=== PATIENT | female | born 1930 | race Caucasian/White ===

== ENCOUNTER 2017-03-05 13:58 | Inpatient (IN) | payer MEDICARE, OTHER ==
[~2017-03-05] VITALS: Ht 157.5 cm; Wt 53.5 kg
--- NOTE | 2017-03-05 14:34 | Emergency Room Report ---
History of Present Illness General Chief Complaint: Gastrointestinal Bleed Source: Family Member Present Illness HPI Patient is a 86-year-old female who presented after increased rectal bleeding. Patient was noted to have prior history of ulcer disease. The patient had reportedly been taking increased nonsteroidal anti-inflammatory medications after the shoulder reduction. Injury reportedly had been healed. The patient had not been vomiting any blood. She reportedly had a bloody stool intermittently for the past one week. History is obtained from the patient's daughter. The patient had been referred to Dr. Concepcion for GI as well as Dr. Jc June. Allergies: Coded Allergies: No Known Allergies (Unverified , 03/05/17) Patient History Past Medical History: see triage record Reviewed Nursing Documentation: PMH: Agreed, PSxH: Agreed Nursing Documentation-PMH Hx Cardiac Problems: No Hx Hypertension: No Hx Pacemaker: No Hx Asthma: No Hx COPD: No Hx Diabetes: No Hx Cancer: No Hx Gastrointestinal Problems: Yes Hx Dialysis: No - Acute kidney injury History Of Psychiatric Problem: No Hx Neurological Problems: No Hx Cerebrovascular Accident: No Hx Seizures: No Review of Systems All Other Systems: negative except mentioned in HPI Physical Exam Vital Signs Date Time Temp Pulse Resp B/P (MAP) Pulse Ox O2 Delivery O2 Flow Rate FiO2 03/05/17 14:10 98.4 83 16 136/73 97 Room Air Sp02 EP Interpretation: reviewed, normal General Appearance: normal inspection, well appearing, no apparent distress, alert, GCS 15 Head: atraumatic ENT: normal ENT inspection, hearing grossly normal, normal voice Neck: normal inspection, full range of motion, supple, no bony tend Respiratory: normal inspection, lungs clear, normal breath sounds, no respiratory distress, no retraction, no wheezing Cardiovascular #1: regular rate, rhythm Gastrointestinal: normal inspection, normal bowel sounds, non tender, soft, no guarding, no hernia Genitourinary: no CVA tenderness Musculoskeletal: normal inspection, back normal, normal range of motion Neurologic: normal inspection, alert, responsive, speech normal Psychiatric: normal inspection, judgement/insight normal, mood/affect normal Skin: normal inspection, normal color, no rash Medical Decision Making Diagnostic Impression: Primary Impression: Anemia Additional Impressions: Rectal bleed Hx of ulcer disease ER Course Patient presented for rectal bleeding. The patient presented for rectal bleeding. The differential diagnosis included but was not limited to ulcer, diverticulosis, aortic aneurysm, arteriovenous formation, coagulopathy, cancer among others. Because of complexity of patient's case laboratory testing and imaging studies were ordered.The laboratory studies showed initial hemoglobin of 10. The patient noted to have adequate platelet count. Dr. Jc June was contacted for inpatient management due to prior relationship with the patient and continuity of care. Labs Test 03/05/17 14:48 03/05/17 15:20 White Blood Count 9.7 K/UL (4.8-10.8) Red Blood Count 3.60 M/UL (4.20-5.40) Hemoglobin 10.8 G/DL (12.0-16.0) Hematocrit 33.7 % (37.0-47.0) Mean Corpuscular Volume 94 FL (80-99) Mean Corpuscular Hemoglobin 30.2 PG (27.0-31.0) Mean Corpuscular Hemoglobin Concent 32.2 G/DL (32.0-36.0) Red Cell Distribution Width 13.3 % (11.6-14.8) Platelet Count 300 K/UL (150-450) Mean Platelet Volume 6.9 FL (6.5-10.1) Neutrophils (%) (Auto) 67.8 % (45.0-75.0) Lymphocytes (%) (Auto) 23.3 % (20.0-45.0) Monocytes (%) (Auto) 6.9 % (1.0-10.0) Eosinophils (%) (Auto) 0.8 % (0.0-3.0) Basophils (%) (Auto) 1.2 % (0.0-2.0) Prothrombin Time 10.2 SEC (9.30-11.50) Prothromb Time International Ratio 1.0 (0.9-1.1) Activated Partial Thromboplast Time 25 SEC (23-33) Sodium Level 140 MMOL/L (136-145) Potassium Level 4.0 MMOL/L (3.5-5.1) Chloride Level 105 MMOL/L (98-107) Carbon Dioxide Level 24 MMOL/L (21-32) Anion Gap 11 mmol/L (5-15) Blood Urea Nitrogen 17 mg/dL (7-18) Creatinine 1.3 MG/DL (0.55-1.30) Estimat Glomerular Filtration Rate mL/min (>60) Glucose Level 72 MG/DL (74-106) Calcium Level 8.6 MG/DL (8.5-10.1) Total Bilirubin 0.2 MG/DL (0.2-1.0) Aspartate Amino Transf (AST/SGOT) 17 U/L (15-37) Alanine Aminotransferase (ALT/SGPT) 23 U/L (12-78) Alkaline Phosphatase 45 U/L (46-116) Troponin I 0.000 ng/mL (0.000-0.056) Total Protein 7.3 G/DL (6.4-8.2) Albumin 3.5 G/DL (3.4-5.0) Globulin 3.8 g/dL Albumin/Globulin Ratio 0.9 (1.0-2.7) Lipase 106 U/L (73-393) Salicylates Level 4.5 ug/mL (2.8-20) Urine Color Pale yellow Urine Appearance Clear Urine pH 6 (4.5-8.0) Urine Specific [place] 1.015 (1.005-1.035) Urine Protein Negative (NEGATIVE) Urine Glucose (UA) Negative (NEGATIVE) Urine Ketones Negative (NEGATIVE) Urine Occult Blood 2+ (NEGATIVE) Urine Nitrite Negative (NEGATIVE) Urine Bilirubin Negative (NEGATIVE) Urine Urobilinogen Normal MG/DL (0.0-1.0) Urine Leukocyte Esterase Negative (NEGATIVE) Urine RBC 5-10 /HPF (0 - 2) Urine WBC 0-2 /HPF (0 - 2) Urine Squamous Epithelial Cells Occasional /LPF Urine Bacteria Occasional /HPF (NONE) EKG Diagnostic Results Rate: normal Rhythm: NSR ST Segments: no acute changes Rhythm Strip Diag. Results EP Interpretation: yes Rhythm: NSR, no PVC's, no ectopy Last Vital Signs Date Time Temp Pulse Resp B/P (MAP) Pulse Ox O2 Delivery O2 Flow Rate FiO2 03/05/17 14:10 98.4 83 16 136/73 97 Room Air Status: unchanged Disposition: ADMITTED INPATIENT Condition: Serious Ernst Delgado Mar 05, 2017 14:34
[2017-03-05 15:00] VITALS: BP 136/65
[2017-03-05 15:09] LABS: ANION GAP 11 mmol/L (5-15); CALCIUM 8.6 MG/DL (8.5-10.1); CARBON DIOXIDE 24 MMOL/L (21-32); CHLORIDE 105 MMOL/L (98-107); CREATININE 1.3 MG/DL (0.55-1.30); SODIUM 140 MMOL/L (136-145)
[2017-03-05 15:10] LABS: BASOPHILS % (AUTO) 1.2 % (0.0-2.0); EOSINOPHILS % (AUTO) 0.8 % (0.0-3.0); LYMPHOCYTES % (AUTO) 23.3 % (20.0-45.0); MEAN CORPUSCULAR HEMOGLOBIN 30.2 PG (27.0-31.0); MEAN CORPUSCULAR HGB CONC 32.2 G/DL (32.0-36.0); MEAN CORPUSCULAR VOLUME 94 FL (80-99); MEAN PLATELET VOLUME 6.9 FL (6.5-10.1); MONOCYTES % (AUTO) 6.9 % (1.0-10.0); NEUTROPHILS % (AUTO) 67.8 % (45.0-75.0); PLATELET COUNT 300 K/UL (150-450); PROTHROMBIN TIME 10.2 SEC (9.30-11.50); RED CELL DISTRIBUTION WIDTH 13.3 % (11.6-14.8); WHITE BLOOD COUNT 9.7 K/UL (4.8-10.8)
[2017-03-05 15:13] LABS: ALANINE AMINOTRANSFERASE 23 U/L (12-78); ALBUMIN/GLOBULIN RATIO 0.9 (1.0-2.7); ASPARTATE AMINO TRANSFERASE 17 U/L (15-37); LIPASE 106 U/L (73-393); TOTAL PROTEIN 7.3 G/DL (6.4-8.2)
--- NOTE | 2017-03-05 15:29 | GI Initial Consult Note ---
PreciousCarina Womackoi N.PKorina 03/05/17 1529: History of Present Illness General Date patient seen: Mar 05, 2017 Time patient seen: 15:16 Reason for Hospitalization: Gastrointestinal Bleed Reason for Consultation: RECTAL BLEED Present Illness HPI Patient is a 86-year-old female who presented after increased rectal bleeding. Patient was noted to have prior history of ulcer disease. The patient had reportedly been taking increased nonsteroidal anti-inflammatory medications after the shoulder reduction. Injury reportedly had been healed. The patient had not been vomiting any blood. She reportedly had a bloody stool intermittently for the past one week. History is obtained from the patient's daughter. The patient had been referred to Dr. Perales for GI as well as Dr. Jc June. GI consulted for rectal bleed. HPI as noted above. Pt seen on ED, awake A&Ox4 NAD with no active s/sx of N/V/D. All history obtained from daughter. Last episode of rectal bleed was yesterday and minimal; described as bright red and chunks of maroon color. No hematochezia or melena. Patient takes prune juice for her constipation. External hemorrhoids noted. No active rectal bleed at this time. Per daughter, the patient tends to overdose herself on NSAIDS for her ortho issues. She also is noted to have a history of ulcers. The patient last EGD/colonoscopy was performed as an outpatient last year by Dr. Pili Wheat with unremarkable results. She presents today with anemia. No leukocytosis noted. Home Meds Reported Medications Zolpidem Tartrate* (AMBIEN*) 10 Mg Tablet, 10 MG ORAL HS, TAB 03/05/17 Allergies: Coded Allergies: No Known Allergies (Unverified , 03/05/17) Patient History Limited by: language barrier History Provided By: Family Member, Medical Record PMH Narrative Past Medical History: see triage record Reviewed Nursing Documentation: PMH: Agreed, PSxH: Agreed Nursing Documentation-PMH Hx Cardiac Problems: No Hx Hypertension: No Hx Pacemaker: No Hx Asthma: No Hx COPD: No Hx Diabetes: No Hx Cancer: No Hx Gastrointestinal Problems: Yes Hx Dialysis: No - Acute kidney injury History Of Psychiatric Problem: No Hx Neurological Problems: No Hx Cerebrovascular Accident: No Hx Seizures: No Social History: Denies: smoking, alcohol use, drug use, other Review of Systems All Other Systems: negative except mentioned in HPI Physical Exam Vital Signs Date Time Temp Pulse Resp B/P (MAP) Pulse Ox O2 Delivery O2 Flow Rate FiO2 03/05/17 14:10 98.4 83 16 136/73 97 Room Air Sp02 EP Interpretation: reviewed, normal Labs Laboratory Tests Test 03/05/17 14:48 White Blood Count 9.7 K/UL (4.8-10.8) Red Blood Count 3.60 M/UL (4.20-5.40) L Hemoglobin 10.8 G/DL (12.0-16.0) L Hematocrit 33.7 % (37.0-47.0) L Mean Corpuscular Volume 94 FL (80-99) Mean Corpuscular Hemoglobin 30.2 PG (27.0-31.0) Mean Corpuscular Hemoglobin Concent 32.2 G/DL (32.0-36.0) Red Cell Distribution Width 13.3 % (11.6-14.8) Platelet Count 300 K/UL (150-450) Mean Platelet Volume 6.9 FL (6.5-10.1) Neutrophils (%) (Auto) 67.8 % (45.0-75.0) Lymphocytes (%) (Auto) 23.3 % (20.0-45.0) Monocytes (%) (Auto) 6.9 % (1.0-10.0) Eosinophils (%) (Auto) 0.8 % (0.0-3.0) Basophils (%) (Auto) 1.2 % (0.0-2.0) Prothrombin Time Pending Prothromb Time International Ratio Pending Activated Partial Thromboplast Time Pending Sodium Level 140 MMOL/L (136-145) Potassium Level 4.0 MMOL/L (3.5-5.1) Chloride Level 105 MMOL/L (98-107) Carbon Dioxide Level 24 MMOL/L (21-32) Anion Gap 11 mmol/L (5-15) Blood Urea Nitrogen 17 mg/dL (7-18) Creatinine 1.3 MG/DL (0.55-1.30) Estimat Glomerular Filtration Rate mL/min (>60) Glucose Level 72 MG/DL (74-106) L Calcium Level 8.6 MG/DL (8.5-10.1) Total Bilirubin 0.2 MG/DL (0.2-1.0) Aspartate Amino Transf (AST/SGOT) 17 U/L (15-37) Alanine Aminotransferase (ALT/SGPT) 23 U/L (12-78) Alkaline Phosphatase 45 U/L (46-116) L Troponin I Pending Total Protein 7.3 G/DL (6.4-8.2) Albumin 3.5 G/DL (3.4-5.0) Globulin 3.8 g/dL Albumin/Globulin Ratio 0.9 (1.0-2.7) L Lipase 106 U/L (73-393) Salicylates Level 4.5 ug/mL (2.8-20) General Appearance: well appearing, no apparent distress, alert Head: normocephalic EENT: PERRL/EOMI, normal ENT inspection Neck: supple Respiratory: normal breath sounds, no respiratory distress Cardiovascular: normal rate Gastrointestinal: normal inspection, non tender, soft, normal bowel sounds, non -distended Rectal: normal exam, hemorrhoids - external hemorrhoids with no noted bleeding. Genitourinary: no CVA tenderness Musculoskeletal: normal inspection, back normal Neurologic: normal inspection, alert, oriented x3, responsive Psychiatric: normal inspection, judgement/insight normal, memory normal Skin: normal inspection, normal color, no rash, warm/dry, palpation normal, well hydrated Lymphatic: normal inspection, no adenopathy GI: Plan Problems: (1) Rectal bleed (2) Anemia (3) Constipation (4) Bleeding hemorrhoid Plan obtain endoscopy/colonoscopy records from GI MD Dr. Pili Wheat @ . anemia work up OB stool r/o GI bleed monitor H&H, no transfusions >> patient is a Mu-ism bowel regime >> colace + miralax anusol HC BID ppi IV daily zofran prn fu labs will consider GI procedures following w/u Discussed with Dr. Perales. Thank you for this patient referral, we will follow. LAKHWINDER PERALES 03/08/17 0856: History of Present Illness General Reason for Hospitalization: Gastrointestinal Bleed Present Illness Home Meds Reported Medications Zolpidem Tartrate* (AMBIEN*) 10 Mg Tablet, 10 MG ORAL HS, TAB 03/05/17 Allergies: Coded Allergies: No Known Allergies (Unverified , 03/05/17) GI: Plan Plan The patient was seen and examined at bedside and all new and available data was reviewed in the patients chart. I agree with the above findings, impression and plan. (Patient seen earlier today. Signature stamp does not reflect patient encounter time.). - [facility] Justen N.PKorina Mar 05, 2017 15:29 LAKHWINDER PERALES Mar 08, 2017 08:56
[2017-03-05 15:43] LABS: APPEARANCE,URINE CLEAR; KETONES,URINE NEGATIVE (NEGATIVE); LEUKOCYTE ESTERASE ,URINE NEGATIVE (NEGATIVE); NITRITE,URINE NEGATIVE (NEGATIVE); PH,URINE 6 (4.5-8.0); PROTEIN,URINE NEGATIVE (NEGATIVE); UROBILINOGEN,URINE NORMAL MG/DL (0.0-1.0)
[2017-03-05 15:59] LABS: BACTERIA,URINE OCCASIONAL /HPF; SQUAMOUS EPITHELIAL CELL,UR OCCASIONAL /LPF (NONE/OCC); WBC,URINE 0-2 /HPF (0 - 2)
[2017-03-05 16:00] VITALS: BP 149/73
[2017-03-05] MEDS ORDERED: AMBIEN10 M1 ORAL (17:02)
[2017-03-05 17:05] VITALS: BP 137/54
--- NOTE | 2017-03-05 17:54 | History & Physical ---
History and Physical History & Physicial H&P dictated [id number] Dx: BRBPR - likely hemorrhoidal bleed vs diverticular bleed Diverticulosis PUD NSAID Use SHIMA plan GI consulted Anusol BID PPI Bowel regimen CORRINA CHRISTY M.D. Mar 05, 2017 17:54
[2017-03-05] MEDS ORDERED: Miralax 17gm pkt ORAL PRN (18:15)
--- NOTE | 2017-03-05 18:20 | Consultation ---
History of Present Illness General Date patient seen: Mar 05, 2017 Chief Complaint: Gastrointestinal Bleed Reason for Consultation: RECTAL BLEED Present Illness HPI 86F with acute rectal bleeding x 1 week. As per patient and daughter she was doing well until last week when she noted some bright red blood after BM's. States a few days ago she had a really bad episode. As it did not improve daughter recommended she come to ED today for evaluation. States she is otherwise well. Has not had similar symptoms prior. No n/v/f/c. otherwise comfortable. Had colonoscopy 1 year ago which identified diverticulosis and grade II internal hemorrhoids. Of note, daughter states that since she had a fractured shoulder after a fall a few months ago she has been taking excessive amounts of aspirin and ibuprofen. Daughter is unsure how much she takes but believes it to be more than recommended amount. Surgery called to evaluate for bleeding hemorrhoids. Allergies: Coded Allergies: No Known Allergies (Unverified , 03/05/17) Medication History Scheduled Zolpidem Tartrate* (Ambien*), 10 MG ORAL HS, (Reported) Patient History History Provided By: Patient, Family Member, Medical Record Healthcare decision maker Resuscitation status Advanced Directive on File Past Medical/Surgical History Past Medical/Surgical History: (1) Constipation (2) Bleeding hemorrhoid (3) Anemia (4) Rectal bleed (5) Hx of ulcer disease (6) Bright red blood per rectum Review of Systems Constitutional: Denies: no symptoms, see HPI, chills, sweats, fever, malaise, weakness, other Eye: Denies: no symptoms, see HPI, eye pain, blurred vision, tearing, double vision, nose pain, nose congestion, acuity changes, discharge, other ENT: Denies: no symptoms, see HPI, ear pain, ear discharge, nose pain, nose congestion, throat pain, throat swelling, mouth pain, hearing loss, nasal discharge, other Respiratory: Denies: no symptoms, see HPI, cough, orthopnea, shortness of breath, stridor, wheezing, MCMAHON, sputum, other Cardiovascular: Denies: no symptoms, see HPI, chest pain, edema, palpitations, syncope, PND, other Gastrointestinal: Reports: constipation, other - BRBPR Genitourinary: Denies: no symptoms, see HPI, discharge, dysuria, frequency, hematuria, pain, retention, incontinence, urgency, vag bleed/dc, other Musculoskeletal: Denies: no symptoms, see HPI, back pain, gout, joint pain, joint swelling, muscle pain, muscle stiffness, other Skin: Reports: other - itching in distal lower extremities Psychiatric: Denies: no symptoms, see HPI, prior hx, anxiety, depressed feelings, emotional problems, SI, HI, hallucinations, other Neurological: Denies: no symptoms, see HPI, headache, numbness, paresthesia, seizure, tingling, tremors, focal weakness, syncope, dizziness, other Endocrine: Denies: no symptoms, see HPI, excessive sweating, flushing, intolerance to temperature, increased thirst, increased urine, unexplained weight loss, other Hematologic/Lymphatic: Denies: no symptoms, see HPI, anemia, blood clots, easy bleeding, easy bruising, swollen glands, diathesis, other Physical Exam General Appearance: no apparent distress, alert Lines, tubes and drains: peripheral HEENT: normocephalic, atraumatic, mucous membranes moist Neck: normal inspection Respiratory/Chest: lungs clear, normal breath sounds, no respiratory distress, no accessory muscle use Cardiovascular/Chest: normal peripheral pulses, normal rate Abdomen: normal bowel sounds, non tender, soft, no organomegaly, no mass Genitourinary/Rectal: normal rectal exam, other - no gross blood on rectal exam. no significantly large hemorrhoids. stool in vault Extremities: normal inspection Neurologic: alert, oriented x 3, responsive Last 24 Hour Vital Signs Date Time Temp Pulse Resp B/P (MAP) Pulse Ox O2 Delivery O2 Flow Rate FiO2 03/05/17 17:05 98.3 70 14 137/54 97 Room Air 03/05/17 14:10 98.4 83 16 136/73 97 Room Air Laboratory Tests Test 03/05/17 14:48 03/05/17 15:20 White Blood Count 9.7 K/UL (4.8-10.8) Red Blood Count 3.60 M/UL (4.20-5.40) L Hemoglobin 10.8 G/DL (12.0-16.0) L Hematocrit 33.7 % (37.0-47.0) L Mean Corpuscular Volume 94 FL (80-99) Mean Corpuscular Hemoglobin 30.2 PG (27.0-31.0) Mean Corpuscular Hemoglobin Concent 32.2 G/DL (32.0-36.0) Red Cell Distribution Width 13.3 % (11.6-14.8) Platelet Count 300 K/UL (150-450) Mean Platelet Volume 6.9 FL (6.5-10.1) Neutrophils (%) (Auto) 67.8 % (45.0-75.0) Lymphocytes (%) (Auto) 23.3 % (20.0-45.0) Monocytes (%) (Auto) 6.9 % (1.0-10.0) Eosinophils (%) (Auto) 0.8 % (0.0-3.0) Basophils (%) (Auto) 1.2 % (0.0-2.0) Prothrombin Time 10.2 SEC (9.30-11.50) Prothromb Time International Ratio 1.0 (0.9-1.1) Activated Partial Thromboplast Time 25 SEC (23-33) Sodium Level 140 MMOL/L (136-145) Potassium Level 4.0 MMOL/L (3.5-5.1) Chloride Level 105 MMOL/L (98-107) Carbon Dioxide Level 24 MMOL/L (21-32) Anion Gap 11 mmol/L (5-15) Blood Urea Nitrogen 17 mg/dL (7-18) Creatinine 1.3 MG/DL (0.55-1.30) Estimat Glomerular Filtration Rate mL/min (>60) Glucose Level 72 MG/DL (74-106) L Calcium Level 8.6 MG/DL (8.5-10.1) Total Bilirubin 0.2 MG/DL (0.2-1.0) Aspartate Amino Transf (AST/SGOT) 17 U/L (15-37) Alanine Aminotransferase (ALT/SGPT) 23 U/L (12-78) Alkaline Phosphatase 45 U/L (46-116) L Troponin I 0.000 ng/mL (0.000-0.056) Total Protein 7.3 G/DL (6.4-8.2) Albumin 3.5 G/DL (3.4-5.0) Globulin 3.8 g/dL Albumin/Globulin Ratio 0.9 (1.0-2.7) L Lipase 106 U/L (73-393) Salicylates Level 4.5 ug/mL (2.8-20) Urine Color Pale yellow Urine Appearance Clear Urine pH 6 (4.5-8.0) Urine Specific [place] 1.015 (1.005-1.035) Urine Protein Negative (NEGATIVE) Urine Glucose (UA) Negative (NEGATIVE) Urine Ketones Negative (NEGATIVE) Urine Occult Blood 2+ (NEGATIVE) H Urine Nitrite Negative (NEGATIVE) Urine Bilirubin Negative (NEGATIVE) Urine Urobilinogen Normal MG/DL (0.0-1.0) Urine Leukocyte Esterase Negative (NEGATIVE) Urine RBC 5-10 /HPF (0 - 2) H Urine WBC 0-2 /HPF (0 - 2) Urine Squamous Epithelial Cells Occasional /LPF Urine Bacteria Occasional /HPF (NONE) Height (Feet): 5 Height (Inches): 2.00 Weight (Pounds): 118 Medications Current Medications Medications (Trade) Dose Ordered Sig/Ann Route PRN Reason Start Time Stop Time Status Last Admin Dose Admin Acetaminophen (Tylenol) 650 mg Q4H PRN ORAL Mild Pain (Pain Scale 1-3) 03/05/17 18:15 04/04/17 18:14 UNV Dextrose (Dextrose 50%) STAT PRN IV Hypoglycemia 03/05/17 18:15 04/04/17 18:14 UNV Diphenhydramine HCl (Benadryl) 25 mg Q6H PRN ORAL Itching/Pruritis 03/05/17 18:15 04/04/17 18:14 UNV Docusate Sodium (Colace) 100 mg EVERY 12 HOURS ORAL 03/05/17 21:00 04/04/17 20:59 UNV Docusate Sodium (Colace) 100 mg TID ORAL 03/06/17 09:00 04/05/17 08:59 Hydrocortisone (Anusol HC) 1 applic TWICE A DAY RECTAL 03/05/17 18:00 04/04/17 17:59 UNV Hydrocortisone (Anusol HC) 1 supp TWICE A DAY RECTAL 03/05/17 18:15 04/04/17 18:14 UNV Ondansetron HCl (Zofran) 4 mg Q6H PRN IVP Nausea & Vomiting 03/05/17 15:30 04/04/17 15:29 03/05/17 15:52 Ondansetron HCl (Zofran) 4 mg Q6H PRN IVP Nausea & Vomiting 03/05/17 18:15 04/04/17 18:14 UNV Pantoprazole (Protonix) 40 mg DAILY IV 03/05/17 18:15 04/04/17 18:14 UNV Pantoprazole (Protonix) 40 mg DAILY IVP 03/06/17 09:00 04/05/17 08:59 Polyethylene Glycol (Miralax) 17 gm BEDTIME ORAL 03/05/17 21:00 04/04/17 20:59 Polyethylene Glycol (Miralax) 17 gm HSPRN PRN ORAL Constipation 03/05/17 18:15 04/04/17 18:14 UNV Sodium Chloride 1,000 ml @ 75 mls/hr [id number] IVLG 03/05/17 19:02 04/04/17 19:01 UNV Assessment/Plan Problem List: (1) Bright red blood per rectum Assessment & Plan: 86F with BRBPR. likely due to either hemorrhoidal disease vs diverticulitis. likely pronounced and prolonged because of excessive ibuprofen and aspirin ingestion. afebrile, HD stable, VSS, labs reviewed. exam with no active bleeding on LESLY. -will monitor for now. -trend H/H for 24hrs -will discuss with GI and primary -no acute surgical intervention necessary. if does have active bleeding will perform rigid sigmoidoscopy. ICD Codes: K62.5 - Hemorrhage of anus and rectum SNOMED: [id number] Status: stable Morgan Jose Mar 05, 2017 18:20
[2017-03-05 18:22] VITALS: BP 137/67
--- NOTE | 2017-03-05 18:45 | History and Physical Report ---
DATE OF ADMISSION: 03/05/2017 HISTORY OF PRESENT ILLNESS: This is an 86-year-old [place] female with history of H. pylori related peptic ulcer disease/gastritis, hiatal hernia, and CKD who presents to the emergency room for bright red blood per rectum that started earlier today. She states that she had about a tablespoon of blood in the toilet bowel earlier today when using the restroom. She has epigastric pain, which she states is chronic. She states that she takes NSAIDs including ibuprofen and aspirin regularly for abdominal pain as well as some left leg pain. She complains of left leg burning. She has been nauseous, but has not had any vomiting. Per daughter, she has been taking ibuprofen excessively. The patient had endoscopy and colonoscopy on 02/06/2016 that showed colonic diverticulosis as well as internal hemorrhoids and H. pylori, positive gastritis and nonpitting multiple ulcers of the stomach. PAST MEDICAL HISTORY: Peptic ulcer disease, gastritis, H. pylori, and left shoulder reduction, and SHIMA. PAST SURGICAL HISTORY: None. MEDICATIONS: Reviewed in [employer]. SOCIAL HISTORY: The patient does not smoke, drinks alcohol, or use any drugs. REVIEW OF SYSTEMS: A 10-point review of systems negative except for pertinent positives mentioned above. PHYSICAL EXAMINATION: GENERAL: No acute distress. The patient is alert, awake and oriented x3. VITAL SIGNS: Temperature 98.4 degrees, pulse is 83, respiratory rate 16, blood pressure 136/73, and O2 saturation 97% on room air. HEENT: Normocephalic/atraumatic. NECK: Supple. No JVD. LUNGS: Clear to auscultation bilaterally. No crackles, rhonchi, or rales. CARDIOVASCULAR: Regular rate and rhythm. Normal S1 and S2. ABDOMEN: Soft, nontender, and nondistended. EXTREMITIES: No clubbing, cyanosis, or edema. NEUROLOGIC: The patient is awake and able to move all extremities. PSYCHIATRIC: Appropriate mood and affect. SKIN: Normal inspection. No rash. LABORATORY AND DIAGNOSTIC DATA: CBC white count of 9.7, hemoglobin 10.8, and platelet count is 300. BMP, sodium 140, potassium 4, chloride is 105, CO2 24, BUN is 17 and creatinine 1.3. LFTs are within normal limits. ASSESSMENT: 1. Bright red blood per rectum with differential diagnosis of hemorrhoidal bleed versus, thus less likely diverticular bleed. 2. Anemia. 3. Hemorrhoids. 4. History of peptic ulcer disease. 5. History of Helicobacter pylori. PLAN: 1. Admit the patient to Medical/Surgical. 2. Gastrointestinal consult. 3. Bowel regimen for constipation. 4. Anusol HC b.i.d. 5. PPI. 6. Hold NSAIDs. 7. IV fluids and monitor creatinine closely. 8. Renal consult for renal failure. 9. Monitor hemoglobin closely. 10. DVT prophylaxis none because of gastrointestinal bleed. 11. Full code. Oswald Arroyo MD DR: MIKI JOB#: [id number] CC:
[2017-03-05 20:30] VITALS: BP 142/88
[2017-03-05] MEDS ORDERED: Docusate 100mg cap ORAL SCH (21:00)
[2017-03-05 21:30] VITALS: BP 150/80
[2017-03-05] MEDS ORDERED: Zolpidem 5mg tab ORAL PRN ×2 (21:45→22:00)
[2017-03-05] MEDS: Pantoprazole Inj IV SCH (22:02)
[2017-03-05] MEDS: Anusol HC Supp RECTAL SCH (22:03)
[2017-03-05] MEDS: Miralax 17gm pkt ORAL SCH (22:03)
[2017-03-06] VITALS (7 sets, daily range): BP systolic 134–160; BP diastolic 71–93
[2017-03-06 08:00] LABS: BASOPHILS % (AUTO) 1.1 % (0.0-2.0); EOSINOPHILS % (AUTO) 1.6 % (0.0-3.0); LYMPHOCYTES % (AUTO) 28.2 % (20.0-45.0); MEAN CORPUSCULAR HEMOGLOBIN 31.5 PG (27.0-31.0); MEAN CORPUSCULAR HGB CONC 33.8 G/DL (32.0-36.0); MEAN CORPUSCULAR VOLUME 93 FL (80-99); MEAN PLATELET VOLUME 6.6 FL (6.5-10.1); MONOCYTES % (AUTO) 8.4 % (1.0-10.0); NEUTROPHILS % (AUTO) 60.7 % (45.0-75.0); PLATELET COUNT 259 K/UL (150-450); RED BLOOD COUNT 3.27 M/UL (4.20-5.40); WHITE BLOOD COUNT 7.6 K/UL (4.8-10.8)
[2017-03-06] MEDS ORDERED: Pantoprazole Inj IVP SCH (09:00)
[2017-03-06 09:14] LABS: ALANINE AMINOTRANSFERASE 24 U/L (12-78); ALBUMIN/GLOBULIN RATIO 0.9 (1.0-2.7); ANION GAP 11 mmol/L (5-15); ASPARTATE AMINO TRANSFERASE 19 U/L (15-37); CALCIUM 8.4 MG/DL (8.5-10.1); CARBON DIOXIDE 22 MMOL/L (21-32); CHLORIDE 107 MMOL/L (98-107); CREATININE 1.2 MG/DL (0.55-1.30); POTASSIUM 4.1 MMOL/L (3.5-5.1); SODIUM 139 MMOL/L (136-145); TOTAL PROTEIN 6.4 G/DL (6.4-8.2)
[2017-03-06] MEDS: Anusol HC Supp RECTAL SCH ×2 (09:23→17:44)
[2017-03-06] MEDS: Docusate 100mg cap ORAL SCH ×3 (09:23→17:44)
--- NOTE | 2017-03-06 11:51 | General Surgery Progress Note ---
General Surgery-Progress Note Subjective Additional Comments Patient seen and examined at bedside. no acute events. has not had any rectal bleeding or BM's since admission. States that she not mainly feels discomfort/ burning in her bilateral lower extremities. Objective Last 24 Hour Vital Signs Date Time Temp Pulse Resp B/P (MAP) Pulse Ox O2 Delivery O2 Flow Rate FiO2 03/06/17 08:07 97.4 75 20 152/81 95 Room Air 03/06/17 04:00 98.4 81 17 141/80 98 Room Air 03/06/17 00:00 98.1 79 18 147/77 97 Room Air 03/05/17 21:30 98.3 76 18 150/80 96 Room Air 03/05/17 21:20 99.1 74 16 142/88 97 Room Air 03/05/17 20:30 99.1 74 16 142/88 97 Room Air 03/05/17 18:22 99.4 70 17 137/67 97 Room Air 03/05/17 17:05 98.3 70 14 137/54 97 Room Air 03/05/17 16:00 98.4 76 22 149/73 98 Room Air 03/05/17 15:00 98.4 82 17 136/65 99 Room Air 03/05/17 14:10 98.4 83 16 136/73 97 Room Air I&O Intake and Output 03/06/17 03/07/17 19:00 07:00 Intake Total 120 ml Balance 120 ml Intake Oral 120 ml # Voids 1 Cardiovascular: RSR Respiratory: clear Abdomen: soft, flat, non-tender, present bowel sounds Extremities: no edema, no cyanosis, other - good peripheral pulses DP/PT. no venous congestion. no edema. no skin changes Laboratory Tests Test 03/05/17 14:48 03/05/17 15:20 03/06/17 05:00 03/06/17 05:10 White Blood Count 9.7 K/UL (4.8-10.8) 7.6 K/UL (4.8-10.8) Red Blood Count 3.60 M/UL (4.20-5.40) L 3.27 M/UL (4.20-5.40) L Hemoglobin 10.8 G/DL (12.0-16.0) L 10.3 G/DL (12.0-16.0) L Hematocrit 33.7 % (37.0-47.0) L 30.5 % (37.0-47.0) L Mean Corpuscular Volume 94 FL (80-99) 93 FL (80-99) Mean Corpuscular Hemoglobin 30.2 PG (27.0-31.0) 31.5 PG (27.0-31.0) H Mean Corpuscular Hemoglobin Concent 32.2 G/DL (32.0-36.0) 33.8 G/DL (32.0-36.0) Red Cell Distribution Width 13.3 % (11.6-14.8) 13.0 % (11.6-14.8) Platelet Count 300 K/UL (150-450) 259 K/UL (150-450) Mean Platelet Volume 6.9 FL (6.5-10.1) 6.6 FL (6.5-10.1) Neutrophils (%) (Auto) 67.8 % (45.0-75.0) 60.7 % (45.0-75.0) Lymphocytes (%) (Auto) 23.3 % (20.0-45.0) 28.2 % (20.0-45.0) Monocytes (%) (Auto) 6.9 % (1.0-10.0) 8.4 % (1.0-10.0) Eosinophils (%) (Auto) 0.8 % (0.0-3.0) 1.6 % (0.0-3.0) Basophils (%) (Auto) 1.2 % (0.0-2.0) 1.1 % (0.0-2.0) Prothrombin Time 10.2 SEC (9.30-11.50) Prothromb Time International Ratio 1.0 (0.9-1.1) Activated Partial Thromboplast Time 25 SEC (23-33) Sodium Level 140 MMOL/L (136-145) 139 MMOL/L (136-145) Potassium Level 4.0 MMOL/L (3.5-5.1) 4.1 MMOL/L (3.5-5.1) Chloride Level 105 MMOL/L (98-107) 107 MMOL/L (98-107) Carbon Dioxide Level 24 MMOL/L (21-32) 22 MMOL/L (21-32) Anion Gap 11 mmol/L (5-15) 11 mmol/L (5-15) Blood Urea Nitrogen 17 mg/dL (7-18) 14 mg/dL (7-18) Creatinine 1.3 MG/DL (0.55-1.30) 1.2 MG/DL (0.55-1.30) Estimat Glomerular Filtration Rate mL/min (>60) mL/min (>60) Glucose Level 72 MG/DL (74-106) L 70 MG/DL (74-106) L Calcium Level 8.6 MG/DL (8.5-10.1) 8.4 MG/DL (8.5-10.1) L Total Bilirubin 0.2 MG/DL (0.2-1.0) 0.3 MG/DL (0.2-1.0) Aspartate Amino Transf (AST/SGOT) 17 U/L (15-37) 19 U/L (15-37) Alanine Aminotransferase (ALT/SGPT) 23 U/L (12-78) 24 U/L (12-78) Alkaline Phosphatase 45 U/L (46-116) L 45 U/L (46-116) L Troponin I 0.000 ng/mL (0.000-0.056) Total Protein 7.3 G/DL (6.4-8.2) 6.4 G/DL (6.4-8.2) Albumin 3.5 G/DL (3.4-5.0) 3.1 G/DL (3.4-5.0) L Globulin 3.8 g/dL 3.3 g/dL Albumin/Globulin Ratio 0.9 (1.0-2.7) L 0.9 (1.0-2.7) L Lipase 106 U/L (73-393) Salicylates Level 4.5 ug/mL (2.8-20) Urine Color Pale yellow Urine Appearance Clear Urine pH 6 (4.5-8.0) Urine Specific [place] 1.015 (1.005-1.035) Urine Protein Negative (NEGATIVE) Urine Glucose (UA) Negative (NEGATIVE) Urine Ketones Negative (NEGATIVE) Urine Occult Blood 2+ (NEGATIVE) H Urine Nitrite Negative (NEGATIVE) Urine Bilirubin Negative (NEGATIVE) Urine Urobilinogen Normal MG/DL (0.0-1.0) Urine Leukocyte Esterase Negative (NEGATIVE) Urine RBC 5-10 /HPF (0 - 2) H Urine WBC 0-2 /HPF (0 - 2) Urine Squamous Epithelial Cells Occasional /LPF Urine Bacteria Occasional /HPF (NONE) Plan Problems: (1) Bright red blood per rectum Assessment & Plan: 86F with BRBPR. likely due to either hemorrhoidal disease vs diverticulitis. likely pronounced and prolonged because of excessive ibuprofen and aspirin ingestion. afebrile, HD stable, VSS, labs reviewed. H/H have been stable on repeat. exam with no active bleeding on LESLY. -continue to trend H/H. if stable for >24hrs and no active bleeding okay to d/ c from surgical standpoint -advised patient that she needs to be very careful with ASA and Ibuprofen intake. should only be taken as directed. Morgan Jose Mar 06, 2017 11:51
--- NOTE | 2017-03-06 14:54 | Consultation ---
Consult Note Assessment/Plan Renal consult dictated #[id number] ALFRED ERWIN Mar 06, 2017 14:54
--- NOTE | 2017-03-06 15:29 | Internal Med Progress Note ---
Subjective Date of Service: Mar 06, 2017 Physician Name Robe Pratt Attending Physician Jc June Current Medications Medications (Trade) Dose Ordered Sig/Ann Route PRN Reason Start Time Stop Time Status Last Admin Dose Admin Acetaminophen (Tylenol) 650 mg Q4H PRN ORAL Mild Pain (Pain Scale 1-3) 03/05/17 21:00 04/04/17 20:59 03/06/17 10:35 Dextrose (Dextrose 50%) STAT PRN IV Hypoglycemia 03/05/17 18:15 04/04/17 18:14 Diphenhydramine HCl (Benadryl) 25 mg Q6H PRN ORAL Itching/Pruritis 03/05/17 18:15 04/04/17 18:14 Docusate Sodium (Colace) 100 mg TID ORAL 03/06/17 09:00 04/05/17 08:59 03/06/17 13:08 Hydrocortisone (Anusol HC) 1 applic TWICE A DAY RECTAL 03/05/17 22:00 04/04/17 21:59 03/06/17 09:23 Hydrocortisone (Anusol HC) 1 supp TWICE A DAY RECTAL 03/05/17 22:00 04/04/17 21:59 03/06/17 09:23 Ondansetron HCl (Zofran) 4 mg Q6H PRN IVP Nausea & Vomiting 03/05/17 15:30 04/04/17 15:29 03/06/17 09:23 Pantoprazole (Protonix) 40 mg QHS IV 03/05/17 21:00 04/04/17 20:59 03/05/17 22:02 Polyethylene Glycol (Miralax) 17 gm BEDTIME ORAL 03/05/17 21:00 04/04/17 20:59 03/05/17 22:03 Sodium Chloride 1,000 ml @ 75 mls/hr [id number] IVLG 03/05/17 21:00 04/04/17 20:59 03/06/17 10:56 Zolpidem Tartrate (Ambien) 5 mg HSPRN PRN ORAL Insomnia 03/06/17 01:45 03/13/17 01:44 Allergies: Coded Allergies: No Known Allergies (Unverified , 03/05/17) ROS Limited/Unobtainable: No Constitutional: Reports: no symptoms HEENT: Reports: no symptoms Cardiovascular: Reports: no symptoms Respiratory: Reports: no symptoms Gastrointestinal/Abdominal: Reports: no symptoms Genitourinary: Reports: no symptoms Neurologic/Psychiatric: Reports: no symptoms Subjective 86 YO F admitted with bright red blood rectal bleed. Cover for [facility] Med-Dr Arroyo. Objective Last Vital Signs Date Time Temp Pulse Resp B/P (MAP) Pulse Ox O2 Delivery O2 Flow Rate FiO2 03/06/17 12:00 98.4 74 20 153/71 97 Room Air General Appearance: alert, mild distress, thin EENT: PERRL/EOMI, normal ENT inspection, TMs normal Neck: non-tender, normal alignment, supple Cardiovascular: normal peripheral pulses, normal rate, regular rhythm, no gallop/murmur, no JVD Respiratory/Chest: chest wall non-tender, lungs clear, normal breath sounds, no respiratory distress, no accessory muscle use Abdomen: soft, no organomegaly, no mass, decreased bowel sounds, tender Extremities: normal range of motion Neurologic: reconsignment clerk II-XII grossly normal, no motor/sensory deficits Skin: normal pigmentation, warm/dry Laboratory Tests Test 03/06/17 05:00 03/06/17 05:10 White Blood Count 7.6 K/UL (4.8-10.8) Red Blood Count 3.27 M/UL (4.20-5.40) L Hemoglobin 10.3 G/DL (12.0-16.0) L Hematocrit 30.5 % (37.0-47.0) L Mean Corpuscular Volume 93 FL (80-99) Mean Corpuscular Hemoglobin 31.5 PG (27.0-31.0) H Mean Corpuscular Hemoglobin Concent 33.8 G/DL (32.0-36.0) Red Cell Distribution Width 13.0 % (11.6-14.8) Platelet Count 259 K/UL (150-450) Mean Platelet Volume 6.6 FL (6.5-10.1) Neutrophils (%) (Auto) 60.7 % (45.0-75.0) Lymphocytes (%) (Auto) 28.2 % (20.0-45.0) Monocytes (%) (Auto) 8.4 % (1.0-10.0) Eosinophils (%) (Auto) 1.6 % (0.0-3.0) Basophils (%) (Auto) 1.1 % (0.0-2.0) Sodium Level 139 MMOL/L (136-145) Potassium Level 4.1 MMOL/L (3.5-5.1) Chloride Level 107 MMOL/L (98-107) Carbon Dioxide Level 22 MMOL/L (21-32) Anion Gap 11 mmol/L (5-15) Blood Urea Nitrogen 14 mg/dL (7-18) Creatinine 1.2 MG/DL (0.55-1.30) Estimat Glomerular Filtration Rate mL/min (>60) Glucose Level 70 MG/DL (74-106) L Calcium Level 8.4 MG/DL (8.5-10.1) L Total Bilirubin 0.3 MG/DL (0.2-1.0) Aspartate Amino Transf (AST/SGOT) 19 U/L (15-37) Alanine Aminotransferase (ALT/SGPT) 24 U/L (12-78) Alkaline Phosphatase 45 U/L (46-116) L Total Protein 6.4 G/DL (6.4-8.2) Albumin 3.1 G/DL (3.4-5.0) L Globulin 3.3 g/dL Albumin/Globulin Ratio 0.9 (1.0-2.7) L Intake and Output 03/06/17 03/07/17 19:00 07:00 Intake Total 645 ml Balance 645 ml Intake Oral 120 ml IV Total 525 ml # Voids 1 Assessment/Plan Assessment/Plan ASSESSMENT: 1. Bright red blood per rectum with differential diagnosis of hemorrhoidal bleed versus, thus less likely diverticular bleed. 2. Anemia. 3. Hemorrhoids. 4. History of peptic ulcer disease. 5. History of Helicobacter pylori. PLAN: 1. Admit the patient to Medical/Surgical. 2. Gastrointestinal consult. 3. Bowel regimen for constipation. 4. Anusol HC b.i.d. 5. PPI. 6. Hold NSAIDs. 7. IV fluids and monitor creatinine closely. 8. Renal consult for renal failure. 9. Monitor hemoglobin closely. 10. DVT prophylaxis none because of gastrointestinal bleed. 11. Full code. ROBE PRATT Mar 06, 2017 15:29
--- NOTE | 2017-03-06 17:12 | General Progress Note ---
Assessment/Plan Assessment/Plan Assessment - Rectal bleed - epigastric pain - constipation - anemia Recommendations - monitor CBC - obtain prior EGD/Colon records - bowel regimen - monitor H&H, no transfusions >> patient is a [employer] - will consider GI procedures following w/u Subjective Allergies: Coded Allergies: No Known Allergies (Unverified , 03/05/17) Subjective c/o mild epigastric pain tolerating PO d/w RN Objective Last 24 Hour Vital Signs Date Time Temp Pulse Resp B/P (MAP) Pulse Ox O2 Delivery O2 Flow Rate FiO2 03/06/17 16:03 98.3 72 18 134/72 96 Room Air 03/06/17 12:00 98.4 74 20 153/71 97 Room Air 03/06/17 08:07 97.4 75 20 152/81 95 Room Air 03/06/17 04:00 98.4 81 17 141/80 98 Room Air 03/06/17 00:00 98.1 79 18 147/77 97 Room Air 03/05/17 21:30 98.3 76 18 150/80 96 Room Air 03/05/17 21:20 99.1 74 16 142/88 97 Room Air 03/05/17 20:30 99.1 74 16 142/88 97 Room Air 03/05/17 18:22 99.4 70 17 137/67 97 Room Air Intake and Output 03/06/17 03/07/17 19:00 07:00 Intake Total 840 ml Balance 840 ml Intake Oral 240 ml IV Total 600 ml # Voids 2 Laboratory Tests 03/06/17 05:00: White Blood Count 7.6, Red Blood Count 3.27L, Hemoglobin 10.3L, Hematocrit 30.5L , Mean Corpuscular Volume 93, Mean Corpuscular Hemoglobin 31.5H, Mean Corpuscular Hemoglobin Concent 33.8, Red Cell Distribution Width 13.0, Platelet Count 259, Mean Platelet Volume 6.6, Neutrophils (%) (Auto) 60.7, Lymphocytes (% ) (Auto) 28.2, Monocytes (%) (Auto) 8.4, Eosinophils (%) (Auto) 1.6, Basophils ( %) (Auto) 1.1 03/06/17 05:10: Sodium Level 139, Potassium Level 4.1, Chloride Level 107, Carbon Dioxide Level 22, Anion Gap 11, Blood Urea Nitrogen 14, Creatinine 1.2, Estimat Glomerular Filtration Rate , Glucose Level 70L, Calcium Level 8.4L, Total Bilirubin 0.3, Aspartate Amino Transf (AST/SGOT) 19, Alanine Aminotransferase (ALT/SGPT) 24, Alkaline Phosphatase 45L, Total Protein 6.4, Albumin 3.1L, Globulin 3.3, Albumin /Globulin Ratio 0.9L Height (Feet): 5 Height (Inches): 2.00 Weight (Pounds): 118 Objective Thin elderly woman NCAT supple CTA RRR soft ND, mild TTP no edema HARISH CONROY Mar 06, 2017 17:12
[2017-03-06] MEDS: Pantoprazole Inj IV SCH (20:38)
[2017-03-06] MEDS: Miralax 17gm pkt ORAL SCH (20:38)
--- NOTE | 2017-03-06 23:30 | Consultation ---
DATE OF CONSULTATION: 03/06/2017 NEPHROLOGY CONSULTATION CONSULTING PHYSICIAN: Jc June M.D. REFERRING PHYSICIAN: Oswald Arroyo M.D. REASON FOR CONSULTATION: Renal failure. HISTORY OF PRESENT ILLNESS: This is an 86-year-old [place] female, who was admitted with chief complaint of bright red blood per rectum. The patient apparently was taking ibuprofen. She had some shoulder surgery and since then, she was taking about 6 to 8 ibuprofen daily at 200 mg each over the period of past couple of months. The patient was also taking aspirin 500 mg tablets, unknown amount. She was admitted with serum creatinine 1.3, and I was asked to see her for Nephrology. PAST MEDICAL HISTORY: Also history includes history of peptic ulcer disease, gastritis, H. pylori, and left shoulder reduction. MEDICATIONS: Reviewed in the EMR. ALLERGIES: She did not have allergy per se, but she gets dizzy and lightheaded with narcotics. SOCIAL HISTORY: No history of smoking or alcohol abuse. REVIEW OF SYSTEMS: Noncontributory. PHYSICAL EXAMINATION: GENERAL: The patient is a elderly female, in no acute distress. VITAL SIGNS: Blood pressure 153/71, pulse 74, temperature 98.4, and respirations 20. HEENT: Somewhat pale conjunctivae. Anicteric sclerae. NECK: Supple. LUNGS: Clear to auscultation. HEART: S1 and S2 without murmurs or rubs. ABDOMEN: Soft and nontender. EXTREMITIES: No cyanosis or edema. LABORATORY AND DIAGNOSTIC DATA: The chemistry panel shows serum sodium 139, potassium 4.1, chloride 107, CO2 of 22, BUN is 14, and creatinine 1.2. Albumin is 3.1. CBC shows WBC of 7.6, hematocrit is 30.5, hemoglobin is 10.3, and platelets 259,000. UA shows 5 to 10 RBCs per high-power field. No protein. ASSESSMENT: This is an 86-year-old [place] female who was admitted with bright red blood per rectum. She has renal failure. 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 Doubt any other etiology at this time such as obstruction. PLAN: 1. I would continue monitoring the BUN and creatinine. 2. She and her daughter were told that she should avoid any nonsteroidal antiinflammatory agents in the future if at all possible. 3. If the kidney function does not improve, also I would order additional tests such as a kidney ultrasound. Thank you very much for this consultation. Jc June M.D. DR: CARMENCITA JOB#: [id number] CC:
[2017-03-07] VITALS: BP 145/81
[2017-03-07] MEDS: Zolpidem 5mg tab ORAL PRN ×2 (00:19→20:18)
[2017-03-07 04:00] VITALS: BP 147/76
[2017-03-07 07:50] LABS: ANION GAP 12 mmol/L (5-15); CALCIUM 8.4 MG/DL (8.5-10.1); CARBON DIOXIDE 20 MMOL/L (21-32); CHLORIDE 107 MMOL/L (98-107); CREATININE 1.1 MG/DL (0.55-1.30); POTASSIUM 4.1 MMOL/L (3.5-5.1); SODIUM 139 MMOL/L (136-145)
[2017-03-07 07:58] LABS: BASOPHILS % (AUTO) 1.4 % (0.0-2.0); EOSINOPHILS % (AUTO) 1.4 % (0.0-3.0); MEAN CORPUSCULAR HEMOGLOBIN 31.3 PG (27.0-31.0); MEAN CORPUSCULAR HGB CONC 33.6 G/DL (32.0-36.0); MEAN CORPUSCULAR VOLUME 93 FL (80-99); MEAN PLATELET VOLUME 6.6 FL (6.5-10.1); MONOCYTES % (AUTO) 8.4 % (1.0-10.0); NEUTROPHILS % (AUTO) 63.7 % (45.0-75.0); PLATELET COUNT 273 K/UL (150-450); RED BLOOD COUNT 3.39 M/UL (4.20-5.40); WHITE BLOOD COUNT 6.7 K/UL (4.8-10.8)
[2017-03-07 08:00] VITALS: BP 158/86
[2017-03-07] MEDS: Docusate 100mg cap ORAL SCH ×3 (09:55→17:31)
[2017-03-07] MEDS: Anusol HC Supp RECTAL SCH ×2 (09:55→17:31)
[2017-03-07 12:00] VITALS: BP 139/75
--- NOTE | 2017-03-07 14:23 | General Progress Note ---
Assessment/Plan Assessment/Plan Assessment - Rectal bleed - ? anorectal - epigastric pain - constipation - anemia Recommendations - monitor CBC - obtain prior EGD/Colon records - bowel regimen - monitor H&H, no transfusions >> patient is a [employer] - will consider GI procedures following w/u Subjective Allergies: Coded Allergies: No Known Allergies (Unverified , 03/05/17) Subjective tolerating liquids d/w DTR No BM DTR requests laxative last colonoscopy 1 year ago Objective Last 24 Hour Vital Signs Date Time Temp Pulse Resp B/P (MAP) Pulse Ox O2 Delivery O2 Flow Rate FiO2 03/07/17 12:00 98.3 83 19 139/75 98 Room Air 03/07/17 08:00 97.2 77 19 158/86 98 Room Air 03/07/17 04:00 97.7 72 20 147/76 99 Room Air 03/07/17 00:00 98.6 68 19 145/81 97 03/06/17 22:29 98.3 71 18 139/80 98 Room Air 03/06/17 21:30 98.2 03/06/17 20:00 99.8 81 19 160/93 96 03/06/17 16:03 98.3 72 18 134/72 96 Room Air Laboratory Tests 03/07/17 04:40: Sodium Level 139, Potassium Level 4.1, Chloride Level 107, Carbon Dioxide Level 20L, Anion Gap 12, Blood Urea Nitrogen 11, Creatinine 1.1, Estimat Glomerular Filtration Rate , Glucose Level 83, Calcium Level 8.4L 03/07/17 04:45: White Blood Count 6.7, Red Blood Count 3.39L, Hemoglobin 10.6L, Hematocrit 31.5L , Mean Corpuscular Volume 93, Mean Corpuscular Hemoglobin 31.3H, Mean Corpuscular Hemoglobin Concent 33.6, Red Cell Distribution Width 13.0, Platelet Count 273, Mean Platelet Volume 6.6, Neutrophils (%) (Auto) 63.7, Lymphocytes (% ) (Auto) 25.0, Monocytes (%) (Auto) 8.4, Eosinophils (%) (Auto) 1.4, Basophils ( %) (Auto) 1.4 Height (Feet): 5 Height (Inches): 2.00 Weight (Pounds): 118 Objective Thin elderly woman NCAT supple CTA RRR soft ND, mild TTP no edema HARISH CONROY Mar 07, 2017 14:23
--- NOTE | 2017-03-07 14:31 | Cardiology Report ---
APPROVED REPORT EKG Measurement Heart [id number] [id number] Normal sinus rhythm Normal ECG
--- NOTE | 2017-03-07 14:38 | Nephrology Progress Note ---
Assessment/Plan Problem List: (1) ARF (acute renal failure) Assessment: better (2) Rectal bleed (3) Anemia Assessment: better Plan follow labs laxatives PRN Discussed with daughter No NSAIDs Subjective Subjective feels ok Objective Objective Last 24 Hour Vital Signs Date Time Temp Pulse Resp B/P (MAP) Pulse Ox O2 Delivery O2 Flow Rate FiO2 03/07/17 12:00 98.3 83 19 139/75 98 Room Air 03/07/17 08:00 97.2 77 19 158/86 98 Room Air 03/07/17 04:00 97.7 72 20 147/76 99 Room Air 03/07/17 00:00 98.6 68 19 145/81 97 03/06/17 22:29 98.3 71 18 139/80 98 Room Air 03/06/17 21:30 98.2 03/06/17 20:00 99.8 81 19 160/93 96 03/06/17 16:03 98.3 72 18 134/72 96 Room Air Laboratory Tests 03/07/17 04:40: Sodium Level 139, Potassium Level 4.1, Chloride Level 107, Carbon Dioxide Level 20L, Anion Gap 12, Blood Urea Nitrogen 11, Creatinine 1.1, Estimat Glomerular Filtration Rate , Glucose Level 83, Calcium Level 8.4L 03/07/17 04:45: White Blood Count 6.7, Red Blood Count 3.39L, Hemoglobin 10.6L, Hematocrit 31.5L , Mean Corpuscular Volume 93, Mean Corpuscular Hemoglobin 31.3H, Mean Corpuscular Hemoglobin Concent 33.6, Red Cell Distribution Width 13.0, Platelet Count 273, Mean Platelet Volume 6.6, Neutrophils (%) (Auto) 63.7, Lymphocytes (% ) (Auto) 25.0, Monocytes (%) (Auto) 8.4, Eosinophils (%) (Auto) 1.4, Basophils ( %) (Auto) 1.4 Height (Feet): 5 Height (Inches): 2.00 Weight (Pounds): 118 Cardiovascular: normal rate Respiratory/Chest: lungs clear Extremities: other - no edema ALFRED ERWIN Mar 07, 2017 14:38
[2017-03-07] MEDS ORDERED: Sorbitol Solution UD 30ml ORAL ONE (15:00)
[2017-03-07 16:00] VITALS: BP 122/79
--- NOTE | 2017-03-07 16:08 | General Surgery Progress Note ---
General Surgery-Progress Note Subjective Additional Comments doing well. pain improved. no n/v/f/c. had BM without blood today as per daughter H/H stable. Objective Last 24 Hour Vital Signs Date Time Temp Pulse Resp B/P (MAP) Pulse Ox O2 Delivery O2 Flow Rate FiO2 03/07/17 12:00 98.3 83 19 139/75 98 Room Air 03/07/17 08:00 97.2 77 19 158/86 98 Room Air 03/07/17 04:00 97.7 72 20 147/76 99 Room Air 03/07/17 00:00 98.6 68 19 145/81 97 03/06/17 22:29 98.3 71 18 139/80 98 Room Air 03/06/17 21:30 98.2 03/06/17 20:00 99.8 81 19 160/93 96 I&O Intake and Output 03/07/17 03/08/17 19:00 07:00 Intake Total 455 ml Balance 455 ml IV Total 455 ml Drains: none Cardiovascular: RSR Respiratory: clear Abdomen: soft, non-tender, present bowel sounds Extremities: no edema, pulses Laboratory Tests Test 03/07/17 04:40 03/07/17 04:45 Sodium Level 139 MMOL/L (136-145) Potassium Level 4.1 MMOL/L (3.5-5.1) Chloride Level 107 MMOL/L (98-107) Carbon Dioxide Level 20 MMOL/L (21-32) L Anion Gap 12 mmol/L (5-15) Blood Urea Nitrogen 11 mg/dL (7-18) Creatinine 1.1 MG/DL (0.55-1.30) Estimat Glomerular Filtration Rate mL/min (>60) Glucose Level 83 MG/DL (74-106) Calcium Level 8.4 MG/DL (8.5-10.1) L White Blood Count 6.7 K/UL (4.8-10.8) Red Blood Count 3.39 M/UL (4.20-5.40) L Hemoglobin 10.6 G/DL (12.0-16.0) L Hematocrit 31.5 % (37.0-47.0) L Mean Corpuscular Volume 93 FL (80-99) Mean Corpuscular Hemoglobin 31.3 PG (27.0-31.0) H Mean Corpuscular Hemoglobin Concent 33.6 G/DL (32.0-36.0) Red Cell Distribution Width 13.0 % (11.6-14.8) Platelet Count 273 K/UL (150-450) Mean Platelet Volume 6.6 FL (6.5-10.1) Neutrophils (%) (Auto) 63.7 % (45.0-75.0) Lymphocytes (%) (Auto) 25.0 % (20.0-45.0) Monocytes (%) (Auto) 8.4 % (1.0-10.0) Eosinophils (%) (Auto) 1.4 % (0.0-3.0) Basophils (%) (Auto) 1.4 % (0.0-2.0) Plan Problems: (1) Bright red blood per rectum Assessment & Plan: 86F with BRBPR. likely due to either hemorrhoidal disease vs diverticulitis. likely pronounced and prolonged because of excessive ibuprofen and aspirin ingestion. afebrile, HD stable, VSS, labs reviewed. H/H stable > 24hrs no active bleeding. -no surgical intervention necessary at this time. -appreciate GI input. -advised patient that she needs to be very careful with ASA and Ibuprofen intake. should only be taken as directed. Morgan Jose Mar 07, 2017 16:08
--- NOTE | 2017-03-07 16:32 | Internal Med Progress Note ---
Subjective Date of Service: Mar 07, 2017 Physician Name Robe Pratt Attending Physician Jc June Current Medications Medications (Trade) Dose Ordered Sig/Ann Route PRN Reason Start Time Stop Time Status Last Admin Dose Admin Acetaminophen (Tylenol) 650 mg Q4H PRN ORAL Mild Pain (Pain Scale 1-3) 03/05/17 21:00 04/04/17 20:59 03/07/17 12:53 Dextrose (Dextrose 50%) STAT PRN IV Hypoglycemia 03/05/17 18:15 04/04/17 18:14 Diphenhydramine HCl (Benadryl) 25 mg Q6H PRN ORAL Itching/Pruritis 03/05/17 18:15 04/04/17 18:14 Docusate Sodium (Colace) 100 mg TID ORAL 03/06/17 09:00 04/05/17 08:59 03/07/17 12:52 Hydrocortisone (Anusol HC) 1 applic TWICE A DAY RECTAL 03/05/17 22:00 04/04/17 21:59 03/07/17 09:55 Hydrocortisone (Anusol HC) 1 supp TWICE A DAY RECTAL 03/05/17 22:00 04/04/17 21:59 03/07/17 09:55 Ondansetron HCl (Zofran) 4 mg Q6H PRN IVP Nausea & Vomiting 03/05/17 15:30 04/04/17 15:29 03/06/17 09:23 Pantoprazole (Protonix) 40 mg QHS IV 03/05/17 21:00 04/04/17 20:59 03/06/17 20:38 Polyethylene Glycol (Miralax) 17 gm BEDTIME ORAL 03/05/17 21:00 04/04/17 20:59 03/06/17 20:38 Sodium Chloride 1,000 ml @ 75 mls/hr [id number] IVLG 03/05/17 21:00 04/04/17 20:59 03/07/17 12:52 Zolpidem Tartrate (Ambien) 5 mg HSPRN PRN ORAL Insomnia 03/06/17 01:45 03/13/17 01:44 03/07/17 00:19 Allergies: Coded Allergies: No Known Allergies (Unverified , 03/05/17) Subjective 86 YO F admitted with bright red blood rectal bleed. Cover for Int Med-Dr Arroyo. Objective Last Vital Signs Date Time Temp Pulse Resp B/P (MAP) Pulse Ox O2 Delivery O2 Flow Rate FiO2 03/07/17 12:00 98.3 83 19 139/75 98 Room Air Laboratory Tests Test 03/07/17 04:40 03/07/17 04:45 Sodium Level 139 MMOL/L (136-145) Potassium Level 4.1 MMOL/L (3.5-5.1) Chloride Level 107 MMOL/L (98-107) Carbon Dioxide Level 20 MMOL/L (21-32) L Anion Gap 12 mmol/L (5-15) Blood Urea Nitrogen 11 mg/dL (7-18) Creatinine 1.1 MG/DL (0.55-1.30) Estimat Glomerular Filtration Rate mL/min (>60) Glucose Level 83 MG/DL (74-106) Calcium Level 8.4 MG/DL (8.5-10.1) L White Blood Count 6.7 K/UL (4.8-10.8) Red Blood Count 3.39 M/UL (4.20-5.40) L Hemoglobin 10.6 G/DL (12.0-16.0) L Hematocrit 31.5 % (37.0-47.0) L Mean Corpuscular Volume 93 FL (80-99) Mean Corpuscular Hemoglobin 31.3 PG (27.0-31.0) H Mean Corpuscular Hemoglobin Concent 33.6 G/DL (32.0-36.0) Red Cell Distribution Width 13.0 % (11.6-14.8) Platelet Count 273 K/UL (150-450) Mean Platelet Volume 6.6 FL (6.5-10.1) Neutrophils (%) (Auto) 63.7 % (45.0-75.0) Lymphocytes (%) (Auto) 25.0 % (20.0-45.0) Monocytes (%) (Auto) 8.4 % (1.0-10.0) Eosinophils (%) (Auto) 1.4 % (0.0-3.0) Basophils (%) (Auto) 1.4 % (0.0-2.0) Intake and Output 03/07/17 03/08/17 19:00 07:00 Intake Total 455 ml Balance 455 ml IV Total 455 ml Objective General Appearance: alert, mild distress, thin EENT: PERRL/EOMI, normal ENT inspection, TMs normal Neck: non-tender, normal alignment, supple Cardiovascular: normal peripheral pulses, normal rate, regular rhythm, no gallop/murmur, no JVD Respiratory/Chest: chest wall non-tender, lungs clear, normal breath sounds, no respiratory distress, no accessory muscle use Abdomen: soft, no organomegaly, no mass, decreased bowel sounds, tender Extremities: normal range of motion Neurologic: asic engineer II-XII grossly normal, no motor/sensory deficits Skin: normal pigmentation, warm/dry Assessment/Plan Assessment/Plan ASSESSMENT: 1. Bright red blood per rectum with differential diagnosis of hemorrhoidal bleed versus, thus less likely diverticular bleed. 2. Anemia. 3. Hemorrhoids. 4. History of peptic ulcer disease. 5. History of Helicobacter pylori. 6. Congregation PLAN: 1. Admit the patient to Medical/Surgical. 2. Gastrointestinal consult. 3. Bowel regimen for constipation. 4. Anusol HC b.i.d. 5. PPI. 6. Hold NSAIDs. 7. IV fluids and monitor creatinine closely. 8. Renal consult for renal failure. 9. Monitor hemoglobin closely. 10. DVT prophylaxis none because of gastrointestinal bleed. 11. Full code. ROBE PRATT Mar 07, 2017 16:32
[2017-03-07] MEDS ORDERED: 1/2 NS 1000ml IV ONE (17:20)
[2017-03-07 20:00] VITALS: BP 137/65
[2017-03-07] MEDS: Miralax 17gm pkt ORAL SCH (20:09)
[2017-03-07] MEDS: Pantoprazole Inj IV SCH (20:09)
[2017-03-08] VITALS: BP 128/68
[2017-03-08 04:00] VITALS: BP 144/73
[2017-03-08 08:00] VITALS: BP 140/74
[2017-03-08] MEDS: Docusate 100mg cap ORAL SCH ×3 (08:59→18:00)
[2017-03-08] MEDS: Anusol HC Supp RECTAL SCH ×2 (08:59→18:58)
--- NOTE | 2017-03-08 11:34 | GI Progress Note ---
Assessment/Plan Problems: (1) Ulcer of stomach due to nonsteroidal anti-inflammatory drug (NSAID) in therapeutic use ICD Codes: K25.9 - Gastric ulcer, unspecified as acute or chronic, without hemorrhage or perforation; T39.395A - Adverse effect of other nonsteroidal anti- inflammatory drugs [NSAID], initial encounter SNOMED: 073774615447779 (2) Bright red blood per rectum ICD Codes: K62.5 - Hemorrhage of anus and rectum SNOMED: 296316951 (3) Rectal bleed ICD Codes: K62.5 - Hemorrhage of anus and rectum SNOMED: 77971966 (4) Anemia ICD Codes: D64.9 - Anemia, unspecified SNOMED: 457080560 (5) Bleeding hemorrhoid ICD Codes: K64.9 - Unspecified hemorrhoids SNOMED: 70509800 (6) Constipation ICD Codes: K59.00 - Constipation, unspecified SNOMED: 75766239 (7) Hx of ulcer disease ICD Codes: Z87.898 - Personal history of other specified conditions SNOMED: 971756342 Status: stable Status Narrative Discussed with Dr. Concepcion. Assessment/Plan EGD/colonoscopy records reviewed >> - hx of non bleeding ulcers - HH Assessment - Rectal bleed - ?anorectal vs ?ulcer due to NSAIDS - epigastric pain - constipation - anemia - stable H&H Recommendations - okay for DC per GI standpoint - monitor CBC, prn transfusions - adv diet - bowel regimen - monitor H&H, no transfusions >> patient is a Hoahaoism - fu labs - follow up as outpatient The patient was seen and examined at bedside and all new and available data was reviewed in the patients chart. I agree with the above findings, impression and plan. (Patient seen earlier today. Signature stamp does not reflect patient encounter time.). - Vanessa Concepcion MD Subjective Gastrointestinal/Abdominal: Reports: no symptoms Subjective had bowel movement no recurrent rectal bleed Objective Last 24 Hour Vital Signs Date Time Temp Pulse Resp B/P (MAP) Pulse Ox O2 Delivery O2 Flow Rate FiO2 03/08/17 08:00 98.9 74 17 140/74 98 Room Air 03/08/17 06:30 98.8 03/08/17 04:00 99.6 78 17 144/73 96 Room Air 03/08/17 00:00 98.1 74 18 128/68 99 Room Air 03/07/17 20:00 98.4 75 18 137/65 98 Room Air 03/07/17 16:00 97.7 73 19 122/79 96 Room Air 03/07/17 12:00 98.3 83 19 139/75 98 Room Air Laboratory Tests Test 03/07/17 18:00 Stool Occult Blood Pending Height (Feet): 5 Height (Inches): 2.00 Weight (Pounds): 118 General Appearance: WD/WN, no apparent distress, alert Cardiovascular: normal rate Respiratory/Chest: normal breath sounds, no respiratory distress Abdominal Exam: normal bowel sounds, non tender, soft Extremities: normal range of motion, non-tender Carina Lang N.P. Mar 08, 2017 11:34 LAKHWINDER CONCEPCION Mar 09, 2017 08:32
[2017-03-08 12:00] VITALS: BP 130/71
--- NOTE | 2017-03-08 13:08 | General Surgery Progress Note ---
General Surgery-Progress Note Subjective Symptoms: improved Additional Comments no bleeding. BM without blood. feeling better today Objective Last 24 Hour Vital Signs Date Time Temp Pulse Resp B/P (MAP) Pulse Ox O2 Delivery O2 Flow Rate FiO2 03/08/17 12:00 98.4 64 19 130/71 98 Room Air 03/08/17 08:00 98.9 74 17 140/74 98 Room Air 03/08/17 06:30 98.8 03/08/17 04:00 99.6 78 17 144/73 96 Room Air 03/08/17 00:00 98.1 74 18 128/68 99 Room Air 03/07/17 20:00 98.4 75 18 137/65 98 Room Air 03/07/17 16:00 97.7 73 19 122/79 96 Room Air Drains: none Cardiovascular: RSR Respiratory: clear Abdomen: soft, non-tender, present bowel sounds Extremities: no edema Laboratory Tests Test 03/07/17 18:00 Stool Occult Blood Pending Plan Problems: (1) Bright red blood per rectum Assessment & Plan: 86F with BRBPR. likely due to either hemorrhoidal disease vs diverticulitis. likely pronounced and prolonged because of excessive ibuprofen and aspirin ingestion. afebrile, HD stable, VSS, labs reviewed. H/H stable > 24hrs no active bleeding. -no surgical intervention necessary at this time. -appreciate GI input. -advised patient that she needs to be very careful with ASA and Ibuprofen intake. should only be taken as directed. okay to d/c from surgical standpoint Morgan Jose Mar 08, 2017 13:08
--- NOTE | 2017-03-08 14:09 | Nephrology Progress Note ---
Assessment/Plan Problem List: (1) ARF (acute renal failure) Assessment: better (2) Rectal bleed (3) Anemia Assessment: better Plan Discussed with daughter and surgeon and Dr Cruz Orozco Dc today Subjective Subjective feels ok Objective Objective Last 24 Hour Vital Signs Date Time Temp Pulse Resp B/P (MAP) Pulse Ox O2 Delivery O2 Flow Rate FiO2 03/08/17 12:00 98.4 64 19 130/71 98 Room Air 03/08/17 08:00 98.9 74 17 140/74 98 Room Air 03/08/17 06:30 98.8 03/08/17 04:00 99.6 78 17 144/73 96 Room Air 03/08/17 00:00 98.1 74 18 128/68 99 Room Air 03/07/17 20:00 98.4 75 18 137/65 98 Room Air 03/07/17 16:00 97.7 73 19 122/79 96 Room Air Laboratory Tests 03/07/17 18:00: Stool Occult Blood Negative Height (Feet): 5 Height (Inches): 2.00 Weight (Pounds): 118 Cardiovascular: normal rate Respiratory/Chest: lungs clear Extremities: other - no edema ALFRED ERWIN Mar 08, 2017 14:09
[2017-03-08 16:00] VITALS: BP 114/65
[2017-03-08] MEDS ORDERED: ANUSOL HC1 SUPP RECTAL (18:50)
--- NOTE | 2017-03-08 18:51 | Discharge Instructions ---
Discharge Instructions Discharge Instructions Follow up with: Dr. Concepcion Diet: other - high fiber Resume Normal Activity?: Yes For Congestive Heart Failure Reminder Report to your physician any weight gain of 5 pounds or more in one week. CORRINA CHRISTY M.D. Mar 08, 2017 18:51
[2017-03-08] MEDS ORDERED: MIRALAX17 G2 ORAL (18:53)
--- NOTE | 2017-03-08 18:56 | Discharge Summary ---
Discharge Summary Hospital Course Date of Admission Mar 05, 2017 at 15:38 Date of Discharge Admitting Diagnosis generalized weakness, acute kidney injury HPI José Antonio Pickett is a 86 year old female who was admitted on Mar 05, 2017 at 15: 38 for BRBPR. She was seen by GI and found to likely have hemorrhoidal bleed. Started on Anusol BID and Miralax. No bleeding while in hospital. H/H stable. Stable for discharge by GI. Discharge Condition Upon Discharge: stable Discharge Disposition Patient was discharged to HOME Discharge Diagnoses: Discharge Instructions Discharge Instructions Follow up with: CORRINA St M.D. Mar 08, 2017 18:56
[2017-03-08 20:00] VITALS: BP 123/65
[2017-03-08] MEDS: Pantoprazole Inj IV SCH (20:31)
[2017-03-08] MEDS: Miralax 17gm pkt ORAL SCH (20:31)
--- NOTE | 2017-03-18 15:03 | Discharge Summary ---
Discharge Summary Hospital Course Date of Admission Mar 05, 2017 at 15:38 Date of Discharge Mar 08, 2017 at 21:33 Admitting Diagnosis generalized weakness, acute kidney injury KIMBERLY Pickett is a 86 year old female who was admitted on Mar 05, 2017 at 15: 38 for Generalized Weakness,Acute Kidney Injury Hospital Course addendum: FINAL DIAGNOSIS: 1. Bright red blood per rectum/ Lower GI bleed possibly from hemorrhoidal bleed. 2. Anemia. 3. Hemorrhoids. 4. History of peptic ulcer disease. 5. History of Helicobacter pylori. 6. Yazidism 7. Acute renal failure 8. NSAID nephropathy. --I have been assigned to complete a DC summary on this account, I was not involved with the patient management.--LISANDRO Ruelas. Discharge Discharge Disposition Patient was discharged to Home (01) Discharge Diagnoses: Discharge Instructions Discharge Instructions Follow up with: Dr. Carlene Byrd,Helga Alexandra NP Mar 18, 2017 15:03
== END 2017-03-08 21:33 | disposition home or self-care (01) | DRG 378 ==
LOC: EMR 14:15 → 3E 15:38 → EDBEDREQ 19:05 → EDBEDREQSVC 19:06 → EDBEDREQ 19:06 → 3E 22:01
DX: K92.2 Gastrointestinal hemorrhage, unspecified (principal); N17.9 Acute kidney failure, unspecified; D64.9 Anemia, unspecified; K59.00 Constipation, unspecified; K57.90 Diverticulosis of intestine, part unspecified, without perforation or abscess without bleeding; K64.8 Other hemorrhoids; K25.9 Gastric ulcer, unspecified as acute or chronic, without hemorrhage or perforation; T39.395A Adverse effect of other nonsteroidal anti-inflammatory drugs [NSAID], initial encounter
CPT/HCPCS: 36415; 80048; 80053; 80329; 81003; 82270; 83690; 84484; 85025; 85610; 85730; 86850; 86900; 86901; 93005; 99285; J2405

== ENCOUNTER 2017-07-12 13:06 | Outpatient (CLI) | payer MEDICARE, OTHER ==
[~2017-07-12 13:06] MED LIST: AMBIEN10 M1 ORAL; ANUSOL HC1 SUPP RECTAL; MIRALAX17 G2 ORAL
--- NOTE | 2017-07-12 16:53 | GI Initial Consult Note ---
History of Present Illness General Date patient seen: Jul 12, 2017 Time patient seen: 16:44 Referring physician: YAIMA CHOUDHURY Reason for Consultation: ABDOMINAL PAIN Present Illness HPI Patient is a 86-year-old female with history of gastric ulcers 2/2 to overuse of NSAIDs, rectal bleeding with external hemorrhoids. The patient last EGD/ colonoscopy was performed as an outpatient last year by Dr. Pili Wheat with unremarkable results. She presents today c/o of abdominal pain and severe constipation. The patient had fallen 2 weeks prior, seen at multiple hospitals noted to have a R hip hairline fracture whom is currently taking daily [place] for her pain. Denies any unintentional weight loss or changes in dietary habits. Patient is a fall risk. Home Meds Active Scripts Polyethylene Glycol 3350* (MIRALAX*) 17 Gm Powd.pack, 17 GM ORAL BEDTIME for 30 Days, #30 PACK Prov:CORRINA CHRISTY M.D. 03/08/17 Hydrocortisone (Anucort-Hc) Y Supp, 1 SUPP RECTAL TWICE A DAY for 30 Days, #30 SUPP Prov:CORRINA CHRISTY M.D. 03/08/17 Reported Medications Zolpidem Tartrate* (AMBIEN*) 10 Mg Tablet, 10 MG ORAL HS, TAB 03/05/17 Med list reviewed/reconciled: Yes Allergies: Coded Allergies: No Known Allergies (Unverified , 03/05/17) Patient History PMH Narrative Limited by: language barrier History Provided By: Family Member, Medical Record PMH Narrative Past Medical History: see triage record Reviewed Nursing Documentation: PMH: Agreed, PSxH: Agreed Nursing Documentation-PMH Hx Cardiac Problems: No Hx Hypertension: No Hx Pacemaker: No Hx Asthma: No Hx COPD: No Hx Diabetes: No Hx Cancer: No Hx Gastrointestinal Problems: Yes Hx Dialysis: No - Acute kidney injury History Of Psychiatric Problem: No Hx Neurological Problems: No Hx Cerebrovascular Accident: No Hx Seizures: No Social History: Denies: smoking, alcohol use, drug use, other Pertinent Family History: none Social History: Denies: smoking, alcohol use, drug use, other Review of Systems All Other Systems: negative except mentioned in HPI Physical Exam T 98.3 BP 111/59 P 77 96 RA Sp02 EP Interpretation: reviewed, normal Labs Laboratory Tests Test 4/23/18 16:00 Helicobacter pylori Breath Test Pending General Appearance: well appearing, no apparent distress, alert Head: normocephalic EENT: PERRL/EOMI, normal ENT inspection Neck: supple Respiratory: normal breath sounds, no respiratory distress Cardiovascular: normal rate Gastrointestinal: normal inspection, non tender, soft, normal bowel sounds, non -distended Rectal: deferred Genitourinary: no CVA tenderness Musculoskeletal: normal inspection, back normal Neurologic: normal inspection, alert, oriented x3, responsive Psychiatric: normal inspection, judgement/insight normal, memory normal Skin: normal inspection, normal color, no rash, warm/dry, palpation normal, well hydrated Lymphatic: normal inspection, no adenopathy GI: Plan Problems: (1) Therapeutic opioid-induced constipation (OIC) (2) Anemia (3) Constipation Plan Hx of diverticulitis, H. Pylori Trial period of Movantik rx Dexilant Breath test today RTC x [address] Concepcion. Thank you for this patient referral. Carina Lang N.P. Jul 12, 2017 16:53
== END 2017-07-12 13:40 | disposition home or self-care (01) ==
LOC: PAN 13:06
DX: K59.03 Drug induced constipation (principal); D64.9 Anemia, unspecified; K64.4 Residual hemorrhoidal skin tags; Z91.81 History of falling
CPT/HCPCS: 83013; G0463; 99202

== ENCOUNTER 2017-07-26 12:58 | Outpatient (CLI) | payer MEDICARE, OTHER ==
--- NOTE | 2017-07-26 13:46 | GI Progress Note ---
Assessment/Plan Problems: (1) Anemia ICD Codes: D64.9 - Anemia, unspecified SNOMED: 740330537 (2) Constipation ICD Codes: K59.00 - Constipation, unspecified SNOMED: 59849164 (3) Therapeutic opioid-induced constipation (OIC) ICD Codes: K59.03 - Drug induced constipation; T40.2X5A - Adverse effect of other opioids, initial encounter SNOMED: 013216022350725 Status: stable Status Narrative Discussed with Dr. Concepcion. Assessment/Plan H. Pylori negative Rx [place] 5mg #10 tabs zofran SL prn Rx Movantik RTC x 3 months The patient was seen and examined at bedside and all new and available data was reviewed in the patients chart. I agree with the above findings, impression and plan. (Patient seen earlier today. Signature stamp does not reflect patient encounter time.). - Vanessa Concepcion MD Subjective Subjective constipation better with movantik s/p fall with left facial ecchymosis Objective T 98.6 BP 114/68 P 94 95 RA General Appearance: WD/WN, no apparent distress, alert Cardiovascular: normal rate Respiratory/Chest: normal breath sounds, no respiratory distress Abdominal Exam: normal bowel sounds, non tender, soft Extremities: non-tender Carina Lang N.PKorina July 26, 2017 13:46 LAKHWINDER CONCEPCION July 27, 2017 13:01
== END 2017-07-26 13:28 | disposition home or self-care (01) ==
LOC: PAN 12:58
DX: T40.2X5A Adverse effect of other opioids, initial encounter (principal); X58.XXXA Exposure to other specified factors, initial encounter; K59.00 Constipation, unspecified; D64.9 Anemia, unspecified
CPT/HCPCS: 99212

== ENCOUNTER 2017-09-06 11:58 | Inpatient (IN) | payer MEDICARE, OTHER ==
[~2017-09-06] VITALS: Ht 149.9 cm; Wt 44.7 kg
[2017-09-06] MEDS ORDERED: Isovue-300 100ml vial INJ PRN (12:15)
--- NOTE | 2017-09-06 13:06 | Emergency Room Report ---
History of Present Illness General Chief Complaint: Abdominal Pain Source: Patient Present Illness HPI This patient states that she has a long history of persistent nausea. She also gets epigastric pain. She is followed by Dr. Concepcion in gastroenterology. She has had a pretty thorough workup but has not had an upper endoscopy. She presents today for intractable nausea. The patient is refusing to eat. She is accompanied by her daughter. She denies fever or chills. She denies dysuria or hematuria. She has no other complaints. Allergies: Coded Allergies: No Known Allergies (Unverified , 03/05/17) Patient History Past Medical History: see triage record, renal disease Past Surgical History: other - shoulder surgery Social History: Denies: smoking, alcohol use, drug use Reviewed Nursing Documentation: PMH: Agreed; PSxH: Agreed Nursing Documentation-PMH Past Medical History: No History, Except For Hx Cardiac Problems: No - r hip replacement, r shoulder reduction Hx Hypertension: No Hx Pacemaker: No Hx Asthma: No Hx COPD: No Hx Diabetes: No Hx Cancer: No Hx Gastrointestinal Problems: No Hx Dialysis: No - Acute kidney injury Hx Neurological Problems: No Hx Cerebrovascular Accident: No Hx Seizures: No Review of Systems All Other Systems: negative except mentioned in HPI Physical Exam Vital Signs Date Time Temp Pulse Resp B/P (MAP) Pulse Ox O2 Delivery O2 Flow Rate FiO2 09/06/17 12:14 98.2 85 25 173/79 97 Room Air 98.2 Sp02 EP Interpretation: reviewed, normal General Appearance: no apparent distress, alert, GCS 15, non-toxic Head: normocephalic, atraumatic Eyes: bilateral eye normal inspection, bilateral eye PERRL ENT: hearing grossly normal, normal pharynx, no angioedema, normal voice Neck: full range of motion, supple/symm/no masses Respiratory: chest non-tender, lungs clear, normal breath sounds, speaking full sentences Cardiovascular #1: regular rate, rhythm, no edema Gastrointestinal: normal bowel sounds, soft, non-distended, no guarding, no rebound, tenderness - ttp in the epigastrium Rectal: deferred Musculoskeletal: back normal, gait/station normal, normal range of motion, non- tender Neurologic: alert, oriented x3, responsive, motor strength/tone normal, sensory intact, speech normal Psychiatric: judgement/insight normal, memory normal, mood/affect normal, no suicidal/homicidal ideation Skin: normal color, no rash, warm/dry, well hydrated Medical Decision Making Diagnostic Impression: Primary Impression: Intractable nausea and vomiting Additional Impressions: Gastritis and duodenitis UTI (urinary tract infection) ER Course This patient has a history of persistent nausea. She has epigastric pain. I also did a urinalysis which shows findings consistent with a urinary tract infection. The urinalysis is contaminated. I will have the nurse repeat the urinalysis with a catheter. Regardless, the patient will be admitted for intractable nausea and further evaluation by gastroenterology. I feel that this patient needs upper endoscopy to assess her for peptic ulcer disease/ gastritis. The patient is admitted for further evaluation and treatment. Laboratory Tests Test 09/06/17 13:25 09/06/17 13:40 White Blood Count 7.8 K/UL (4.8-10.8) Red Blood Count 4.01 M/UL (4.20-5.40) L Hemoglobin 11.7 G/DL (12.0-16.0) L Hematocrit 36.3 % (37.0-47.0) L Mean Corpuscular Volume 90 FL (80-99) Mean Corpuscular Hemoglobin 29.3 PG (27.0-31.0) Mean Corpuscular Hemoglobin Concent 32.4 G/DL (32.0-36.0) Red Cell Distribution Width 12.4 % (11.6-14.8) Platelet Count 249 K/UL (150-450) Mean Platelet Volume 6.9 FL (6.5-10.1) Neutrophils (%) (Auto) 63.2 % (45.0-75.0) Lymphocytes (%) (Auto) 20.7 % (20.0-45.0) Monocytes (%) (Auto) 11.3 % (1.0-10.0) H Eosinophils (%) (Auto) 2.8 % (0.0-3.0) Basophils (%) (Auto) 2.0 % (0.0-2.0) Sodium Level 137 MMOL/L (136-145) Potassium Level 4.2 MMOL/L (3.5-5.1) Chloride Level 105 MMOL/L (98-107) Carbon Dioxide Level 22 MMOL/L (21-32) Anion Gap 10 mmol/L (5-15) Blood Urea Nitrogen 8 mg/dL (7-18) Creatinine 1.2 MG/DL (0.55-1.30) Estimate Glomerular Filtration Rate mL/min (>60) Glucose Level 76 MG/DL (74-106) Calcium Level 9.3 MG/DL (8.5-10.1) Total Bilirubin 0.3 MG/DL (0.2-1.0) Aspartate Amino Transferase (AST) 23 U/L (15-37) Alanine Aminotransferase (ALT) 21 U/L (12-78) Alkaline Phosphatase 50 U/L (46-116) Total Protein 7.5 G/DL (6.4-8.2) Albumin 3.6 G/DL (3.4-5.0) Globulin 3.9 g/dL Albumin/Globulin Ratio 0.9 (1.0-2.7) L Lipase 75 U/L (73-393) Urine Color Yellow Urine Appearance Slightly cloudy Urine pH 7 (4.5-8.0) Urine Specific [place] 1.015 (1.005-1.035) Urine Protein 2+ (NEGATIVE) H Urine Glucose (UA) Negative (NEGATIVE) Urine Ketones 3+ (NEGATIVE) H Urine Occult Blood 4+ (NEGATIVE) H Urine Nitrite Negative (NEGATIVE) Urine Bilirubin Negative (NEGATIVE) Urine Urobilinogen Normal MG/DL (0.0-1.0) Urine Leukocyte Esterase 3+ (NEGATIVE) H Urine RBC 5-10 /HPF (0 - 2) H Urine WBC Tntc /HPF (0 - 2) H Urine Squamous Epithelial Cells Many /LPF (NONE/OCC) H Urine Bacteria Many /HPF (NONE) H Last Vital Signs Date Time Temp Pulse Resp B/P (MAP) Pulse Ox O2 Delivery O2 Flow Rate FiO2 09/06/17 12:14 98.2 85 25 173/79 97 Room Air 98.2 Status: improved Disposition: ADMITTED INPATIENT Laura Loza DO Sep 06, 2017 13:06
[2017-09-06 13:28] VITALS: BP 153/72
[2017-09-06 13:43] LABS: EOSINOPHILS % (AUTO) 2.8 % (0.0-3.0); HEMATOCRIT 36.3 % (37.0-47.0); HEMOGLOBIN 11.7 G/DL (12.0-16.0); LYMPHOCYTES % (AUTO) 20.7 % (20.0-45.0); MEAN CORPUSCULAR VOLUME 90 FL (80-99); MONOCYTES % (AUTO) 11.3 % (1.0-10.0); NEUTROPHILS % (AUTO) 63.2 % (45.0-75.0); PLATELET COUNT 249 K/UL (150-450); RED BLOOD COUNT 4.01 M/UL (4.20-5.40); RED CELL DISTRIBUTION WIDTH 12.4 % (11.6-14.8); WHITE BLOOD COUNT 7.8 K/UL (4.8-10.8)
[2017-09-06 14:02] LABS: BILIRUBIN, URINE NEGATIVE (NEGATIVE); COLOR,URINE YELLOW; GLUCOSE, URINE (UA) NEGATIVE (NEGATIVE); KETONES,URINE 3+ (NEGATIVE); LEUKOCYTE ESTERASE ,URINE 3+ (NEGATIVE); NITRITE,URINE NEGATIVE (NEGATIVE); PH,URINE 7 (4.5-8.0); PROTEIN,URINE 2+ (NEGATIVE); UROBILINOGEN,URINE NORMAL MG/DL (0.0-1.0)
[2017-09-06 14:03] LABS: APPEARANCE,URINE SLIGHTLY CLOUDY
[2017-09-06 14:13] LABS: ANION GAP 10 mmol/L (5-15); BLOOD UREA NITROGEN 8 mg/dL (7-18); CALCIUM 9.3 MG/DL (8.5-10.1); CARBON DIOXIDE 22 MMOL/L (21-32); CHLORIDE 105 MMOL/L (98-107); CREATININE 1.2 MG/DL (0.55-1.30); POTASSIUM 4.2 MMOL/L (3.5-5.1); SODIUM 137 MMOL/L (136-145)
[2017-09-06 14:17] LABS: ALANINE AMINOTRANSFERASE 21 U/L (12-78); ALBUMIN 3.6 G/DL (3.4-5.0); ALBUMIN/GLOBULIN RATIO 0.9 (1.0-2.7); ALKALINE PHOSPHATASE 50 U/L (46-116); ASPARTATE AMINO TRANSFERASE 23 U/L (15-37); BILIRUBIN,TOTAL 0.3 MG/DL (0.2-1.0)
[2017-09-06 14:58] VITALS: BP 169/90
[2017-09-06] MEDS: cefTRIAXone 1 GM in NS 55 ML IVPB ONE (15:15)
[2017-09-06 15:30] VITALS: BP 137/72
[2017-09-06] MEDS ORDERED: cefTRIAXone 1 GM in D5W 55 ML IVPB SCH (16:15)
[2017-09-06 16:21] LABS: APPEARANCE,URINE CLEAR; BILIRUBIN, URINE NEGATIVE (NEGATIVE); COLOR,URINE PALE YELLOW; GLUCOSE, URINE (UA) NEGATIVE (NEGATIVE); KETONES,URINE 2+ (NEGATIVE); LEUKOCYTE ESTERASE ,URINE NEGATIVE (NEGATIVE); NITRITE,URINE NEGATIVE (NEGATIVE); PH,URINE 8 (4.5-8.0); PROTEIN,URINE NEGATIVE (NEGATIVE); UROBILINOGEN,URINE NORMAL MG/DL (0.0-1.0)
--- NOTE | 2017-09-06 16:45 | Diagnostic Imaging Report ---
Indication: Abdominal pain Technique: CT of the abdomen and pelvis utilizing automated exposure control with intravenous contrast. Venous scanning performed. Axial, sagittal and coronal reformats presented. CT dose: Total DLP 609.19 mGycm; CTDI vol 13.45 mGy Comparison: None Findings: There is dependent atelectasis in the lung bases. Heart size within normal limits. No pericardial effusion. There is a small hiatal hernia. Hepatic contour is smooth. There is distention of the gallbladder to approximately 4 cm diameter. No appreciable gallbladder wall thickening or pericholecystic inflammatory change. No CT evident gallstones. Slight prominence of the central intrahepatic ducts. Spleen, adrenal glands and pancreas unremarkable. Kidneys enhance symmetrically. No urinary tract stone or hydronephrosis bilaterally. There is thickening of the bladder wall. Limited evaluation of the uterus due to streak artifact from adjacent right hip hardware. The uterus appears atrophic. There is no free intraperitoneal air or fluid. There is colonic diverticulosis without definite evidence to suggest acute diverticulitis. There is no evidence of bowel obstruction. No pathologically enlarged lymphadenopathy. Abdominal aorta normal in caliber with scattered atherosclerotic calcifications. The bones are demineralized. A right hip arthroplasty is noted. There is no evidence of hardware-related complication. There is scoliosis and degenerative change of the spine. No acute osseous abnormality is seen. IMPRESSION: * Thickening of the bladder wall. Correlate with urinalysis to exclude cystitis. * Gallbladder distention without CT evident gallstones or evidence to suggest acute cholecystitis. Consider right upper quadrant ultrasound as clinically indicated. * Diverticulosis without acute diverticulitis. * Small hiatal hernia. Additional findings as above. The CT scanner at [facility] is accredited by the [employer] and the scans are performed using protocols designed to limit radiation exposure to as low as reasonably achievable to attain images of sufficient resolution adequate for diagnostic evaluation.
[2017-09-06] MEDS ORDERED: TAMSULOSIN HCL0.4 MG ORAL (16:50)
[2017-09-06] MEDS ORDERED: NEXIUM20 M1 ORAL (16:50)
[2017-09-06] MEDS ORDERED: Morphine Sulfate 2mg/ml Inj IVP PRN (17:30)
[2017-09-06] MEDS ORDERED: Morphine Sulfate 4mg/ml Inj IVP PRN (17:30)
[2017-09-06 20:09] VITALS: BP 132/73
[2017-09-06] MEDS: Tamsulosin 0.4mg cap ORAL SCH (20:42)
[2017-09-06] MEDS ORDERED: Miralax 17gm pkt ORAL SCH (21:00)
[2017-09-06 23:58] VITALS: BP 135/76
[2017-09-07] MEDS: Zolpidem 5mg tab ORAL PRN (01:14)
[2017-09-07 04:04] VITALS: BP 137/83
[2017-09-07 06:32] LABS: ALANINE AMINOTRANSFERASE 18 U/L (12-78); ALBUMIN 3.1 G/DL (3.4-5.0); ALBUMIN/GLOBULIN RATIO 0.9 (1.0-2.7); ALKALINE PHOSPHATASE 45 U/L (46-116); ANION GAP 15 mmol/L (5-15); ASPARTATE AMINO TRANSFERASE 17 U/L (15-37); BILIRUBIN,TOTAL 0.4 MG/DL (0.2-1.0); BLOOD UREA NITROGEN 6 mg/dL (7-18); CALCIUM 8.9 MG/DL (8.5-10.1); CARBON DIOXIDE 19 MMOL/L (21-32); CHLORIDE 105 MMOL/L (98-107); POTASSIUM 3.7 MMOL/L (3.5-5.1); SODIUM 139 MMOL/L (136-145)
[2017-09-07 08:00] VITALS: BP 130/66
[2017-09-07] MEDS: Heparin 5000 units/ml inj SUBQ SCH ×2 (08:43→20:41)
[2017-09-07] MEDS: traMADol 50mg tab ORAL PRN ×2 (08:52→21:12)
[2017-09-07 11:50] VITALS: BP 131/69
--- NOTE | 2017-09-07 13:31 | GI Initial Consult Note ---
History of Present Illness General Date patient seen: Sep 07, 2017 Time patient seen: 13:25 Reason for Hospitalization: Abdominal Pain Referring physician: ALFRED ERWIN Reason for Consultation: NAUSEA Present Illness HPI This patient states that she has a long history of persistent nausea. She also gets epigastric pain. She is followed by Dr. Concepcion in gastroenterology. She has had a pretty thorough workup but has not had an upper endoscopy. She presents today for intractable nausea. The patient is refusing to eat. She is accompanied by her daughter. She denies fever or chills. She denies dysuria or hematuria. She has no other complaints. GI consulted for nausea. Pt seen with daughter at beside, awake NAD with no active s/sx of N/V/D. Had complaints of epigastric pain with tenderness. Nausea, without vomiting which has caused her appetite to be decreased. History of gastric ulcers 2/2 to overuse of NSAIDs, rectal bleeding with external hemorrhoids. The patient last EGD/colonoscopy was performed as an outpatient last year by Dr. Pili Wheat with unremarkable results. Breath test for H. Pylori was performed in the clinic, which was negative. Home Meds Active Scripts Polyethylene Glycol 3350* (MIRALAX*) 17 Gm Powd.pack, 17 GM ORAL BEDTIME for 30 Days, #30 PACK Prov:CORRINA CHRISTY M.D. 03/08/17 Hydrocortisone (Anucort-Hc) Y Supp, 1 SUPP RECTAL TWICE A DAY for 30 Days, #30 SUPP Prov:CORRINA CHRISTY M.D. 03/08/17 Reported Medications Esomeprazole Magnesium (NEXIUM) 20 Mg Suspdr.pkt, 20 MG ORAL DAILY, PKT 09/06/17 Tamsulosin Hcl (TAMSULOSIN HCL*) 0.4 Mg Cap.er.24h, 0.4 MG ORAL BEDTIME, CAP 09/06/17 Zolpidem Tartrate* (AMBIEN*) 10 Mg Tablet, 10 MG ORAL HS, TAB 03/05/17 Med list reviewed/reconciled: Yes Allergies: Coded Allergies: No Known Allergies (Unverified , 03/05/17) Patient History Limited by: language barrier History Provided By: Patient, Family Member, Medical Record PMH Narrative Past Medical History: see triage record, renal disease Past Surgical History: other - shoulder surgery Social History: Denies: smoking, alcohol use, drug use Reviewed Nursing Documentation: PMH: Agreed; PSxH: Agreed Nursing Documentation-PMH Past Medical History: No History, Except For Hx Cardiac Problems: No - r hip replacement, r shoulder reduction Hx Hypertension: No Hx Pacemaker: No Hx Asthma: No Hx COPD: No Hx Diabetes: No Hx Cancer: No Hx Gastrointestinal Problems: No Hx Dialysis: No - Acute kidney injury Hx Neurological Problems: No Hx Cerebrovascular Accident: No Hx Seizures: No Social History: Denies: smoking, alcohol use, drug use, other Review of Systems All Other Systems: negative except mentioned in HPI Physical Exam Vital Signs Date Time Temp Pulse Resp B/P (MAP) Pulse Ox O2 Delivery O2 Flow Rate FiO2 09/06/17 12:14 98.2 85 25 173/79 97 Room Air 98.2 Sp02 EP Interpretation: reviewed, normal Labs Laboratory Tests Test 09/06/17 13:40 09/06/17 16:00 09/07/17 05:10 Urine Color Yellow Pale yellow Urine Appearance Slightly cloudy Clear Urine pH 7 (4.5-8.0) 8 (4.5-8.0) Urine Specific [place] 1.015 (1.005-1.035) 1.010 (1.005-1.035) Urine Protein 2+ (NEGATIVE) H Negative (NEGATIVE) Urine Glucose (UA) Negative (NEGATIVE) Negative (NEGATIVE) Urine Ketones 3+ (NEGATIVE) H 2+ (NEGATIVE) H Urine Occult Blood 4+ (NEGATIVE) H 2+ (NEGATIVE) H Urine Nitrite Negative (NEGATIVE) Negative (NEGATIVE) Urine Bilirubin Negative (NEGATIVE) Negative (NEGATIVE) Urine Urobilinogen Normal MG/DL (0.0-1.0) Normal MG/DL (0.0-1.0) Urine Leukocyte Esterase 3+ (NEGATIVE) H Negative (NEGATIVE) Urine RBC 5-10 /HPF (0 - 2) H 2-4 /HPF (0 - 2) H Urine WBC Tntc /HPF (0 - 2) H 0-2 /HPF (0 - 2) Urine Squamous Epithelial Cells Many /LPF (NONE/OCC) H Occasional /LPF Urine Bacteria Many /HPF (NONE) H Few /HPF (NONE) Sodium Level 139 MMOL/L (136-145) Potassium Level 3.7 MMOL/L (3.5-5.1) Chloride Level 105 MMOL/L (98-107) Carbon Dioxide Level 19 MMOL/L (21-32) L Anion Gap 15 mmol/L (5-15) Blood Urea Nitrogen 6 mg/dL (7-18) L Creatinine 1.0 MG/DL (0.55-1.30) Estimat Glomerular Filtration Rate mL/min (>60) Glucose Level 70 MG/DL (74-106) L Calcium Level 8.9 MG/DL (8.5-10.1) Total Bilirubin 0.4 MG/DL (0.2-1.0) Aspartate Amino Transf (AST/SGOT) 17 U/L (15-37) Alanine Aminotransferase (ALT/SGPT) 18 U/L (12-78) Alkaline Phosphatase 45 U/L (46-116) L Total Protein 6.7 G/DL (6.4-8.2) Albumin 3.1 G/DL (3.4-5.0) L Globulin 3.6 g/dL Albumin/Globulin Ratio 0.9 (1.0-2.7) L Lipase 86 U/L (73-393) General Appearance: well appearing, no apparent distress, alert, thin Head: normocephalic EENT: PERRL/EOMI, normal ENT inspection Neck: supple Respiratory: normal breath sounds, no respiratory distress Cardiovascular: normal rate Gastrointestinal: normal inspection, non tender, soft, normal bowel sounds, non -distended Rectal: deferred Genitourinary: no CVA tenderness Musculoskeletal: normal inspection, back normal Neurologic: normal inspection, alert, oriented x3, responsive Psychiatric: normal inspection, judgement/insight normal, memory normal Skin: normal inspection, normal color, no rash, warm/dry, palpation normal, well hydrated Lymphatic: normal inspection, no adenopathy Current Medications Current Medications Medications (Trade) Dose Ordered Sig/Ann Route PRN Reason Start Time Stop Time Status Last Admin Dose Admin Acetaminophen (Tylenol) 650 mg Q4H PRN ORAL Temp > 100.5 09/06/17 19:00 10/06/17 17:29 Heparin Sodium (Porcine) (Heparin 5000 units/ml) 5,000 units EVERY 12 HOURS SUBQ 09/07/17 09:00 10/07/17 08:59 09/07/17 08:43 Iopamidol (Isovue-300 100ml) 100 ml NOW PRN INJ Radiology Procedure 09/06/17 12:15 09/08/17 12:14 Morphine Sulfate (Morphine Sulfate) 2 mg Q3H PRN IVP Moderate Pain (Pain Scale 4-6) 09/06/17 17:30 09/13/17 17:29 Morphine Sulfate (Morphine Sulfate) 4 mg Q3H PRN IVP Severe Pain (Pain Scale 7-10) 09/06/17 17:30 09/13/17 17:29 Ondansetron HCl (Zofran) 4 mg Q6H PRN IVP Nausea & Vomiting 09/06/17 18:45 10/06/17 18:44 Polyethylene Glycol (Miralax) 17 gm BEDTIME ORAL 09/06/17 21:00 10/06/17 20:59 09/06/17 20:42 Tamsulosin HCl (Flomax) 0.4 mg BEDTIME ORAL 09/06/17 21:00 10/06/17 20:59 09/06/17 20:42 Tramadol HCl (Ultram) 50 mg Q8H PRN ORAL Mild Pain (1-3) 09/06/17 18:55 09/13/17 18:54 09/07/17 08:52 Zolpidem Tartrate (Ambien) 5 mg HSPRN PRN ORAL Insomnia 09/06/17 17:30 09/13/17 17:29 09/07/17 01:14 GI: Plan Problems: (1) Gastritis (2) Intractable nausea and vomiting (3) Abdominal pain (4) Anemia (5) Constipation (6) Gastritis and duodenitis Plan CT AP reviewed >> * Thickening of the bladder wall. Correlate with urinalysis to exclude cystitis. * Gallbladder distention without CT evident gallstones or evidence to suggest acute cholecystitis. Consider right upper quadrant ultrasound as clinically indicated. * Diverticulosis without acute diverticulitis. * Small hiatal hernia. breath test for H. Pylori >> negative no GI procedures required >> symptomatic treatment / supportive care ok to adv to puree diet zofran prn ppi bowel regime >> colace + miralax megace for appetite stimulant fu labs abx for UTI Discussed with Dr. Concepcion. Thank you for this patient referral, we will follow. The patient was seen and examined at bedside and all new and available data was reviewed in the patients chart. I agree with the above findings, impression and plan. (Patient seen earlier today. Signature stamp does not reflect patient encounter time.). - Sal Concepcion MD The patient was seen and examined at bedside and all new and available data was reviewed in the patients chart. I agree with the above findings, impression and plan. (Patient seen earlier today. Signature stamp does not reflect patient encounter time.). - MD [facility]ious [facility] ST[facility]FF ATTORNEY Sep 07, 2017 13:31
[2017-09-07 15:43] VITALS: BP 134/71
[2017-09-07] MEDS: Prochlorperazine 10mg tab ORAL PRN (17:54)
[2017-09-07] MEDS: Megace 400mg/10ml Susp ORAL SCH (18:54)
[2017-09-07] MEDS: Docusate 100mg cap ORAL SCH (18:54)
[2017-09-07 20:00] VITALS: BP 123/73
--- NOTE | 2017-09-07 20:06 | History & Physical ---
History and Physical History & Physicial HP dictated # [id number] Jc June MD Sep 07, 2017 20:06
[2017-09-07] MEDS: Tamsulosin 0.4mg cap ORAL SCH (20:36)
[2017-09-07] MEDS: Miralax 17gm pkt ORAL SCH (20:36)
--- NOTE | 2017-09-07 22:15 | History and Physical Report ---
DATE OF ADMISSION: 09/06/2017 CHIEF COMPLAINT: Nausea. HISTORY OF PRESENT ILLNESS: This is a very pleasant, 86-year-old female, who came to the emergency room for a week history of nausea, no history of vomiting, also daughter was aware that the patient's legs were getting more swollen. According to the daughter, the patient has had nausea for a week, but even with taking Zofran, symptoms persisted. There was no problem with the bowel movement. The patient was admitted for further workup. The patient apparently had an EGD and colonoscopy by an outside physician and these were reported to be normal. The patient usually follows with Dr. Concepcion for GI. PAST MEDICAL HISTORY: 1. History of peptic ulcer disease. 2. Gastritis. 3. History of H. pylori. 4. Left shoulder reduction. MEDICATIONS: Reviewed in EMR. SOCIAL HISTORY: No history of smoking or alcohol abuse. ALLERGIES: She is somewhat intolerant to Micardis, getting dizzy and lightheaded. REVIEW OF SYSTEMS: As above. PHYSICAL EXAMINATION: GENERAL: The patient is elderly female, in no acute distress. VITAL SIGNS: Blood pressure is 123/65, pulse 73, temperature 98.5, and respirations of 17. HEENT: [place] conjunctivae. Anicteric sclerae. NECK: Supple. LUNGS: Clear to auscultation. HEART: S1 and S2 without murmurs or rubs. ABDOMEN: Soft and nontender. EXTREMITIES: No cyanosis or edema. LABORATORY FINDINGS: CBC shows WBC of 6700, hematocrit is 31.5, hemoglobin is 10.6, and platelets 273,000. Chemistry panel shows a serum sodium of 139, potassium 4.1, chloride 107, CO2 20, BUN is 11, creatinine 1.1, and calcium is 8.4. UA showed only 2 to 4 rbc's per high-power field. The chemistry panel shows serum sodium 139, potassium 3.7, chloride 105, CO2 19, BUN 6, and creatinine 1.0. CBC shows a WBC of 7800, hematocrit is 36.3, hemoglobin is 11.7, and platelets 249,000. ASSESSMENT: This is an 86-year-old female, who was admitted with nausea. He does have history of gastritis and it is possible that symptoms are from her gastritis. PLAN: The patient's Zofran will be continued. The patient will be proton pump inhibitor. She is followed by GI client relationship consultant, Dr. Concepcion. Additional medication will be given if the nausea persists such as Reglan or Compazine. Jc June M.D. DR: GISSELL JOB#: [id number] CC:
[2017-09-08] VITALS: BP 134/64
[2017-09-08] MEDS: Zolpidem 5mg tab ORAL PRN (01:31)
[2017-09-08 06:36] LABS: BASOPHILS % (AUTO) 1.3 % (0.0-2.0); EOSINOPHILS % (AUTO) 3.6 % (0.0-3.0); HEMATOCRIT 31.5 % (37.0-47.0); HEMOGLOBIN 10.6 G/DL (12.0-16.0); LYMPHOCYTES % (AUTO) 28.7 % (20.0-45.0); MEAN CORPUSCULAR VOLUME 90 FL (80-99); MONOCYTES % (AUTO) 8.2 % (1.0-10.0); NEUTROPHILS % (AUTO) 58.2 % (45.0-75.0); PLATELET COUNT 231 K/UL (150-450); RED BLOOD COUNT 3.49 M/UL (4.20-5.40); RED CELL DISTRIBUTION WIDTH 12.1 % (11.6-14.8); WHITE BLOOD COUNT 7.7 K/UL (4.8-10.8)
[2017-09-08 06:54] LABS: ANION GAP 11 mmol/L (5-15); BLOOD UREA NITROGEN 11 mg/dL (7-18); CALCIUM 8.4 MG/DL (8.5-10.1); CARBON DIOXIDE 20 MMOL/L (21-32); CHLORIDE 105 MMOL/L (98-107); POTASSIUM 3.5 MMOL/L (3.5-5.1); SODIUM 136 MMOL/L (136-145)
[2017-09-08 08:13] VITALS: BP 131/75
[2017-09-08] MEDS: Docusate 100mg cap ORAL SCH ×3 (09:04→17:08)
[2017-09-08] MEDS: Heparin 5000 units/ml inj SUBQ SCH ×2 (09:05→20:13)
[2017-09-08] MEDS: Megace 400mg/10ml Susp ORAL SCH ×2 (09:28→17:08)
[2017-09-08] MEDS: Ciprofloxacin 500mg tab ORAL SCH ×2 (10:30→17:08)
--- NOTE | 2017-09-08 10:40 | GI Progress Note ---
Assessment/Plan Problems: (1) Anemia ICD Codes: D64.9 - Anemia, unspecified SNOMED: 352717602 (2) Constipation ICD Codes: K59.00 - Constipation, unspecified SNOMED: 04877175 (3) Intractable nausea and vomiting ICD Codes: R11.2 - Nausea with vomiting, unspecified SNOMED: 174818991 (4) Abdominal pain ICD Codes: R10.9 - Unspecified abdominal pain SNOMED: 24451017 Status: stable Status Narrative Discussed with Dr. Concepcion. Assessment/Plan CT AP reviewed >> * Thickening of the bladder wall. Correlate with urinalysis to exclude cystitis. * Gallbladder distention without CT evident gallstones or evidence to suggest acute cholecystitis. Consider right upper quadrant ultrasound as clinically indicated. * Diverticulosis without acute diverticulitis. * Small hiatal hernia. breath test for H. Pylori >> negative no GI procedures required >> symptomatic treatment / supportive care ok to adv to puree diet zofran prn, compazine for persistent nausea or vomiting ppi bowel regime >> colace + miralax megace for appetite stimulant fu labs abx for UTI PT evaluation okay for DC per GI standpoint Subjective Gastrointestinal/Abdominal: Reports: no symptoms Subjective nausea improved Objective Last 24 Hour Vital Signs Date Time Temp Pulse Resp B/P (MAP) Pulse Ox O2 Delivery O2 Flow Rate FiO2 09/08/17 08:13 98.2 94 18 131/75 97 Room Air 98.2 09/08/17 00:33 98.6 09/08/17 00:00 98.4 76 16 134/64 96 98.4 09/07/17 20:00 98.6 74 16 123/73 96 98.6 09/07/17 15:43 98.7 71 18 134/71 96 98.7 09/07/17 11:50 98.8 86 17 131/69 95 98.8 Intake and Output 09/07/17 09/08/17 19:00 07:00 Intake Total 600 ml 120 ml Balance 600 ml 120 ml Intake Oral 600 ml 120 ml # Voids 2 1 Laboratory Tests Test 09/08/17 05:35 White Blood Count 7.7 K/UL (4.8-10.8) Red Blood Count 3.49 M/UL (4.20-5.40) L Hemoglobin 10.6 G/DL (12.0-16.0) L Hematocrit 31.5 % (37.0-47.0) L Mean Corpuscular Volume 90 FL (80-99) Mean Corpuscular Hemoglobin 30.5 PG (27.0-31.0) Mean Corpuscular Hemoglobin Concent 33.8 G/DL (32.0-36.0) Red Cell Distribution Width 12.1 % (11.6-14.8) Platelet Count 231 K/UL (150-450) Mean Platelet Volume 8.0 FL (6.5-10.1) Neutrophils (%) (Auto) 58.2 % (45.0-75.0) Lymphocytes (%) (Auto) 28.7 % (20.0-45.0) Monocytes (%) (Auto) 8.2 % (1.0-10.0) Eosinophils (%) (Auto) 3.6 % (0.0-3.0) H Basophils (%) (Auto) 1.3 % (0.0-2.0) Sodium Level 136 MMOL/L (136-145) Potassium Level 3.5 MMOL/L (3.5-5.1) Chloride Level 105 MMOL/L (98-107) Carbon Dioxide Level 20 MMOL/L (21-32) L Anion Gap 11 mmol/L (5-15) Blood Urea Nitrogen 11 mg/dL (7-18) Creatinine 1.0 MG/DL (0.55-1.30) Estimat Glomerular Filtration Rate mL/min (>60) Glucose Level 90 MG/DL (74-106) Calcium Level 8.4 MG/DL (8.5-10.1) L Height (Feet): 4 Height (Inches): 11.00 Weight (Pounds): 103 General Appearance: WD/WN, no apparent distress, alert, thin Cardiovascular: normal rate Respiratory/Chest: normal breath sounds, no respiratory distress Abdominal Exam: normal bowel sounds, non tender, soft Extremities: normal range of motion, non-tender Pablito Lang NP Sep 08, 2017 10:40
[2017-09-08 11:58] VITALS: BP 107/57
[2017-09-08 16:00] VITALS: BP 117/64
[2017-09-08 20:00] VITALS: BP 100/55
--- NOTE | 2017-09-08 20:07 | General Progress Note ---
Assessment/Plan Problem List: (1) Urinary tract infection due to extended-spectrum beta lactamase (ESBL) producing Escherichia coli ICD Codes: N39.0 - Urinary tract infection, site not specified; B96.29 - Other Escherichia coli [E. coli] as the cause of diseases classified elsewhere; Z16.12 - Extended spectrum beta lactamase (ESBL) resistance SNOMED: 736439490, 594973991 (2) Nausea ICD Codes: R11.0 - Nausea SNOMED: 284299512 Assessment/Plan Dc cipro start Zosyn Discussed with daughter Subjective Allergies: Coded Allergies: No Known Allergies (Unverified , 03/05/17) Subjective feels ok Objective Last 24 Hour Vital Signs Date Time Temp Pulse Resp B/P (MAP) Pulse Ox O2 Delivery O2 Flow Rate FiO2 09/08/17 16:00 97.7 73 18 117/64 98 Room Air 97.7 09/08/17 11:58 98.2 74 18 107/57 96 Room Air 98.2 09/08/17 08:13 98.2 94 18 131/75 97 Room Air 98.2 09/08/17 00:33 98.6 09/08/17 00:00 98.4 76 16 134/64 96 98.4 Intake and Output 09/07/17 09/08/17 19:00 07:00 Intake Total 600 ml 120 ml Balance 600 ml 120 ml Intake Oral 600 ml 120 ml # Voids 2 1 Laboratory Tests 09/08/17 05:35: White Blood Count 7.7, Red Blood Count 3.49L, Hemoglobin 10.6L, Hematocrit 31.5L , Mean Corpuscular Volume 90, Mean Corpuscular Hemoglobin 30.5, Mean Corpuscular Hemoglobin Concent 33.8, Red Cell Distribution Width 12.1, Platelet Count 231, Mean Platelet Volume 8.0, Neutrophils (%) (Auto) 58.2, Lymphocytes (% ) (Auto) 28.7, Monocytes (%) (Auto) 8.2, Eosinophils (%) (Auto) 3.6H, Basophils (%) (Auto) 1.3, Sodium Level 136, Potassium Level 3.5, Chloride Level 105, Carbon Dioxide Level 20L, Anion Gap 11, Blood Urea Nitrogen 11, Creatinine 1.0, Estimat Glomerular Filtration Rate , Glucose Level 90, Calcium Level 8.4L Height (Feet): 4 Height (Inches): 11.00 Weight (Pounds): 103 Cardiovascular: normal rate Respiratory/Chest: lungs clear Jc June MD Sep 08, 2017 20:07
[2017-09-08] MEDS: Miralax 17gm pkt ORAL SCH (20:12)
[2017-09-08] MEDS: Tamsulosin 0.4mg cap ORAL SCH (20:12)
[2017-09-08] MEDS: Piperacillin/Tazobactam 3.375 GM in D5W 110 ML IVPB SCH (21:45)
[2017-09-08] MEDS: traMADol 50mg tab ORAL PRN (23:05)
[2017-09-08 23:49] VITALS: BP 113/63
[2017-09-09] MEDS: Zolpidem 5mg tab ORAL PRN (02:08)
[2017-09-09 04:47] VITALS: BP 119/60
[2017-09-09] MEDS: Piperacillin/Tazobactam 3.375 GM in D5W 110 ML IVPB SCH ×2 (05:58→14:00)
[2017-09-09 06:49] LABS: BASOPHILS % (AUTO) 1.2 % (0.0-2.0); EOSINOPHILS % (AUTO) 2.4 % (0.0-3.0); HEMATOCRIT 33.4 % (37.0-47.0); HEMOGLOBIN 11.3 G/DL (12.0-16.0); LYMPHOCYTES % (AUTO) 30.7 % (20.0-45.0); MEAN CORPUSCULAR VOLUME 90 FL (80-99); MONOCYTES % (AUTO) 8.8 % (1.0-10.0); NEUTROPHILS % (AUTO) 56.9 % (45.0-75.0); PLATELET COUNT 235 K/UL (150-450); RED BLOOD COUNT 3.73 M/UL (4.20-5.40); RED CELL DISTRIBUTION WIDTH 12.2 % (11.6-14.8); WHITE BLOOD COUNT 7.3 K/UL (4.8-10.8)
[2017-09-09 07:20] LABS: ANION GAP 13 mmol/L (5-15); BLOOD UREA NITROGEN 13 mg/dL (7-18); CALCIUM 8.8 MG/DL (8.5-10.1); CARBON DIOXIDE 19 MMOL/L (21-32); CHLORIDE 106 MMOL/L (98-107); CREATININE 1.2 MG/DL (0.55-1.30); POTASSIUM 3.8 MMOL/L (3.5-5.1); SODIUM 138 MMOL/L (136-145)
[2017-09-09 08:00] VITALS: BP 115/65
[2017-09-09] MEDS: Docusate 100mg cap ORAL SCH ×2 (08:40→13:00)
[2017-09-09] MEDS: Megace 400mg/10ml Susp ORAL SCH (08:40)
[2017-09-09] MEDS: Heparin 5000 units/ml inj SUBQ SCH (08:43)
--- NOTE | 2017-09-09 10:29 | GI Progress Note ---
Assessment/Plan Problems: (1) Anemia ICD Codes: D64.9 - Anemia, unspecified SNOMED: 771538202 (2) Constipation ICD Codes: K59.00 - Constipation, unspecified SNOMED: 98001569 (3) Intractable nausea and vomiting ICD Codes: R11.2 - Nausea with vomiting, unspecified SNOMED: 802338040 (4) Abdominal pain ICD Codes: R10.9 - Unspecified abdominal pain SNOMED: 15363843 Status: stable, progressing Status Narrative Discussed with Dr. Concepcion. Assessment/Plan CT AP reviewed >> * Thickening of the bladder wall. Correlate with urinalysis to exclude cystitis. * Gallbladder distention without CT evident gallstones or evidence to suggest acute cholecystitis. Consider right upper quadrant ultrasound as clinically indicated. * Diverticulosis without acute diverticulitis. * Small hiatal hernia. breath test for H. Pylori >> negative no GI procedures required >> symptomatic treatment / supportive care ok to adv to puree diet zofran prn, compazine for persistent nausea or vomiting ppi bowel regime >> colace + miralax, dulcolax x 1 megace for appetite stimulant fu labs abx for UTI PT evaluation okay for DC per GI standpoint Subjective Subjective nausea improved Objective Last 24 Hour Vital Signs Date Time Temp Pulse Resp B/P (MAP) Pulse Ox O2 Delivery O2 Flow Rate FiO2 09/09/17 08:00 97.8 70 19 115/65 97 97.8 09/09/17 08:00 Room Air 09/09/17 04:47 98.2 66 24 119/60 98 98.2 09/08/17 23:49 98.4 72 24 113/63 96 98.4 09/08/17 20:00 98.4 82 22 100/55 97 98.4 09/08/17 20:00 98.4 82 22 100/55 97 Room Air 98.4 09/08/17 16:00 97.7 73 18 117/64 98 Room Air 97.7 09/08/17 11:58 98.2 74 18 107/57 96 Room Air 98.2 Intake and Output 09/08/17 09/09/17 19:00 07:00 Intake Total 500 ml 110.0 ml Balance 500 ml 110.0 ml Intake Oral 500 ml IV Total 110.0 ml # Voids 4 2 Laboratory Tests Test 09/09/17 04:55 White Blood Count 7.3 K/UL (4.8-10.8) Red Blood Count 3.73 M/UL (4.20-5.40) L Hemoglobin 11.3 G/DL (12.0-16.0) L Hematocrit 33.4 % (37.0-47.0) L Mean Corpuscular Volume 90 FL (80-99) Mean Corpuscular Hemoglobin 30.4 PG (27.0-31.0) Mean Corpuscular Hemoglobin Concent 33.9 G/DL (32.0-36.0) Red Cell Distribution Width 12.2 % (11.6-14.8) Platelet Count 235 K/UL (150-450) Mean Platelet Volume 7.7 FL (6.5-10.1) Neutrophils (%) (Auto) 56.9 % (45.0-75.0) Lymphocytes (%) (Auto) 30.7 % (20.0-45.0) Monocytes (%) (Auto) 8.8 % (1.0-10.0) Eosinophils (%) (Auto) 2.4 % (0.0-3.0) Basophils (%) (Auto) 1.2 % (0.0-2.0) Sodium Level 138 MMOL/L (136-145) Potassium Level 3.8 MMOL/L (3.5-5.1) Chloride Level 106 MMOL/L (98-107) Carbon Dioxide Level 19 MMOL/L (21-32) L Anion Gap 13 mmol/L (5-15) Blood Urea Nitrogen 13 mg/dL (7-18) Creatinine 1.2 MG/DL (0.55-1.30) Estimat Glomerular Filtration Rate mL/min (>60) Glucose Level 82 MG/DL (74-106) Calcium Level 8.8 MG/DL (8.5-10.1) Height (Feet): 4 Height (Inches): 11.00 Weight (Pounds): 98 General Appearance: WD/WN, no apparent distress, alert, thin Cardiovascular: normal rate Respiratory/Chest: normal breath sounds, no respiratory distress Abdominal Exam: normal bowel sounds, non tender, soft Extremities: normal range of motion, non-tender Pablito Lang DEVOPS DEVELOPER Sep 09, 2017 10:29
[2017-09-09] MEDS: Prochlorperazine 10mg tab ORAL PRN (11:12)
[2017-09-09] MEDS ORDERED: Bisacodyl EC 5mg tab ORAL PRN (11:15)
--- NOTE | 2017-09-09 11:54 | General Progress Note ---
Assessment/Plan Problem List: (1) Urinary tract infection due to extended-spectrum beta lactamase (ESBL) producing Escherichia coli ICD Codes: N39.0 - Urinary tract infection, site not specified; B96.29 - Other Escherichia coli [E. coli] as the cause of diseases classified elsewhere; Z16.12 - Extended spectrum beta lactamase (ESBL) resistance SNOMED: 549399558, 144755290 (2) Nausea ICD Codes: R11.0 - Nausea SNOMED: 709950297 Assessment/Plan Discussed with ID switch abxs to Nitrofurantoin Discussed with daughter Subjective Allergies: Coded Allergies: No Known Allergies (Unverified , 03/05/17) Subjective feels ok Objective Last 24 Hour Vital Signs Date Time Temp Pulse Resp B/P (MAP) Pulse Ox O2 Delivery O2 Flow Rate FiO2 09/09/17 08:00 97.8 70 19 115/65 97 97.8 09/09/17 08:00 Room Air 09/09/17 04:47 98.2 66 24 119/60 98 98.2 09/08/17 23:49 98.4 72 24 113/63 96 98.4 09/08/17 20:00 98.4 82 22 100/55 97 98.4 09/08/17 20:00 98.4 82 22 100/55 97 Room Air 98.4 09/08/17 16:00 97.7 73 18 117/64 98 Room Air 97.7 09/08/17 11:58 98.2 74 18 107/57 96 Room Air 98.2 Intake and Output 09/08/17 09/09/17 19:00 07:00 Intake Total 500 ml 110.0 ml Balance 500 ml 110.0 ml Intake Oral 500 ml IV Total 110.0 ml # Voids 4 2 Laboratory Tests 09/09/17 04:55: White Blood Count 7.3, Red Blood Count 3.73L, Hemoglobin 11.3L, Hematocrit 33.4L , Mean Corpuscular Volume 90, Mean Corpuscular Hemoglobin 30.4, Mean Corpuscular Hemoglobin Concent 33.9, Red Cell Distribution Width 12.2, Platelet Count 235, Mean Platelet Volume 7.7, Neutrophils (%) (Auto) 56.9, Lymphocytes (% ) (Auto) 30.7, Monocytes (%) (Auto) 8.8, Eosinophils (%) (Auto) 2.4, Basophils ( %) (Auto) 1.2, Sodium Level 138, Potassium Level 3.8, Chloride Level 106, Carbon Dioxide Level 19L, Anion Gap 13, Blood Urea Nitrogen 13, Creatinine 1.2, Estimat Glomerular Filtration Rate , Glucose Level 82, Calcium Level 8.8 Height (Feet): 4 Height (Inches): 11.00 Weight (Pounds): 98 Cardiovascular: normal rate Respiratory/Chest: lungs clear Edema: no edema noted Generalized Jc June MD Sep 09, 2017 11:54
[2017-09-09] MEDS ORDERED: MACROBID100 MG ORAL (11:59)
[2017-09-09 12:00] VITALS: BP 103/67
--- NOTE | 2017-09-09 18:00 | Consultation ---
DATE OF CONSULTATION: 09/09/2017 INFECTIOUS DISEASE CONSULTATION CONSULTING PHYSICIAN: Derian June M.D. PRIMARY ATTENDING PHYSICIAN: Jc June M.D. REASON FOR CONSULT: Urinary tract infection. HISTORY OF PRESENT ILLNESS: This is an 86-year-old female admitted on 09/06/2017 because of nausea. The patient has a history of gastritis and duodenitis in the past. Also, complaining of swelling of the legs. The patient had pyuria at the time of admission and urine culture grew ESBL E. coli. PAST MEDICAL HISTORY: Significant for right hip replacement, peptic ulcer, and gastritis. MEDICATIONS: Getting Bisacodyl, Zosyn, Protonix, MiraLAX, Megace, Colace, chlorpromazine, heparin, Flomax, tramadol, Zofran, Ambien, and morphine. SOCIAL HISTORY: No history of alcohol, drug abuse, or smoking. . REVIEW OF SYSTEMS: No fever. No chills. No coughing. No vomiting. Nausea improved. No abdominal pain. Swelling of the legs is resolved. PHYSICAL EXAMINATION: VITAL SIGNS: Temperature 97.2, pulse 70, and blood pressure 115/65. GENERAL APPEARANCE: No acute distress. Seems to be thin. HEAD AND NECK: [place] conjunctiva. Poor dentition. HEART: S1 and S2 regular. LUNGS: Clear. ABDOMEN: Soft, flat, and nontender. EXTREMITY: Has no edema. NEUROLOGIC: Awake, alert, and oriented x3. LABORATORY DATA: WBC 7.3, hemoglobin 11.3, hematocrit 33.4, and platelets 231,000. Sodium 138, potassium 3.8, chloride 106, bicarb 19, BUN 13, and creatinine 1.2. Urine culture, ESBL E. coli sensitive to nitrofurantoin. CT scan of the abdomen and pelvis showed cystitis, cholelithiasis, and diverticulosis. IMPRESSION: Escherichia coli urinary tract infection likely with cystitis. The patient has nausea that is improving. History of gastritis and duodenitis. Has cholelithiasis without cholecystitis. Has diverticulosis. RECOMMENDATIONS: We will change antibiotic to nitrofurantoin and discharge to home. At the end of my exam, I thank Dr. Jc June, for involving me in the care of this patient. Case was discussed with primary physician. Derian June M.D. DR: JAGDISH JOB#: [id number] CC:
--- NOTE | 2017-09-10 08:01 | Discharge Summary ---
Discharge Summary Discharge Summary _ DATE OF ADMISSION: [] 09/06/2017 DATE OF DISCHARGE: 09/09/2017 REASON FOR ADMISSION: 86 years old female with past medical history of gastritis, presented with persistent nausea and epigastric pain. Patient follows-up with a GI as outpatient but did not have any upper endoscopy recently. Patient reported not eating well. She denied fever and chills, she denied dysuria and hematuria. Patient was afebrile, no leukocytosis, mild anemia with hemoglobin 11.7 and hematocrit 36.3. Stable renal parameters, electrolytes, liver enzymes. Lipase within normal limits. Urinalysis was consistent with UTI. CTA of the abdomen and pelvis revealed thickening of the bladder wall. Gallbladder distention without evidence of gallstones to suggest acute cholecystitis. Diverticulosis without acute diverticulitis. Small hiatal hernia. Patient admitted with diagnosis of intractable nausea and vomiting, urinary tract infection, gastritis CONSULTANTS: ID specialist Dr. Derian June GI specialist Dr. Concepcion [facility]: Patient was admitted to medical surgical floor. Patient started on IV fluids. GI and ID consults were requested. Antiemetics provided as needed. Patient was started on GI prophylaxis with proton pump inhibitor. Patient with known history of gastritis. Breath test for H. pylori was negative. GI specialist recommended symptomatic treatment and supportive care. Diet was advanced to pured as tolerated with strict aspiration precautions. Megace was added for appetite stimulation. Bowel regimen instituted with Colace and MiraLAX, Dulcolax 1 provided. Patient had bowel movement. Per GI recommendations, no GI procedure was required at this time. Urine culture revealed Escherichia coli ESBL. Infectious disease specialist seen, evaluated and followed the patient, ID specialist recommended to change antibiotic to oral to complete the course of antibiotics at home. Patient was working with physical therapist. Fall precautions maintained. Patient started on Megace for appetite stimulation. Patient tolerated diet, nausea resolved. Patient had bowel movement. Hemoglobin and hematocrit were closely monitored. Hemoglobin and hematocrit remained at the baseline, no trend down. Patient was stable for discharge home with home health services. FINAL DIAGNOSES: E coli ESBL urinary tract infection with cystitis Abdominal pain, likely secondary to UTI and constipation Constipation-resolved Gastritis Intractable nausea vomiting -resolved Anemia DISCHARGE MEDICATIONS: See Medication Reconciliation list. DISCHARGE INSTRUCTIONS: Patient was discharged home with home health services. Follow up with her primary care provider in one week. I have been assigned to dictate discharge summary for this account. I was not involved in the patient's management. Catherine Hines NP Sep 10, 2017 08:01
--- NOTE | 2017-09-10 09:38 | Diagnostic Imaging Report ---
Indication: Urinary tract infection, history of chronic urinary tract infection Technique: Grayscale and duplex images of the kidneys, retroperitoneum, and bladder were obtained. Comparison: . Reference made to prior CT abdomen pelvis dated 09/06/2017 Findings: Right kidney measures 10.9 cm in length. Left kidney measures 8.8 cm in length. Both kidneys demonstrate equivocally slightly increased echogenicity. No hydronephrosis. No focal abnormality. Normal inferior vena cava. Bladder contains debris. Impression: Equivocally slightly increased renal echogenicity, if real could indicate medical renal disease. Negative for hydronephrosis Evidence of debris within the bladder lumen.
== END 2017-09-09 14:05 | disposition home health service (06) | DRG 690 ==
LOC: EMR 14:47 → 4W 14:48 → EDBEDREQ 15:21
DX: N39.0 Urinary tract infection, site not specified (principal); B96.20 Unspecified Escherichia coli [E. coli] as the cause of diseases classified elsewhere; Z16.12 Extended spectrum beta lactamase (ESBL) resistance; R11.2 Nausea with vomiting, unspecified; K59.00 Constipation, unspecified; R10.9 Unspecified abdominal pain; K57.90 Diverticulosis of intestine, part unspecified, without perforation or abscess without bleeding; D64.9 Anemia, unspecified
CPT/HCPCS: 36415; 74177; 76770; 80048; 80053; 81003; 83690; 85025; 87086; 87181; 99285; J2405

== ENCOUNTER 2018-01-03 14:21 | Outpatient (CLI) | payer MEDICARE, OTHER ==
[~2018-01-03 14:21] MED LIST changes: +MACROBID100 MG ORAL; +NEXIUM20 M1 ORAL; +TAMSULOSIN HCL0.4 MG ORAL
[2018-01-03 14:26] VITALS: BP 105/66
[2018-01-03] MEDS ORDERED: TRAMADOL HCL50 MG ORAL (14:52)
[2018-01-03] MEDS ORDERED: MOVANTIK12.5 MG PO (14:52)
[2018-01-03] MEDS ORDERED: NORCO 5-325 TA1 EACH ORAL (14:52)
--- NOTE | 2018-01-03 16:06 | GI Progress Note ---
Assessment/Plan Problems: (1) Abdominal pain ICD Codes: R10.9 - Unspecified abdominal pain SNOMED: 87880066 (2) Gastritis ICD Codes: K29.70 - Gastritis, unspecified, without bleeding SNOMED: 4028820 (3) Anemia ICD Codes: D64.9 - Anemia, unspecified SNOMED: 324446373 (4) Constipation ICD Codes: K59.00 - Constipation, unspecified SNOMED: 93956198 (5) Therapeutic opioid-induced constipation (OIC) ICD Codes: K59.03 - Drug induced constipation; T40.2X5A - Adverse effect of other opioids, initial encounter SNOMED: 765162606933726 Status: stable Status Narrative Seen with Dr. Concepcion. Assessment/Plan Linzess 145mcg Omeprazole 40mg RTC x1 month The patient was seen and examined at bedside and all new and available data was reviewed in the patients chart. I agree with the above findings, impression and plan. (Patient seen earlier today. Signature stamp does not reflect patient encounter time.). - Sal Concepcion MD Subjective Subjective constipation, uses tramadol and norco on movantic recent hip fx Objective T 97 BP 105/66 85 HR 97 RA General Appearance: WD/WN, no apparent distress, alert Cardiovascular: normal rate Respiratory/Chest: normal breath sounds, no respiratory distress Abdominal Exam: normal bowel sounds, non tender, soft Extremities: non-tender, other - WC bound Pablito Lang NP Jan 03, 2018 16:06
== END 2018-01-03 14:51 | disposition home or self-care (01) ==
LOC: PAN 14:21
DX: R10.9 Unspecified abdominal pain (principal); K29.70 Gastritis, unspecified, without bleeding; D64.9 Anemia, unspecified; K59.00 Constipation, unspecified; K59.03 Drug induced constipation; T40.2X5A Adverse effect of other opioids, initial encounter
CPT/HCPCS: 99212

== ENCOUNTER 2018-02-14 14:08 | Outpatient (CLI) | payer MEDICARE, OTHER ==
[~2018-02-14 14:08] MED LIST changes: +MOVANTIK12.5 MG PO; +NORCO 5-325 TA1 EACH ORAL; +TRAMADOL HCL50 MG ORAL
[2018-02-14 14:22] VITALS: BP 96/59
--- NOTE | 2018-02-14 14:55 | GI Progress Note ---
Assessment/Plan Problems: (1) Nausea ICD Codes: R11.0 - Nausea SNOMED: 014747825 (2) Abdominal pain ICD Codes: R10.9 - Unspecified abdominal pain SNOMED: 26240783 (3) Gastritis ICD Codes: K29.70 - Gastritis, unspecified, without bleeding SNOMED: 7004031 (4) Anemia ICD Codes: D64.9 - Anemia, unspecified SNOMED: 312051758 (5) Constipation ICD Codes: K59.00 - Constipation, unspecified SNOMED: 13756424 Status: stable Status Narrative Seen with Dr. Concepcion. Assessment/Plan Cipro 500 mg PO BID Linzess QOD RTC PRN The patient was seen and examined at bedside and all new and available data was reviewed in the patients chart. I agree with the above findings, impression and plan. (Patient seen earlier today. Signature stamp does not reflect patient encounter time.). - Sal Concepcion MD Subjective Subjective Left sided abdominal pain GERD >> taking omeprazole 40mg Constipation >> stool softeners + Linzess 145mcg prn recurrent UTI, abx by PCP Objective Last 24 Hour Vital Signs Date Time Temp Pulse Resp B/P (MAP) Pulse Ox O2 Delivery O2 Flow Rate FiO2 02/14/18 14:22 98.4 83 16 96/59 97 General Appearance: WD/WN, no apparent distress, alert Cardiovascular: normal rate Respiratory/Chest: normal breath sounds, no respiratory distress Abdominal Exam: normal bowel sounds, non tender, soft Extremities: normal range of motion, non-tender Pablito Lang D[employer]ER Feb 14, 2018 14:55
== END 2018-02-14 14:38 | disposition home or self-care (01) ==
LOC: PAN 14:08
DX: R11.0 Nausea (principal); K29.70 Gastritis, unspecified, without bleeding; D64.9 Anemia, unspecified; K59.00 Constipation, unspecified; K21.9 Gastro-esophageal reflux disease without esophagitis
CPT/HCPCS: 99212

== ENCOUNTER 2018-04-18 13:52 | Outpatient (CLI) | payer MEDICARE, OTHER ==
[2018-04-18 14:00] VITALS: BP 106/66
--- NOTE | 2018-04-19 09:45 | GI Progress Note ---
Assessment/Plan Problems: (1) Constipation ICD Codes: K59.00 - Constipation, unspecified SNOMED: 43951294 (2) Anemia ICD Codes: D64.9 - Anemia, unspecified SNOMED: 339739232 (3) Gastritis ICD Codes: K29.70 - Gastritis, unspecified, without bleeding SNOMED: 2550377 (4) Abdominal pain ICD Codes: R10.9 - Unspecified abdominal pain SNOMED: 64974258 (5) Nausea ICD Codes: R11.0 - Nausea SNOMED: 740043796 Status: stable Status Narrative Seen with Dr. Concepcion. Assessment/Plan Continue Movantik Return to clinic in 3 months The patient was seen and examined at bedside and all new and available data was reviewed in the patients chart. I agree with the above findings, impression and plan. (Patient seen earlier today. Signature stamp does not reflect patient encounter time.). - Sal Concepcion MD Subjective Subjective Has abdominal pain when constipated Constipation controlled, stool softeners as needed Overall diet has improved Objective Last 24 Hour Vital Signs Date Time Temp Pulse Resp B/P (MAP) Pulse Ox O2 Delivery O2 Flow Rate FiO2 04/18/18 14:00 98.2 82 106/66 94 General Appearance: WD/WN, no apparent distress, alert Cardiovascular: normal rate Respiratory/Chest: normal breath sounds, no respiratory distress Abdominal Exam: normal bowel sounds, non tender, soft Extremities: non-tender Pablito Lagn NP Apr 19, 2018 09:45
== END 2018-04-18 14:22 | disposition home or self-care (01) ==
LOC: PAN 13:52
DX: K59.00 Constipation, unspecified (principal); D64.9 Anemia, unspecified; K29.70 Gastritis, unspecified, without bleeding; R10.9 Unspecified abdominal pain; R11.0 Nausea
CPT/HCPCS: 99212

== ENCOUNTER 2018-09-29 19:15 | Inpatient (IN) | payer MEDICARE, OTHER ==
[~2018-09-29] VITALS: Ht 157.5 cm; Wt 61.8 kg
[~2018-09-29 19:15] MED LIST changes: +OMEPRAZOLE40 M1 ORAL
--- NOTE | 2018-09-29 19:45 | NUR ---
ED Nurse Note: Patient walked in to ER due to edema on her both feets. Per patient's daughter she gave her Lasix 120mg yesterday and it did not help. Patient presented AAO x3, VSS at this time, anxious, skin ios dry, warm to touch.
--- NOTE | 2018-09-29 20:05 | Emergency Room Report ---
History of Present Illness General Chief Complaint: General Complaint Source: Patient, Family Member Present Illness [facility] This patient is sent in by Dr. June. The patient has a history of previous episode of leg swelling a couple years ago. She presents accompanied by a family member. She does have progressively worsening bilateral lower extremity swelling over the past 3 weeks. She denies chest pain. She states she has had some shortness of breath. She denies fever or chills. She denies nausea or vomiting. She denies recent illness. She did see her primary care physician and had increased her Lasix to 120 mg/day for the past 2 days but has not had any improvement in her swelling. Allergies: Coded Allergies: No Known Allergies (Unverified , 03/05/17) Patient History Past Medical History: see triage record, renal disease, other - anemia Past Surgical History: other - Hip replacement. Social History: Denies: smoking, alcohol use, drug use Last Menstrual Period: na Reviewed Nursing Documentation: PMH: Agreed; PSxH: Agreed Nursing Documentation-PMH Hx Cardiac Problems: No - r hip replacement, r shoulder reduction Hx Hypertension: No Hx Pacemaker: No Hx Asthma: No Hx COPD: No Hx Diabetes: No Hx Cancer: No Hx Gastrointestinal Problems: Yes Hx Dialysis: No - Acute kidney injury Hx Neurological Problems: No Hx Cerebrovascular Accident: No Hx Seizures: No Review of Systems All Other Systems: negative except mentioned in HPI Physical Exam Vital Signs Date Time Temp Pulse Resp B/P (MAP) Pulse Ox O2 Delivery O2 Flow Rate FiO2 09/29/18 19:26 98.8 105 20 85/55 (65) 93 Room Air Sp02 EP Interpretation: reviewed, normal General Appearance: no apparent distress, alert, GCS 15, non-toxic Head: normocephalic, atraumatic Eyes: bilateral eye normal inspection, bilateral eye PERRL ENT: hearing grossly normal, normal pharynx, no angioedema, normal voice Neck: full range of motion, supple/symm/no masses Respiratory: chest non-tender, lungs clear, normal breath sounds, no respiratory distress, no retraction, no accessory muscle use, speaking full sentences Cardiovascular #1: regular rate, rhythm, no edema Gastrointestinal: normal bowel sounds, non tender, soft, non-distended, no guarding, no rebound Rectal: deferred Musculoskeletal: normal range of motion, swelling - 2+bilateral LE edema. Neurologic: alert, oriented x3, responsive, motor strength/tone normal, sensory intact, speech normal Psychiatric: judgement/insight normal, memory normal, mood/affect normal, no suicidal/homicidal ideation Medical Decision Making Diagnostic Impression: Primary Impression: Right-sided heart failure Additional Impressions: ARF (acute renal failure) Swelling of both lower extremities ER Course This patient presents with right-sided heart failure and acute renal failure. Possibly the renal failure secondary to the high doses of diuretics. Regardless , this patient will be admitted for further evaluation and treatment by cardiology and nephrology and internal medicine. Laboratory Tests Test 09/29/18 19:50 09/29/18 20:20 White Blood Count 12.0 K/UL (4.8-10.8) H Red Blood Count 3.62 M/UL (4.20-5.40) L Hemoglobin 9.1 G/DL (12.0-16.0) L Hematocrit 28.9 % (37.0-47.0) L Mean Corpuscular Volume 80 FL (80-99) Mean Corpuscular Hemoglobin 25.1 PG (27.0-31.0) L Mean Corpuscular Hemoglobin Concent 31.5 G/DL (32.0-36.0) L Red Cell Distribution Width 14.2 % (11.6-14.8) Platelet Count 387 K/UL (150-450) Mean Platelet Volume 6.1 FL (6.5-10.1) L Neutrophils (%) (Auto) 73.8 % (45.0-75.0) Lymphocytes (%) (Auto) 17.4 % (20.0-45.0) L Monocytes (%) (Auto) 6.6 % (1.0-10.0) Eosinophils (%) (Auto) 1.1 % (0.0-3.0) Basophils (%) (Auto) 1.2 % (0.0-2.0) Sodium Level 139 MMOL/L (136-145) Potassium Level 3.4 MMOL/L (3.5-5.1) L Chloride Level 97 MMOL/L (98-107) L Carbon Dioxide Level 30 MMOL/L (21-32) Anion Gap 12 mmol/L (5-15) Blood Urea Nitrogen 28 mg/dL (7-18) H Creatinine 2.4 MG/DL (0.55-1.30) H Estimate Glomerular Filtration Rate mL/min (>60) Glucose Level 85 MG/DL (74-106) Calcium Level 9.3 MG/DL (8.5-10.1) Total Bilirubin 0.3 MG/DL (0.2-1.0) Aspartate Amino Transferase (AST) 18 U/L (15-37) Alanine Aminotransferase (ALT) 12 U/L (12-78) Alkaline Phosphatase 55 U/L (46-116) Total Creatine Kinase 245 U/L (26-308) Creatine Kinase MB 0.8 NG/ML (0.0-3.6) Creatine Kinase MB Relative Index 0.3 Troponin I 0.003 ng/mL (0.000-0.056) Total Protein 7.1 G/DL (6.4-8.2) Albumin 3.6 G/DL (3.4-5.0) Globulin 3.5 g/dL Albumin/Globulin Ratio 1.0 (1.0-2.7) Urine Color Pale yellow Urine Appearance Clear Urine pH 5 (4.5-8.0) Urine Specific Emmett 1.010 (1.005-1.035) Urine Protein Negative (NEGATIVE) Urine Glucose (UA) Negative (NEGATIVE) Urine Ketones Negative (NEGATIVE) Urine Blood Negative (NEGATIVE) Urine Nitrite Negative (NEGATIVE) Urine Bilirubin Negative (NEGATIVE) Urine Urobilinogen Normal MG/DL (0.0-1.0) Urine Leukocyte Esterase 1+ (NEGATIVE) H Urine RBC 2-4 /HPF (0 - 2) H Urine WBC 2-4 /HPF (0 - 2) Urine Squamous Epithelial Cells Few /LPF (NONE/OCC) Urine Bacteria Few /HPF (NONE) EKG Diagnostic Results Rate: tachycardiac Rhythm: other - S.tachycardia ST Segments: no acute changes Rhythm Strip Diag. Results EP Interpretation: yes Rate: 100's Rhythm: no PVC's, no ectopy, other - S.tachycardia Chest X-Ray Diagnostic Results Chest X-Ray Diagnostic Results : Chest X-Ray Ordered: Yes # of Views/Limited/Complete: 1 View Indication: Shortness of Breath EP Interpretation: Yes Interpretation: no consolidation, no effusion, no pneumothorax, no acute cardiopulmonary disease Impression: No acute disease Electronically Signed by: Laura Loza DO Last Vital Signs Date Time Temp Pulse Resp B/P (MAP) Pulse Ox O2 Delivery O2 Flow Rate FiO2 09/29/18 19:26 98.8 105 20 85/55 (65) 93 Room Air Disposition: ADMITTED INPATIENT Condition: Serious Laura Loza DO Sep 29, 2018 20:05
[2018-09-29 20:32] LABS: BASOPHILS % (AUTO) 1.2 % (0.0-2.0); EOSINOPHILS % (AUTO) 1.1 % (0.0-3.0); HEMATOCRIT 28.9 % (37.0-47.0); HEMOGLOBIN 9.1 G/DL (12.0-16.0); LYMPHOCYTES % (AUTO) 17.4 % (20.0-45.0); MEAN CORPUSCULAR VOLUME 80 FL (80-99); MONOCYTES % (AUTO) 6.6 % (1.0-10.0); NEUTROPHILS % (AUTO) 73.8 % (45.0-75.0); PLATELET COUNT 387 K/UL (150-450); RED BLOOD COUNT 3.62 M/UL (4.20-5.40); RED CELL DISTRIBUTION WIDTH 14.2 % (11.6-14.8)
[2018-09-29 20:38] VITALS: BP 85/55
[2018-09-29] MEDS ORDERED: FLOMAX0.4 MG ORAL (20:39)
[2018-09-29] MEDS ORDERED: IBUPROFEN600 MG ORAL (20:39)
[2018-09-29] MEDS ORDERED: MECLIZINE HCL25 MG ORAL (20:39)
[2018-09-29] MEDS ORDERED: ASPIRIN81 MG ORAL (20:39)
[2018-09-29] MEDS ORDERED: ZOFRAN4 M3 ORAL (20:39)
[2018-09-29] MEDS ORDERED: PEPTO-BISMOL262 M1 PO (20:39)
[2018-09-29] MEDS ORDERED: TUMS200 M1 PO (20:39)
[2018-09-29] MEDS ORDERED: ATIVAN1 MG ORAL (20:39)
[2018-09-29] MEDS ORDERED: FUROSEMIDE40 MG ORAL (20:39)
[2018-09-29 20:41] LABS: ANION GAP 12 mmol/L (5-15); BLOOD UREA NITROGEN 28 mg/dL (7-18); CALCIUM 9.3 MG/DL (8.5-10.1); CARBON DIOXIDE 30 MMOL/L (21-32); CHLORIDE 97 MMOL/L (98-107); CREATININE 2.4 MG/DL (0.55-1.30); POTASSIUM 3.4 MMOL/L (3.5-5.1); SODIUM 139 MMOL/L (136-145)
[2018-09-29 20:55] LABS: ALANINE AMINOTRANSFERASE 12 U/L (12-78); ALBUMIN 3.6 G/DL (3.4-5.0); ALKALINE PHOSPHATASE 55 U/L (46-116); ASPARTATE AMINO TRANSFERASE 18 U/L (15-37); BILIRUBIN,TOTAL 0.3 MG/DL (0.2-1.0); CKMB 0.8 NG/ML (0.0-3.6); CREATINE KINASE 245 U/L (26-308)
[2018-09-29 20:59] LABS: APPEARANCE,URINE CLEAR; BILIRUBIN, URINE NEGATIVE (NEGATIVE); COLOR,URINE PALE YELLOW; GLUCOSE, URINE (UA) NEGATIVE (NEGATIVE); KETONES,URINE NEGATIVE (NEGATIVE); LEUKOCYTE ESTERASE ,URINE 1+ (NEGATIVE); NITRITE,URINE NEGATIVE (NEGATIVE); PH,URINE 5 (4.5-8.0); PROTEIN,URINE NEGATIVE (NEGATIVE); UROBILINOGEN,URINE NORMAL MG/DL (0.0-1.0)
[2018-09-29 21:55] VITALS: BP 85/55
--- NOTE | 2018-09-29 21:55 | NUR ---
ED Nurse Note: Patient was admited to Tele due to right heart failure. AAO x4, VSS at this time, skin is dry warm to touch. Patient was transfered to the unit via gurney by ACLS protocol, with all belongings.
--- NOTE | 2018-09-29 22:00 | NUR ---
NURSE NOTES: received pt from ER. pt AOx3, pt being admited for right sided heart failure. BLE swollen. no pain at this time. personal belonging list review and signed placed in chart. falling precaution in place: bed locked and lowest position. bed side rail up x2. call light and personal belonging within reach, will continue to monitor for any change in condition. will call DR. Martinez for admission orders.
[2018-09-29] MEDS ORDERED: Zolpidem 5mg tab ORAL PRN (23:15)
[2018-09-29] MEDS ORDERED: HYDROcodone/Acetamin 5/325 tab ORAL PRN (23:15)
[2018-09-29] MEDS ORDERED: Meclizine 25mg tab ORAL PRN (23:15)
--- NOTE | 2018-09-30 | NUR ---
NURSE NOTES: pt in bed, daughter at bedside. received orders from Dr. June, orders noted and carried out. patient and daughter updated about orders and plan of care for pt. will continue to monitor for any change in condition.
[2018-09-30] MEDS: HYDROcodone/Acetamin 5/325 tab ORAL PRN (03:29)
[2018-09-30 04:00] VITALS: BP 108/55
--- NOTE | 2018-09-30 04:00 | NUR ---
NURSE NOTES: pt sleeping, no change in condition. will continue to monitor for any change in condition.
--- NOTE | 2018-09-30 06:33 | NUR ---
NURSE NOTES: pt remains stable, no acute distress, no change of condition, daughter at bedside. fall precaution in place: bed locked and lowest position, bedside rail x2, call light and personal belongings within reach. all needs met during my shift. will endorse plan of care to incoming nurse.
[2018-09-30 06:39] LABS: BASOPHILS % (AUTO) 0.8 % (0.0-2.0); EOSINOPHILS % (AUTO) 1.8 % (0.0-3.0); HEMATOCRIT 26.5 % (37.0-47.0); HEMOGLOBIN 8.3 G/DL (12.0-16.0); LYMPHOCYTES % (AUTO) 18.6 % (20.0-45.0); MEAN CORPUSCULAR VOLUME 80 FL (80-99); MONOCYTES % (AUTO) 8.5 % (1.0-10.0); NEUTROPHILS % (AUTO) 70.3 % (45.0-75.0); PLATELET COUNT 329 K/UL (150-450); RED CELL DISTRIBUTION WIDTH 15.1 % (11.6-14.8); WHITE BLOOD COUNT 10.1 K/UL (4.8-10.8)
[2018-09-30 07:27] LABS: ANION GAP 11 mmol/L (5-15); BLOOD UREA NITROGEN 28 mg/dL (7-18); CALCIUM 8.7 MG/DL (8.5-10.1); CARBON DIOXIDE 30 MMOL/L (21-32); CHLORIDE 97 MMOL/L (98-107); CREATININE 2.1 MG/DL (0.55-1.30); POTASSIUM 2.9 MMOL/L (3.5-5.1); SODIUM 138 MMOL/L (136-145)
--- NOTE | 2018-09-30 07:35 | NUR ---
HAND-OFF: Report given to LYNNE Perez.
--- NOTE | 2018-09-30 07:36 | NUR ---
NURSE NOTES: Received report from LYNNE Arias. Patient is resting in bed, in stable condition, family at bed side. No rashard and symptoms of acute distress at this time. Breathing is unlabored in room air. Bed is in lowest position with two side rails up, brakes engaged . Call light and bed side table are within reach. Will continue to follow plan of care.
[2018-09-30 08:00] VITALS: BP 96/62
[2018-09-30] MEDS: Aspirin Baby 81mg ORAL SCH (08:29)
[2018-09-30] MEDS: Tamsulosin 0.4mg cap ORAL SCH (08:29)
--- NOTE | 2018-09-30 11:01 | Diagnostic Imaging Report ---
Indication:Elevated Bun and Creatinine. Technique: Grayscale and duplex Doppler imaging of the kidneys performed. Comparison: None Findings: The exam is incomplete and cut short as the patient refused to continue during the middle portion of the study. The right kidney was imaged and measures 8.7 cm in length with no evidence of hydronephrosis, but increased echogenicity of the cortex. The left kidney was not imaged. Bladder is grossly unremarkable. IVC is patent. IMPRESSION: Increased echogenicity of the right renal cortex suggests parenchymal disease. Incomplete study as discussed above.
--- NOTE | 2018-09-30 11:59 | History & Physical ---
History and Physical History & Physicial dictated # [id number] Jc June MD Sep 30, 2018 11:59
[2018-09-30 12:00] VITALS: BP 116/67
--- NOTE | 2018-09-30 12:07 | Diagnostic Imaging Report ---
Indication: Dyspnea Comparison: None A single view chest radiograph was obtained. Findings: Interstitial densities are present within the lungs, nonspecific. Heart size is probably slightly increased. The aorta is calcified and mildly enlarged. Bones are osteopenic. IMPRESSION: Interstitial pulmonary opacities nonspecific
--- NOTE | 2018-09-30 14:25 | NUR ---
CASE MANAGEMENT: INITIAL REVIEW 87 YO F PRESENTED TO OUR ED FROM HOME CC: SWOLLEN ANKLES PMHx: RIGHT HIP REPLACEMENT. RIGHT SHOULDER REDUCTION. SHIMA. SI:RIGHT HEART FAILURE. T 98.8 HR 105 RR 20 B/P 85/55 SATS 93% ON RA WBC 12 K 3.4 CL 97 BUN 28 CR 2.4 IS: IVF @ 50 mL/HR ASA PO QD FLOMAX PO QD ANTIVERT PO PRN ZOFRAN PO Q12H PATIENT ADMITTED TO TELE 09/29/2018 @ 2111 DCP: PATIENT TO BE DISCHARGED TO HOME ONCE MEDICALLY CLEARED. PLAN OF CARE: CARDIO EVAL Addendum: 09/30/18 at 1442 by Amanda Mariee CM INTERQUAL
--- NOTE | 2018-09-30 15:18 | History & Physical ---
History and Physical History & Physicial seen and examined. Full Dictation completed on 1517 hours Roscoe Choudhury MD Sep 30, 2018 15:18
--- NOTE | 2018-09-30 15:55 | Cardiology Report ---
APPROVED REPORT EKG Measurement Heart [id number] Sinus tachycardia with premature atrial complexes Inferior infarct, age undetermined Abnormal ECG
[2018-09-30 16:00] VITALS: BP 103/64
--- NOTE | 2018-09-30 16:15 | History and Physical Report ---
DATE OF ADMISSION: 09/29/2018 CHIEF COMPLAINT: Leg swelling. HISTORY OF PRESENT ILLNESS: This is an 87-year-old Romanian female, who recently started having leg edema. The patient was started on Lasix. The patient came to the emergency room because the daughter was still worried that the patient has edema. In the emergency room, she was found to have also acute renal failure with serum creatinine 2.4, and she was admitted for further care. Note, that the patient has been taking up to 18 tablets of ibuprofen every day according to the daughter who is at bedside. Daughter tells me that the patient has been asking for ibuprofen every couple of hours. In addition, she was taking also tramadol at home for pain. PAST MEDICAL HISTORY: History of hip replacement, history of chronic nausea, and recurrent urinary tract infections. MEDICATIONS: Reviewed in the EMR. SOCIAL HISTORY: No history of smoking or alcohol abuse. The patient lives at home, takes care of her. REVIEW OF SYSTEMS: Noncontributory except nausea. PHYSICAL EXAMINATION: GENERAL: The patient is an elderly female, in no acute distress. VITAL SIGNS: Blood pressure 96/62, pulse 104, and temperature 98.5. HEENT: Somewhat pale conjunctivae. Anicteric sclerae. NECK: Supple. LUNGS: Clear to auscultation. HEART: S1, S2 without murmurs or rubs. ABDOMEN: Soft and nontender. EXTREMITIES: Right lower extremity does not show any edema. The left lower extremity has some trace edema. LABORATORY FINDINGS: Chemistry panel shows serum sodium 138, potassium 2.9, chloride 97, BUN 28, and creatinine 2.1. Calcium is 8.7. Glucose 85. CBC shows WBC of 10,100, hematocrit 26.5, hemoglobin 8.3, and platelets 329,000. UA is benign. ASSESSMENT: This is an 87-year-old female, who is admitted with some leg edema. Actually her edema is much better than when last time I saw in the office. She has only trace on the left lower extremity. She has developed acute renal failure because of combination of diuretic she was taking, also she was taking a large amount of ibuprofen every day. She has also had nausea, which may be related to her medication intake as well, ibuprofen as well as tramadol. She is anemic. Iron deficiency anemia needs to be ruled out as a part of the gastrointestinal bleed or anemia of chronic disease. PLAN: 1. The patient's Lasix was discontinued. 2. I advised the patient not to take anymore ibuprofen in the future. 3. The patient's potassium will be repleted. 4. I will start the patient on gentle hydration. 5. GI and Cardiology consultation will be obtained. 6. Lower extremity ultrasound to rule out DVT. 7. Iron panel will be ordered to rule out iron deficiency. Jc June M.D. DR: JUAN JOB#: [id number] CC:
--- NOTE | 2018-09-30 18:30 | History and Physical Report ---
DATE OF ADMISSION: 09/29/2018 SOURCE OF INFORMATION: The patient and EMR. HISTORY OF PRESENT ILLNESS: The patient is a pleasant 87-year-old, Khmer lady. At the time of evaluation, the patient denies any chest pain or shortness of breath. The patient's daughter at the bedside. The patient reported there has been worsening of the swallowing and swelling of the lower extremities for which she has started taking the Lasix. Prior to that, the patient had reportedly been started taking the nonsteroid [id number] pain medication. With the worsening of the swelling and sensation of shortness of breath, the patient has been evaluated in the emergency room. The patient has remained bedbound secondary to the pain and swelling. At the time of evaluation, the patient denies any chest pain. Denies any fever or chills. Mild shortness of breath. Initial vital signs in the ER shows the low blood pressure of 80, pulse rate of 100 with temperature of 98 degrees. Initial imaging shows interstitial pulmonary opacities. REVIEW OF SYSTEMS: All 14 elements of review of systems reviewed. Pertinent positives and negatives as above. PAST SURGICAL HISTORY: Including appendectomy. HOME MEDICATIONS: Including, but not limited to aspirin, tamsulosin, and zolpidem. PAST MEDICAL HISTORY: Including, but not limited to hypertension, multiple joint osteoarthritis, GERD, urinary problems, nonspecific, and insomnia. SOCIAL HISTORY: The patient lives with her daughter. No prior history of illicit drug abuse, smoking, or alcohol abuse. LABORATORY DATA: Laboratories dated September 29 shows WBC 12, hemoglobin of 9.1, and platelets of 386,000. Troponin x1 negative. Creatinine 2.4 with baseline creatinine of 1.2 in August 2017. IMAGING: Chest x-ray dated September 29 reviewed. Renal ultrasound dated September 29 reviewed. ASSESSMENT: 1. Acute on chronic renal failure. 2. New onset of heart failure (likely diagnosis). 3. Anemia. 4. Hypokalemia. 5. Leukocytosis with no gross evidence of active acute infection. 6. Gastrointestinal and deep venous thrombosis prophylaxis. PLAN OF CARE: Dr. June for Nephrology management. I will order a 2D echo. We will hold on the aggressive diuretic management. Pending the 2D echo, troponin, and cardiac workup. Dear Dr. June, thanks for allowing me to see your patient as an internal medicine provider. Roscoe Choudhury M.D. DR: Mitchell JOB#: [id number] CC: REHANA
[2018-09-30] MEDS ORDERED: FUROSEMIDE20 M1 ORAL (19:12)
--- NOTE | 2018-09-30 19:25 | NUR ---
NURSE NOTES: Received pt and report from LYNNE Luis. Observed pt resting in bed with both eyes open and family member at bedside. CHIEF WARDEN currently taking pt's VS. school lunch monitor is in placed, IV site intact, asymptomatic, and patent. Bed is in the lowest position and locked, call light within reach. No signs and symptoms of acute distress noted at this time. Will continue plan of care.
[2018-09-30 20:00] VITALS: BP 119/77
--- NOTE | 2018-09-30 20:19 | Cardiology Progress Note ---
Assessment/Plan Assessment/Plan [id number] Objective Last 24 Hour Vital Signs Date Time Temp Pulse Resp B/P (MAP) Pulse Ox O2 Delivery O2 Flow Rate FiO2 09/30/18 20:00 98.5 96 18 119/77 (91) 95 09/30/18 16:00 98.4 98 20 103/64 (77) 98 09/30/18 16:00 86 09/30/18 12:01 89 09/30/18 12:00 97.5 90 18 116/67 (83) 93 09/30/18 09:00 Room Air 09/30/18 08:00 104 09/30/18 08:00 98.5 104 18 96/62 (73) 94 09/30/18 04:00 98.9 107 20 108/55 (72) 96 09/30/18 04:00 106 09/30/18 00:00 105 09/29/18 22:37 Room Air 09/29/18 21:55 98.8 20 85/55 93 Room Air 09/29/18 21:55 98.8 20 85/55 93 Room Air 09/29/18 20:38 105 20 Room Air 09/29/18 20:38 98.8 20 85/55 93 Room Air Intake and Output 09/29/18 09/30/18 19:00 07:00 Intake Total 200 ml Balance 200 ml Intake Oral 200 ml # Voids 4 Laboratory Tests Test 09/29/18 20:20 09/30/18 05:05 09/30/18 06:00 Urine Color Pale yellow Urine Appearance Clear Urine pH 5 (4.5-8.0) Urine Specific [place] 1.010 (1.005-1.035) Urine Protein Negative (NEGATIVE) Urine Glucose (UA) Negative (NEGATIVE) Urine Ketones Negative (NEGATIVE) Urine Blood Negative (NEGATIVE) Urine Nitrite Negative (NEGATIVE) Urine Bilirubin Negative (NEGATIVE) Urine Urobilinogen Normal MG/DL (0.0-1.0) Urine Leukocyte Esterase 1+ (NEGATIVE) H Urine RBC 2-4 /HPF (0 - 2) H Urine WBC 2-4 /HPF (0 - 2) Urine Squamous Epithelial Cells Few /LPF (NONE/OCC) Urine Bacteria Few /HPF (NONE) White Blood Count 10.1 K/UL (4.8-10.8) Red Blood Count 3.30 M/UL (4.20-5.40) L Hemoglobin 8.3 G/DL (12.0-16.0) L Hematocrit 26.5 % (37.0-47.0) L Mean Corpuscular Volume 80 FL (80-99) Mean Corpuscular Hemoglobin 25.3 PG (27.0-31.0) L Mean Corpuscular Hemoglobin Concent 31.5 G/DL (32.0-36.0) L Red Cell Distribution Width 15.1 % (11.6-14.8) H Platelet Count 329 K/UL (150-450) Mean Platelet Volume 6.2 FL (6.5-10.1) L Neutrophils (%) (Auto) 70.3 % (45.0-75.0) Lymphocytes (%) (Auto) 18.6 % (20.0-45.0) L Monocytes (%) (Auto) 8.5 % (1.0-10.0) Eosinophils (%) (Auto) 1.8 % (0.0-3.0) Basophils (%) (Auto) 0.8 % (0.0-2.0) Sodium Level 138 MMOL/L (136-145) Potassium Level 2.9 MMOL/L (3.5-5.1) L Chloride Level 97 MMOL/L (98-107) L Carbon Dioxide Level 30 MMOL/L (21-32) Anion Gap 11 mmol/L (5-15) Blood Urea Nitrogen 28 mg/dL (7-18) H Creatinine 2.1 MG/DL (0.55-1.30) H Estimat Glomerular Filtration Rate mL/min (>60) Glucose Level 85 MG/DL (74-106) Calcium Level 8.7 MG/DL (8.5-10.1) Pro-B-Type Natriuretic Peptide 394 pg/mL (0-125) H Forrest Obando MD Sep 30, 2018 20:19
--- NOTE | 2018-09-30 20:53 | General Progress Note ---
Assessment/Plan Assessment/Plan: Assessment - Chronic nausea - ? GERD, ? HP ? gastroparesis, ? Biliary , ? other - Anemia - significant NSAID intake Recommendations - abd ultrasound - Check Fe Panel - Check Stool OB - trial of PPI - agree with d/c NSAID - will consider EGD/colon Thank you Anibal Dash MD Subjective Allergies: Coded Allergies: No Known Allergies (Unverified , 03/05/17) Objective Last 24 Hour Vital Signs Date Time Temp Pulse Resp B/P (MAP) Pulse Ox O2 Delivery O2 Flow Rate FiO2 09/30/18 20:00 98.5 96 18 119/77 (91) 95 09/30/18 16:00 98.4 98 20 103/64 (77) 98 09/30/18 16:00 86 09/30/18 12:01 89 09/30/18 12:00 97.5 90 18 116/67 (83) 93 09/30/18 09:00 Room Air 09/30/18 08:00 104 09/30/18 08:00 98.5 104 18 96/62 (73) 94 09/30/18 04:00 98.9 107 20 108/55 (72) 96 09/30/18 04:00 106 09/30/18 00:00 105 09/29/18 22:37 Room Air 09/29/18 21:55 98.8 20 85/55 93 Room Air 09/29/18 21:55 98.8 20 85/55 93 Room Air Intake and Output 09/29/18 09/30/18 19:00 07:00 Intake Total 200 ml Balance 200 ml Intake Oral 200 ml # Voids 4 Laboratory Tests 09/30/18 05:05: White Blood Count 10.1, Red Blood Count 3.30L, Hemoglobin 8.3L, Hematocrit 26.5L , Mean Corpuscular Volume 80, Mean Corpuscular Hemoglobin 25.3L, Mean Corpuscular Hemoglobin Concent 31.5L, Red Cell Distribution Width 15.1H, Platelet Count 329, Mean Platelet Volume 6.2L, Neutrophils (%) (Auto) 70.3, Lymphocytes (%) (Auto) 18.6L, Monocytes (%) (Auto) 8.5, Eosinophils (%) (Auto) 1.8, Basophils (%) (Auto) 0.8, Sodium Level 138, Potassium Level 2.9L, Chloride Level 97L, Carbon Dioxide Level 30, Anion Gap 11, Blood Urea Nitrogen 28H, Creatinine 2.1H, Estimat Glomerular Filtration Rate , Glucose Level 85, Calcium Level 8.7 09/30/18 06:00: Pro-B-Type Natriuretic Peptide 394H Height (Feet): 5 Weight (Pounds): 140 Anibal Dash MD Sep 30, 2018 20:53
--- NOTE | 2018-09-30 21:00 | NUR ---
NURSE NOTES: Vascular lab called and said abdominal US will be done Wednesday because the order was inputted too late and the US tech was leaving for the day.
--- NOTE | 2018-09-30 22:15 | Consultation ---
DATE OF CONSULTATION: 09/30/2018 CARDIAC CONSULTATION CONSULTING PHYSICIAN: Forrest Obando M.D. REFERRING PHYSICIAN: Jc June M.D. REASON FOR REFERRAL: Swelling. HISTORY OF PRESENT ILLNESS: This is an elderly female who is known to me from one prior evaluation and hospitalization. The patient presents to the hospital here at [facility] because of leg swelling for some time now, although the patient's daughter indicates it has been going on for approximately a week. The patient's daughter feels it is related to medication she has been taking including many pwnf-ogm-[id number] medications including Advil, Motrin, tramadol, Pepto-Bismol, and several other medications. They started her on some antibiotics for some time and they started her on some diuretics and diuretics dose have been increased by the daughter from 40 to 80 and then 120 mg. Overnight however from last night, the swelling has gone away. The patient denies any chest pain. Denies any shortness of breath. Denies any dizziness or lightheadedness. No heart pounding or palpitations. Per daughter, she is ambulatory but only with significant amount of assistance since she is off balance. PAST MEDICAL HISTORY: Positive for history of hip surgery. She has had history of hospitalizations, gastritis, history of ESBL urinary tract infection, cystitis, abdominal pain secondary to UTI, chronic constipation, intractable nausea and vomiting, anemia, H.pylori, renal insufficiency. She previously declined transfusion because of her status and [employer]es. SOCIAL HISTORY: She lives with her daughter. There is no smoking at the present time although she did 30 years ago. She quit many years ago. No drinking alcoholic beverages. REVIEW OF SYSTEMS: GASTROINTESTINAL: Positive for nausea. No vomiting. She has chronic constipation. No bloody or black stools. GENITOURINARY: She denies any burning on urination or blood in the urine. PULMONARY: Denies cough and wheezing. CONSTITUTIONAL: No fevers, may have had some chills. NEUROLOGICAL: Imbalance. PHYSICAL EXAMINATION: GENERAL: Shows to be elderly female, in no respiratory distress. VITAL SIGNS: Blood pressure anywhere between 103/64 to 116/67, temperature 98.2, heart rate of 98. NECK: Supple. No jugular venous distention. No abdominojugular reflux noted. LUNGS: Clear to auscultation and percussion. CARDIAC: Regular rate and rhythm. No heaves, thrills, or gallops noted. ABDOMEN: Soft, nontender. Positive bowel sounds. EXTREMITIES: There is really no significant edema of lower extremities. NEUROLOGICAL: She is awake, alert, responsive. LABORATORY AND DIAGNOSTIC DATA: Telemetry shows sinus rhythm. Her electrocardiogram unfortunately not available at all. Labs include a white count of 10 with hemoglobin 8.3 and platelet count of 329. Sodium is 138, potassium 2.9, chloride 97, bicarbonate 30, BUN 20, creatinine 2.1 and glucose of 85. ProBNP is 394. Troponin less than 0.003. Urinalysis is 1+ leukocyte esterase, 2 to 4 wbc's. IMAGING: She has had a chest x-ray that shows interstitial pulmonary opacification, nonspecific. She has had a renal ultrasound that shows increased echogenicity of the renal cortex suggestive of parenchymal disease. An echocardiogram has not yet been performed. ASSESSMENT AND PLAN: 1. Peripheral edema resolved status post diuretics. 2. Chronic renal insufficiency. 3. History of intractable nausea and vomiting. 4. Anemia. 5. Electrolyte abnormalities. Dr. June, this patient was seen in cardiac consultation. The patient requires an echocardiogram for evaluation of right ventricular and left ventricular systolic function. EKG will be ordered. A set of cardiac enzymes will be repeated in the morning. She does not appear to be any congestive heart failure at the present time and according to her daughter her edema that she has been having for some time is resolved really for the most part. She is getting some intravenous fluids at the present time in conjunction with renal that have worsened. She will be followed depending on the results of the echo. Forrest Obando M.D. DR: Parker JOB#: [id number] CC:
--- NOTE | 2018-09-30 23:00 | Consultation ---
DATE OF CONSULTATION: 09/30/2018 GASTROENTEROLOGY CONSULTATION CONSULTING PHYSICIAN: Anibal Dash M.D. REFERRING PHYSICIAN: Jc June M.D. CHIEF COMPLAINT: I was asked to see this patient by Dr. Jc June for evaluation of anemia and nausea. HISTORY OF PRESENT ILLNESS: The patient is a pleasant 87-year-old Filipino woman, who was brought by her daughter to the hospital due to worsening leg edema. Some of the patient's issues including renal failure and leg edema are being addressed elsewhere. Of note however is that the patient has longstanding history of nausea. She has daily bowel movements, but they are small. She had an endoscopy and a colonoscopy about 3 years ago in [place] and not aware of any significant findings. She does have ongoing nausea, but she denies any reflux-type symptoms. She also denies any abdominal pain. She does take a significant amount of nonsteroidal anti-inflammatory drugs and they declined to her own admission that she could take up to 18 tablets of ibuprofen daily. The patient cannot recall having had any ulcers in the past, but does have long-term nausea. She denies any hematochezia. PAST MEDICAL HISTORY: History of hip replacement, history of nausea, recurrent urinary tract infections. FAMILY HISTORY: Noncontributory. SOCIAL HISTORY: The patient does not smoke or drink alcohol. She lives at home. Her daughter looks after her affairs. MEDICATIONS: See the chart list for details. REVIEW OF SYSTEMS: Otherwise negative. PHYSICAL EXAMINATION: GENERAL: Pleasant, elderly woman, seen with the daughter at bedside. HEENT: Normocephalic and atraumatic. Sclerae anicteric. Oropharynx clear. NECK: Supple. CHEST: Clear to auscultation. CARDIOVASCULAR: Revealed regular rate. ABDOMEN: Soft with good bowel sounds. There is no organomegaly or tenderness. EXTREMITIES: Revealed 2+ edema. NEUROLOGIC: Grossly nonfocal. LABORATORY DATA: Noted. ASSESSMENT: This patient presents as complaining of chronic nausea of unclear etiology. The patient does have anemia and she may require gastrointestinal workup. I will check stool occult blood and iron panel and decide on this. In the meantime, an abdominal ultrasound can be done to rule out diseases of gallbladder. She should also be placed on acid-blockade either with a histamine-2 ariel or with a proton-pump inhibitor to see if her nausea will respond. Obviously, her nonsteroidal anti-inflammatory drugs will have to be held. Should her symptoms persist and the workup above is negative, then a CT scan will be ordered. RECOMMENDATIONS: Per above discussion and per orders written in the chart. Thank you for asking me to participate in the care of this patient. Anibal Dash M.D. DR: Pradip JOB#: [id number] CC: REHANA
[2018-10-01] VITALS (7 sets, daily range): BP systolic 107–133; BP diastolic 62–77
[2018-10-01] MEDS: Zolpidem 5mg tab ORAL PRN ×2 (00:11→23:54)
--- NOTE | 2018-10-01 07:30 | NUR ---
NURSE NOTES: Received pt and report from Cait RN. Alert and oriented and able to follow the comment. Bed in it's lowest position and locked. No c/o pain. No acute distress noted. IV site spontaneously removed from RAC 22G and New IV line made in RFA 22G running with NS 50cc/hr intact and asymptomatic, and patent. Bed is in the lowest position and locked, call light within reach. No signs and symptoms of acute distress noted at this time. Will continue plan of care
[2018-10-01 07:32] LABS: ANION GAP 8 mmol/L (5-15); CALCIUM 9.3 MG/DL (8.5-10.1); CARBON DIOXIDE 29 MMOL/L (21-32); CHLORIDE 105 MMOL/L (98-107); CREATININE 1.6 MG/DL (0.55-1.30); POTASSIUM 3.5 MMOL/L (3.5-5.1); SODIUM 142 MMOL/L (136-145)
[2018-10-01 07:41] LABS: % IRON SATURATION 10 % (15-50); IRON 30 ug/dL (50-175); TOTAL IRON BINDING CAPACITY 294 ug/dL (250-450)
--- NOTE | 2018-10-01 07:56 | NUR ---
HAND-OFF: Report given to LYNNE Westbrook.
[2018-10-01 08:01] LABS: BLOOD UREA NITROGEN 22 mg/dL (7-18)
--- NOTE | 2018-10-01 08:03 | General Progress Note ---
Assessment/Plan Problem List: (1) CHF (congestive heart failure) ICD Codes: I50.9 - Heart failure, unspecified SNOMED: 36727736 (2) Nausea ICD Codes: R11.0 - Nausea SNOMED: 674307062 (3) Abdominal pain ICD Codes: R10.9 - Unspecified abdominal pain SNOMED: 77735358 (4) Anemia ICD Codes: D64.9 - Anemia, unspecified SNOMED: 706322161 (5) Swelling of both lower extremities ICD Codes: M79.89 - Other specified soft tissue disorders SNOMED: 097310894 (6) Urinary tract infection due to extended-spectrum beta lactamase (ESBL) producing Escherichia coli ICD Codes: N39.0 - Urinary tract infection, site not specified; B96.29 - Other Escherichia coli [E. coli] as the cause of diseases classified elsewhere; Z16.12 - Extended spectrum beta lactamase (ESBL) resistance SNOMED: 519900316, 173095658 Assessment/Plan: start IV iron fu stool ob fu abd us fu labs consider CT if [employer] better Subjective ROS Limited/Unobtainable: Yes Allergies: Coded Allergies: No Known Allergies (Unverified , 03/05/17) Subjective had BM no vomiting Objective Last 24 Hour Vital Signs Date Time Temp Pulse Resp B/P (MAP) Pulse Ox O2 Delivery O2 Flow Rate FiO2 10/01/18 04:00 94 10/01/18 04:00 97.5 87 17 124/75 (91) 98 10/01/18 00:00 98.6 92 18 130/72 (91) 97 10/01/18 00:00 95 09/30/18 21:00 Room Air 09/30/18 20:00 98.5 96 18 119/77 (91) 95 09/30/18 16:00 98.4 98 20 103/64 (77) 98 09/30/18 16:00 86 09/30/18 12:01 89 09/30/18 12:00 97.5 90 18 116/67 (83) 93 09/30/18 09:00 Room Air Intake and Output 09/30/18 10/01/18 18:59 06:59 Intake Total 480 ml 600 ml Balance 480 ml 600 ml Intake Oral 480 ml IV Total 600 ml # Voids 4 4 # Bowel Movements 3 2 Laboratory Tests 10/01/18 06:18: Sodium Level 142, Potassium Level 3.5, Chloride Level 105, Carbon Dioxide Level 29, Anion Gap 8, Blood Urea Nitrogen [Pending], Creatinine 1.6H, Estimat Glomerular Filtration Rate , Glucose Level 79, Calcium Level 9.3, Iron Level 30L , Total Iron Binding Capacity 294, Percent Iron Saturation 10L, Unsaturated Iron Binding 264, Vitamin D 25-Hydroxy [Pending], 25-Hydroxy Vitamin D2 [Pending ], 25-Hydroxy Vitamin D3 [Pending] Height (Feet): 5 Weight (Pounds): 140 General Appearance: alert EENT: normal ENT inspection Neck: supple Cardiovascular: normal rate Respiratory/Chest: decreased breath sounds Abdomen: normal bowel sounds, non tender, soft Extremities: non-tender Sal Concepcion MD Oct 01, 2018 08:03
[2018-10-01] MEDS: Tamsulosin 0.4mg cap ORAL SCH (09:11)
[2018-10-01] MEDS: Aspirin Baby 81mg ORAL SCH (09:11)
--- NOTE | 2018-10-01 10:39 | General Progress Note ---
Assessment/Plan Assessment/Plan: S: I am doing better O: seems comfortable, interval improvement of leg edema . Denies SOB, CP PHYSICAL EXAMINATION:HEENT: Somewhat pale conjunctivae. Anicteric sclerae. NECK: Supple.LUNGS: Clear to auscultation. HEART: S1, S2 without murmurs or rubs.ABDOMEN: Soft and nontender. EXTREMITIES: Right lower extremity does not show any edema. The left lower extremity has some trace edema. Medication : reviewed and reconciled in the chart IMAGING: Chest x-ray dated September 29 reviewed. Renal ultrasound dated September 29 reviewed. ASSESSMENT: 1. Acute on chronic renal failure. 2. New onset of heart failure (likely diagnosis). 3. Anemia. 4. Hypokalemia. 5. Leukocytosis with no gross evidence of active acute infection. 6. Gastrointestinal and deep venous thrombosis prophylaxis. Plan: pending Echo, PT is consulted . current mgt Subjective Allergies: Coded Allergies: No Known Allergies (Unverified , 03/05/17) Objective Last 24 Hour Vital Signs Date Time Temp Pulse Resp B/P (MAP) Pulse Ox O2 Delivery O2 Flow Rate FiO2 10/01/18 08:34 Room Air 10/01/18 08:00 97.5 90 18 128/72 (90) 96 10/01/18 04:00 94 10/01/18 04:00 97.5 87 17 124/75 (91) 98 10/01/18 00:00 98.6 92 18 130/72 (91) 97 10/01/18 00:00 95 09/30/18 21:00 Room Air 09/30/18 20:00 98.5 96 18 119/77 (91) 95 09/30/18 16:00 98.4 98 20 103/64 (77) 98 09/30/18 16:00 86 09/30/18 12:01 89 09/30/18 12:00 97.5 90 18 116/67 (83) 93 Intake and Output 09/30/18 10/01/18 18:59 06:59 Intake Total 480 ml 600 ml Balance 480 ml 600 ml Intake Oral 480 ml IV Total 600 ml # Voids 4 4 # Bowel Movements 3 2 Laboratory Tests 10/01/18 06:18: Sodium Level 142, Potassium Level 3.5, Chloride Level 105, Carbon Dioxide Level 29, Anion Gap 8, Blood Urea Nitrogen 22H, Creatinine 1.6H, Estimat Glomerular Filtration Rate , Glucose Level 79, Calcium Level 9.3, Iron Level 30L, Total Iron Binding Capacity 294, Percent Iron Saturation 10L, Unsaturated Iron Binding 264, Vitamin D 25-Hydroxy [Pending], 25-Hydroxy Vitamin D2 [Pending], 25 -Hydroxy Vitamin D3 [Pending] Height (Feet): 5 Weight (Pounds): 140 Roscoe Choudhury MD Oct 01, 2018 10:39
--- NOTE | 2018-10-01 13:52 | Cardiology Progress Note ---
Assessment/Plan Assessment/Plan fluid overload based on hsitory and CXR, at present time stable, echo is pending Subjective Subjective the patient is doing Ok, no dyspnea or cough, her Le edema improved, she has not have BM but wants to have one Objective Last 24 Hour Vital Signs Date Time Temp Pulse Resp B/P (MAP) Pulse Ox O2 Delivery O2 Flow Rate FiO2 10/01/18 12:00 87 10/01/18 11:53 97.2 93 20 133/77 (95) 96 10/01/18 08:34 Room Air 10/01/18 08:00 97.5 90 18 128/72 (90) 96 10/01/18 08:00 90 10/01/18 04:00 94 10/01/18 04:00 97.5 87 17 124/75 (91) 98 10/01/18 00:00 98.6 92 18 130/72 (91) 97 10/01/18 00:00 95 09/30/18 21:00 Room Air 09/30/18 20:00 98.5 96 18 119/77 (91) 95 09/30/18 16:00 98.4 98 20 103/64 (77) 98 09/30/18 16:00 86 General Appearance: no apparent distress EENT: PERRL/EOMI Neck: JVD - elevated Rhythm: NSR Cardiovascular: regular rhythm Respiratory/Chest: crackles/rales Abdomen: distended, tender - in LLQ Extremities: trace edema Intake and Output 09/30/18 10/01/18 19:00 07:00 Intake Total 530 ml 600 ml Balance 530 ml 600 ml Intake Oral 480 ml IV Total 50 ml 600 ml # Voids 4 4 # Bowel Movements 3 2 Laboratory Tests Test 10/01/18 06:18 Sodium Level 142 MMOL/L (136-145) Potassium Level 3.5 MMOL/L (3.5-5.1) Chloride Level 105 MMOL/L (98-107) Carbon Dioxide Level 29 MMOL/L (21-32) Anion Gap 8 mmol/L (5-15) Blood Urea Nitrogen 22 mg/dL (7-18) H Creatinine 1.6 MG/DL (0.55-1.30) H Estimat Glomerular Filtration Rate mL/min (>60) Glucose Level 79 MG/DL (74-106) Calcium Level 9.3 MG/DL (8.5-10.1) Iron Level 30 ug/dL (50-175) L Total Iron Binding Capacity 294 ug/dL (250-450) Percent Iron Saturation 10 % (15-50) L Unsaturated Iron Binding 264 ug/dL (112-346) Vitamin D 25-Hydroxy Pending 25-Hydroxy Vitamin D2 Pending 25-Hydroxy Vitamin D3 Pending Blanca Pizarro MD Oct 01, 2018 13:52
--- NOTE | 2018-10-01 14:35 | NUR ---
NURSE NOTES: Spoke to a critical care technician for 2D Echo, she states that some reason 2D echo was not done yesterday and she is not available to do it today. The 2D echo will be done tomorrow AM. Made Dr. Pizarro aware.
--- NOTE | 2018-10-01 14:40 | NUR ---
PT Note PT gary completed, treatment initiated. Patient c/o nausea; has muscle weakness. She exhibits poor safety awareness and impulsivity, making her at a high risk for falls. Patient needs PT to increase her muscle strength and balance to improve her functional mobility. Addendum: 10/01/18 at 1442 by ELIU PARKS PT Amended: Links added.
--- NOTE | 2018-10-01 17:15 | Consultation ---
DATE OF CONSULTATION: 10/01/2018 CONSULTING PHYSICIAN: Graham Deshpande M.D. REFERRING PHYSICIAN: Roscoe Choudhury M.D. REASON FOR CONSULTATION: Acute kidney injury. HISTORY OF PRESENT ILLNESS: The patient is an 87-year-old female who presented overnight for further evaluation and care of some difficulty swallowing and swelling of her lower extremities. The patient had started taking Lasix. Prior to that, she was taking nonsteroidals over the counter medication with the worsening of the swelling. She has mild shortness of breath, which has since resolved. Her creatinine prior to this was normal, upon admission was 2.1, currently has improved to 1.6 with gentle hydration. PAST MEDICAL HISTORY: 1. Hypertension. 2. Multiple joint osteoarthritis. 3. GERD. 4. Urinary problem. 5. Insomnia. PAST SURGICAL HISTORY: Appendectomy. ALLERGIES: No known drug allergies SOCIAL HISTORY: No tobacco, alcohol, or illicit drug use. REVIEW OF SYSTEMS: NEUROLOGIC: The patient denies headache, change in vision, syncope, or presyncopal episodes. CARDIOVASCULAR: No current chest pain, palpitations, or angina. PULMONARY: Mild shortness of breath. Nonproductive cough. GASTROINTESTINAL/GENITOURINARY: No change in urine or bowel habits. No nausea, vomiting, or diarrhea. ENDOCRINOLOGY: No night sweats, fevers, or chills. LABORATORY DATA: Laboratories dated 09/30/2018, white cell count 10.1, hemoglobin 8.3, and platelet count 329,000. On 10/01/2018, sodium 142, potassium 3.5, and creatinine 1.6. PHYSICAL EXAMINATION: VITAL SIGNS: Blood pressure 128/72, respiratory rate 18, pulse 90, temperature 97.5, and 96% oxygen saturation on room air. GENERAL: The patient is awake, alert, and in no obvious distress. HEENT: Extraocular muscles intact. No lymphadenopathy noted. CARDIOVASCULAR: S1, S2. No rubs or gallops. PULMONARY: Clear to auscultation bilaterally. No rales, rhonchi, or wheezes. ABDOMEN: Nontender. EXTREMITIES: No edema noted. ASSESSMENT AND PLAN: 1. Acute kidney injury at this time is likely secondary to acute tubular necrosis from multiple etiologies from intravascular volume depletion while being on Lasix and NSAIDs. All of which have been discontinued. Gentle hydration initiated and creatinine has improved to 1.6. Renal ultrasound was conducted, which was otherwise negative. At this time, we will avoid any nephrotoxins and conservative renal management. 2. Lower extremity edema, most likely secondary to NSAID use. This has been discontinued. Hold off Lasix. Edema has already improved. 3. Congestive heart failure. Defer management to Cardiology. Graham Deshpande MD DR: TEE JOB#: [id number] CC:
--- NOTE | 2018-10-01 19:28 | NUR ---
HAND-OFF: Report given to Silvia BATISTA. Pt remains stable.
--- NOTE | 2018-10-01 19:57 | NUR ---
NURSE NOTES: Received pt from LYNNE Chaves. Pt awake, alert, and talkative. Daughter at bedside. Bed in lowest position. Call light within reach. Will continue to monitor.
[2018-10-01] MEDS: Iron Sucrose 100 MG in NS 55 ML IV SCH (21:38)
[2018-10-02] MEDS: Zolpidem 5mg tab ORAL PRN (01:03)
[2018-10-02 04:00] VITALS: BP 164/90
--- NOTE | 2018-10-02 06:57 | NUR ---
HAND-OFF: Report given to LYNNE Chaves. Pt stable.
--- NOTE | 2018-10-02 07:00 | NUR ---
NURSE NOTES: Report received from Silvia BATISTA. Pt in bed asleep but arousable.. No signs of distress noted. IV site in right FA with 22G running with NS @50ml/hr intact and symptomatic. call light within easy reach. No c/o pain. Her daughter is present at the bedside. Stool OB not collected yet. Will continue to plan of care.
--- NOTE | 2018-10-02 07:52 | General Progress Note ---
Assessment/Plan Problem List: (1) CHF (congestive heart failure) ICD Codes: I50.9 - Heart failure, unspecified SNOMED: 97754282 (2) Nausea ICD Codes: R11.0 - Nausea SNOMED: 713145121 (3) Abdominal pain ICD Codes: R10.9 - Unspecified abdominal pain SNOMED: 54409322 (4) Anemia ICD Codes: D64.9 - Anemia, unspecified SNOMED: 275937580 (5) Swelling of both lower extremities ICD Codes: M79.89 - Other specified soft tissue disorders SNOMED: 217304970 (6) Urinary tract infection due to extended-spectrum beta lactamase (ESBL) producing Escherichia coli ICD Codes: N39.0 - Urinary tract infection, site not specified; B96.29 - Other Escherichia coli [E. coli] as the cause of diseases classified elsewhere; Z16.12 - Extended spectrum beta lactamase (ESBL) resistance SNOMED: 452935259, 911257411 Assessment/Plan: IV iron fu stool ob fu abd us fu labs consider CT if Commercial [employer] better add colace and miralax Subjective ROS Limited/Unobtainable: Yes Allergies: Coded Allergies: No Known Allergies (Unverified , 03/05/17) Subjective had BM no vomiting Objective Last 24 Hour Vital Signs Date Time Temp Pulse Resp B/P (MAP) Pulse Ox O2 Delivery O2 Flow Rate FiO2 10/02/18 04:00 104 10/02/18 04:00 103 18 164/90 (114) 97 10/02/18 00:00 84 10/01/18 23:55 99.1 87 18 133/69 (90) 97 10/01/18 21:00 Room Air 10/01/18 20:00 83 10/01/18 20:00 98.8 85 18 119/74 (89) 95 10/01/18 16:00 88 10/01/18 16:00 98.6 92 18 107/62 (77) 97 10/01/18 12:00 87 10/01/18 11:53 97.2 93 20 133/77 (95) 96 10/01/18 08:34 Room Air 10/01/18 08:00 97.5 90 18 128/72 (90) 96 10/01/18 08:00 90 Intake and Output 10/01/18 10/02/18 19:00 07:00 Intake Total 860 ml Output Total 650 ml Balance 210 ml Intake Oral 360 ml IV Total 500 ml Output Urine Total 650 ml # Voids 4 Height (Feet): 5 Weight (Pounds): 140 General Appearance: alert EENT: normal ENT inspection Neck: supple Cardiovascular: normal rate Respiratory/Chest: decreased breath sounds Abdomen: normal bowel sounds, non tender, soft Extremities: non-tender Sal Concepcion MD Oct 02, 2018 07:52
[2018-10-02 08:00] VITALS: BP 162/79
--- NOTE | 2018-10-02 08:20 | Nephrology Progress Note ---
Assessment/Plan Assessment/Plan: 1. SHIMA- secondary to ATN from multiple etiologies from intravascular volume depletion while being on Lasix and NSAIDs. All of which have been discontinued. - Renal US negative - avoid any nephrotoxins and conservative renal management. - AM labs pending 2. Lower extremity edema, most likely secondary to NSAID use. This has been discontinued. Hold off Lasix. Edema has already improved. 3. Congestive heart failure. Defer management to Cardiology. Subjective Date patient seen: Oct 02, 2018 Time patient seen: 08:16 ROS Limited/Unobtainable: No Allergies: Coded Allergies: No Known Allergies (Unverified , 03/05/17) Subjective Patient resting comfortably with family at bedside Objective Last 24 Hour Vital Signs Date Time Temp Pulse Resp B/P (MAP) Pulse Ox O2 Delivery O2 Flow Rate FiO2 10/02/18 08:00 98.2 94 20 162/79 (106) 96 10/02/18 04:00 104 10/02/18 04:00 103 18 164/90 (114) 97 10/02/18 00:00 84 10/01/18 23:55 99.1 87 18 133/69 (90) 97 10/01/18 21:00 Room Air 10/01/18 20:00 83 10/01/18 20:00 98.8 85 18 119/74 (89) 95 10/01/18 16:00 88 10/01/18 16:00 98.6 92 18 107/62 (77) 97 10/01/18 12:00 87 10/01/18 11:53 97.2 93 20 133/77 (95) 96 10/01/18 08:34 Room Air Intake and Output 10/01/18 10/02/18 18:59 06:59 Intake Total 860 ml 50 ml Output Total 650 ml Balance 210 ml 50 ml Intake Oral 360 ml IV Total 500 ml 50 ml Output Urine Total 650 ml # Voids 4 Height (Feet): 5 Weight (Pounds): 140 General Appearance: no apparent distress EENT: normal ENT inspection Neck: normal alignment, supple Cardiovascular: normal rate, regular rhythm Respiratory/Chest: lungs clear, normal breath sounds Abdomen: non tender, soft Edema: no edema noted Arm (L), no edema noted Arm (R), no edema noted Leg (L), no edema noted Leg (R), no edema noted Pedal (L), no edema noted Pedal (R), no edema noted Generalized Graham Deshpande MD Oct 02, 2018 08:20
[2018-10-02] MEDS: Docusate 100mg cap ORAL SCH ×2 (08:56→18:29)
[2018-10-02] MEDS: Aspirin Baby 81mg ORAL SCH (08:56)
[2018-10-02] MEDS: Tamsulosin 0.4mg cap ORAL SCH (08:56)
[2018-10-02 09:48] LABS: EOSINOPHILS % (AUTO) 1.9 % (0.0-3.0); HEMATOCRIT 26.9 % (37.0-47.0); HEMOGLOBIN 8.4 G/DL (12.0-16.0); LYMPHOCYTES % (AUTO) 18.6 % (20.0-45.0); MEAN CORPUSCULAR VOLUME 81 FL (80-99); MONOCYTES % (AUTO) 8.2 % (1.0-10.0); NEUTROPHILS % (AUTO) 70.3 % (45.0-75.0); PLATELET COUNT 309 K/UL (150-450); RED BLOOD COUNT 3.31 M/UL (4.20-5.40); RED CELL DISTRIBUTION WIDTH 14.9 % (11.6-14.8); WHITE BLOOD COUNT 7.9 K/UL (4.8-10.8)
[2018-10-02 10:15] LABS: ALANINE AMINOTRANSFERASE 9 U/L (12-78); ALBUMIN 2.7 G/DL (3.4-5.0); ALBUMIN/GLOBULIN RATIO 0.7 (1.0-2.7); ALKALINE PHOSPHATASE 44 U/L (46-116); ANION GAP 10 mmol/L (5-15); ASPARTATE AMINO TRANSFERASE 19 U/L (15-37); BILIRUBIN,TOTAL 0.2 MG/DL (0.2-1.0); BLOOD UREA NITROGEN 22 mg/dL (7-18); CALCIUM 8.9 MG/DL (8.5-10.1); CARBON DIOXIDE 25 MMOL/L (21-32); CHLORIDE 109 MMOL/L (98-107); CREATININE 1.4 MG/DL (0.55-1.30); POTASSIUM 3.6 MMOL/L (3.5-5.1); SODIUM 144 MMOL/L (136-145)
[2018-10-02 12:00] VITALS: BP 152/74
--- NOTE | 2018-10-02 13:55 | Cardiology Progress Note ---
Assessment/Plan Assessment/Plan fluid overload based on hsitory and CXR, at present time stable, echo is pending Subjective Subjective the patient is sleeping in her bed, she is comfortable, and denies any dyspnea or chest pain Objective Last 24 Hour Vital Signs Date Time Temp Pulse Resp B/P (MAP) Pulse Ox O2 Delivery O2 Flow Rate FiO2 10/02/18 12:00 83 10/02/18 12:00 97.1 83 18 152/74 (100) 95 10/02/18 08:15 Room Air 10/02/18 08:00 97 10/02/18 08:00 98.2 94 20 162/79 (106) 96 10/02/18 04:00 104 10/02/18 04:00 103 18 164/90 (114) 97 10/02/18 00:00 84 10/01/18 23:55 99.1 87 18 133/69 (90) 97 10/01/18 21:00 Room Air 10/01/18 20:00 83 10/01/18 20:00 98.8 85 18 119/74 (89) 95 10/01/18 16:00 88 10/01/18 16:00 98.6 92 18 107/62 (77) 97 General Appearance: alert EENT: PERRL/EOMI Neck: JVD Rhythm: NSR Cardiovascular: normal rate Respiratory/Chest: crackles/rales - only few Abdomen: non tender Extremities: trace edema Intake and Output 10/01/18 10/02/18 18:59 06:59 Intake Total 860 ml 50 ml Output Total 650 ml Balance 210 ml 50 ml Intake Oral 360 ml IV Total 500 ml 50 ml Output Urine Total 650 ml # Voids 4 Laboratory Tests Test 10/02/18 08:25 White Blood Count 7.9 K/UL (4.8-10.8) Red Blood Count 3.31 M/UL (4.20-5.40) L Hemoglobin 8.4 G/DL (12.0-16.0) L Hematocrit 26.9 % (37.0-47.0) L Mean Corpuscular Volume 81 FL (80-99) Mean Corpuscular Hemoglobin 25.5 PG (27.0-31.0) L Mean Corpuscular Hemoglobin Concent 31.3 G/DL (32.0-36.0) L Red Cell Distribution Width 14.9 % (11.6-14.8) H Platelet Count 309 K/UL (150-450) Mean Platelet Volume 6.1 FL (6.5-10.1) L Neutrophils (%) (Auto) 70.3 % (45.0-75.0) Lymphocytes (%) (Auto) 18.6 % (20.0-45.0) L Monocytes (%) (Auto) 8.2 % (1.0-10.0) Eosinophils (%) (Auto) 1.9 % (0.0-3.0) Basophils (%) (Auto) 1.0 % (0.0-2.0) Sodium Level 144 MMOL/L (136-145) Potassium Level 3.6 MMOL/L (3.5-5.1) Chloride Level 109 MMOL/L (98-107) H Carbon Dioxide Level 25 MMOL/L (21-32) Anion Gap 10 mmol/L (5-15) Blood Urea Nitrogen 22 mg/dL (7-18) H Creatinine 1.4 MG/DL (0.55-1.30) H Estimat Glomerular Filtration Rate mL/min (>60) Glucose Level 89 MG/DL (74-106) Calcium Level 8.9 MG/DL (8.5-10.1) Total Bilirubin 0.2 MG/DL (0.2-1.0) Aspartate Amino Transf (AST/SGOT) 19 U/L (15-37) Alanine Aminotransferase (ALT/SGPT) 9 U/L (12-78) L Alkaline Phosphatase 44 U/L (46-116) L Total Protein 6.5 G/DL (6.4-8.2) Albumin 2.7 G/DL (3.4-5.0) L Globulin 3.8 g/dL Albumin/Globulin Ratio 0.7 (1.0-2.7) L Blanca Pizarro MD Oct 02, 2018 13:55
--- NOTE | 2018-10-02 14:09 | General Progress Note ---
Assessment/Plan Assessment/Plan: S: I am doing better O: seems comfortable, interval improvement of leg edema . Denies SOB, CP PHYSICAL EXAMINATION:HEENT: Somewhat pale conjunctivae. Anicteric sclerae. NECK: Supple.LUNGS: Clear to auscultation.HEART: S1, S2 without murmurs or rubs.ABDOMEN: Soft and nontender. EXTREMITIES: Right lower extremity does not show any edema. The left lower extremity has some trace edema. Medication : reviewed and reconciled in the chart IMAGING: Chest x-ray dated September 29 reviewed. Renal ultrasound dated September 29 reviewed. ASSESSMENT: 1. Acute on chronic renal failure. 2. New onset of heart failure (likely diagnosis). 3. Anemia. 4. Hypokalemia. 5. Leukocytosis with no gross evidence of active acute infection. 6. Gastrointestinal and deep venous thrombosis prophylaxis. Plan: pending Echo, PT is consulted . notes from cardiology reviewed. current mgt Subjective Allergies: Coded Allergies: No Known Allergies (Unverified , 03/05/17) Objective Last 24 Hour Vital Signs Date Time Temp Pulse Resp B/P (MAP) Pulse Ox O2 Delivery O2 Flow Rate FiO2 10/02/18 12:00 83 10/02/18 12:00 97.1 83 18 152/74 (100) 95 10/02/18 08:15 Room Air 10/02/18 08:00 97 10/02/18 08:00 98.2 94 20 162/79 (106) 96 10/02/18 04:00 104 10/02/18 04:00 103 18 164/90 (114) 97 10/02/18 00:00 84 10/01/18 23:55 99.1 87 18 133/69 (90) 97 10/01/18 21:00 Room Air 10/01/18 20:00 83 10/01/18 20:00 98.8 85 18 119/74 (89) 95 10/01/18 16:00 88 10/01/18 16:00 98.6 92 18 107/62 (77) 97 Intake and Output 10/01/18 10/02/18 18:59 06:59 Intake Total 860 ml 50 ml Output Total 650 ml Balance 210 ml 50 ml Intake Oral 360 ml IV Total 500 ml 50 ml Output Urine Total 650 ml # Voids 4 Laboratory Tests 7/14/19 08:25: White Blood Count 7.9, Red Blood Count 3.31L, Hemoglobin 8.4L, Hematocrit 26.9L , Mean Corpuscular Volume 81, Mean Corpuscular Hemoglobin 25.5L, Mean Corpuscular Hemoglobin Concent 31.3L, Red Cell Distribution Width 14.9H, Platelet Count 309, Mean Platelet Volume 6.1L, Neutrophils (%) (Auto) 70.3, Lymphocytes (%) (Auto) 18.6L, Monocytes (%) (Auto) 8.2, Eosinophils (%) (Auto) 1.9, Basophils (%) (Auto) 1.0, Sodium Level 144, Potassium Level 3.6, Chloride Level 109H, Carbon Dioxide Level 25, Anion Gap 10, Blood Urea Nitrogen 22H, Creatinine 1.4H, Estimat Glomerular Filtration Rate , Glucose Level 89, Calcium Level 8.9, Total Bilirubin 0.2, Aspartate Amino Transf (AST/SGOT) 19, Alanine Aminotransferase (ALT/SGPT) 9L, Alkaline Phosphatase 44L, Total Protein 6.5, Albumin 2.7L, Globulin 3.8, Albumin/Globulin Ratio 0.7L Height (Feet): 5 Weight (Pounds): 137 Roscoe Choudhury MD Oct 02, 2018 14:09
[2018-10-02 16:00] VITALS: BP 112/60
--- NOTE | 2018-10-02 19:06 | NUR ---
HAND-OFF: Report given to Silvia BATISTA. Pt remains stable.
--- NOTE | 2018-10-02 19:07 | NUR ---
NURSE NOTES: Received pt from LYNNE Chaves. Pt awake, alert, and c/o constipation. Bed in lowest position. Daughter at bedside. Call light within reach. Will continue to monitor
[2018-10-02 20:00] VITALS: BP 114/65
[2018-10-02] MEDS: HYDROcodone/Acetamin 5/325 tab ORAL PRN (20:14)
[2018-10-02] MEDS: Miralax 17gm pkt ORAL SCH (20:14)
[2018-10-02] MEDS: Iron Sucrose 100 MG in NS 55 ML IV SCH (20:14)
[2018-10-03] VITALS: BP 123/63
[2018-10-03] MEDS: HYDROcodone/Acetamin 5/325 tab ORAL PRN ×4 (00:13→20:30)
[2018-10-03] MEDS: Zolpidem 5mg tab ORAL PRN ×2 (00:14→01:22)
[2018-10-03 04:00] VITALS: BP 119/60
[2018-10-03 07:07] LABS: ANION GAP 8 mmol/L (5-15); BLOOD UREA NITROGEN 22 mg/dL (7-18); CALCIUM 8.7 MG/DL (8.5-10.1); CARBON DIOXIDE 23 MMOL/L (21-32); CHLORIDE 109 MMOL/L (98-107); CREATININE 1.4 MG/DL (0.55-1.30); POTASSIUM 3.6 MMOL/L (3.5-5.1); SODIUM 139 MMOL/L (136-145)
--- NOTE | 2018-10-03 07:37 | NUR ---
HAND-OFF: Report given to LYNNE Juarez. Pt stable.
--- NOTE | 2018-10-03 07:38 | NUR ---
NURSE NOTES: Received report from LYNNE Vega. Patient is resting in bed, in stable condition, daughter at bed side. No signs and symptoms of acute distress at this time. Breathing is unlabored in room air. Bed is in lowest position with two side rails up, brakes engaged . Call light and bed side table are within reach. Will continue to follow plan of care.
--- NOTE | 2018-10-03 07:42 | Nephrology Progress Note ---
Assessment/Plan Assessment/Plan: 1. SHIMA- secondary to ATN from multiple etiologies from intravascular volume depletion while being on Lasix and NSAIDs. All of which have been discontinued. - Renal US negative - Cr down to 1.4. Stable for DC from renal point 2. Lower extremity edema, most likely secondary to NSAID use. - resolved 3. Congestive heart failure. -Defer management to Cardiology. Subjective Date patient seen: Oct 03, 2018 Time patient seen: 07:41 ROS Limited/Unobtainable: No Allergies: Coded Allergies: No Known Allergies (Unverified , 03/05/17) Subjective Patient eating bkfst. No distress Objective Last 24 Hour Vital Signs Date Time Temp Pulse Resp B/P (MAP) Pulse Ox O2 Delivery O2 Flow Rate FiO2 10/03/18 04:00 98.0 85 18 119/60 (79) 96 10/03/18 04:00 88 10/03/18 00:00 98.2 81 20 123/63 (83) 99 10/03/18 00:00 103 10/02/18 21:00 Room Air 10/02/18 20:00 96 10/02/18 20:00 99.3 97 20 114/65 (81) 97 10/02/18 16:00 98.9 90 20 112/60 (77) 96 10/02/18 16:00 89 10/02/18 12:00 83 10/02/18 12:00 97.1 83 18 152/74 (100) 95 10/02/18 08:15 Room Air 10/02/18 08:00 97 10/02/18 08:00 98.2 94 20 162/79 (106) 96 Intake and Output 10/02/18 10/03/18 19:00 07:00 Intake Total 240 ml Output Total 150 ml Balance 90 ml Intake Oral 240 ml Output Urine Total 150 ml # Voids 4 2 # Bowel Movements 1 Laboratory Tests 10/02/18 08:25: White Blood Count 7.9, Red Blood Count 3.31L, Hemoglobin 8.4L, Hematocrit 26.9L , Mean Corpuscular Volume 81, Mean Corpuscular Hemoglobin 25.5L, Mean Corpuscular Hemoglobin Concent 31.3L, Red Cell Distribution Width 14.9H, Platelet Count 309, Mean Platelet Volume 6.1L, Neutrophils (%) (Auto) 70.3, Lymphocytes (%) (Auto) 18.6L, Monocytes (%) (Auto) 8.2, Eosinophils (%) (Auto) 1.9, Basophils (%) (Auto) 1.0, Sodium Level 144, Potassium Level 3.6, Chloride Level 109H, Carbon Dioxide Level 25, Anion Gap 10, Blood Urea Nitrogen 22H, Creatinine 1.4H, Estimat Glomerular Filtration Rate , Glucose Level 89, Calcium Level 8.9, Ferritin 30, Total Bilirubin 0.2, Aspartate Amino Transf (AST/SGOT) 19, Alanine Aminotransferase (ALT/SGPT) 9L, Alkaline Phosphatase 44L, Total Protein 6.5, Albumin 2.7L, Globulin 3.8, Albumin/Globulin Ratio 0.7L 10/03/18 00:17: Stool Occult Blood [Pending] 10/03/18 05:56: Sodium Level 139, Potassium Level 3.6, Chloride Level 109H, Carbon Dioxide Level 23, Anion Gap 8, Blood Urea Nitrogen 22H, Creatinine 1.4H, Estimat Glomerular Filtration Rate , Glucose Level 121H, Calcium Level 8.7 Height (Feet): 5 Weight (Pounds): 137 General Appearance: no apparent distress, alert EENT: normal ENT inspection Neck: normal alignment, supple Cardiovascular: normal rate, regular rhythm Respiratory/Chest: lungs clear, normal breath sounds Abdomen: non tender, soft Edema: no edema noted Arm (L), no edema noted Arm (R), no edema noted Leg (L), no edema noted Leg (R), no edema noted Pedal (L), no edema noted Pedal (R), no edema noted Generalized Graham Deshpande MD Oct 03, 2018 07:42
--- NOTE | 2018-10-03 07:48 | General Progress Note ---
Assessment/Plan Assessment/Plan: Assessment - Chronic nausea - improved - Anemia with Iron deficiency - significant NSAID intake - mild azotemia Recommendations - abd ultrasound pending - Stool OB pending - trial of PPI - off NSAID - EGD/Colon tomorrow am Subjective Allergies: Coded Allergies: No Known Allergies (Unverified , 03/05/17) Subjective Feels better no Nausea or vomiting tolerating po diet (+) BM Objective Last 24 Hour Vital Signs Date Time Temp Pulse Resp B/P (MAP) Pulse Ox O2 Delivery O2 Flow Rate FiO2 10/03/18 04:00 98.0 85 18 119/60 (79) 96 10/03/18 04:00 88 10/03/18 00:00 98.2 81 20 123/63 (83) 99 10/03/18 00:00 103 10/02/18 21:00 Room Air 10/02/18 20:00 96 10/02/18 20:00 99.3 97 20 114/65 (81) 97 10/02/18 16:00 98.9 90 20 112/60 (77) 96 10/02/18 16:00 89 10/02/18 12:00 83 10/02/18 12:00 97.1 83 18 152/74 (100) 95 10/02/18 08:15 Room Air 10/02/18 08:00 97 10/02/18 08:00 98.2 94 20 162/79 (106) 96 Intake and Output 10/02/18 10/03/18 19:00 07:00 Intake Total 240 ml Output Total 150 ml Balance 90 ml Intake Oral 240 ml Output Urine Total 150 ml # Voids 4 2 # Bowel Movements 1 Laboratory Tests 10/02/18 08:25: White Blood Count 7.9, Red Blood Count 3.31L, Hemoglobin 8.4L, Hematocrit 26.9L , Mean Corpuscular Volume 81, Mean Corpuscular Hemoglobin 25.5L, Mean Corpuscular Hemoglobin Concent 31.3L, Red Cell Distribution Width 14.9H, Platelet Count 309, Mean Platelet Volume 6.1L, Neutrophils (%) (Auto) 70.3, Lymphocytes (%) (Auto) 18.6L, Monocytes (%) (Auto) 8.2, Eosinophils (%) (Auto) 1.9, Basophils (%) (Auto) 1.0, Sodium Level 144, Potassium Level 3.6, Chloride Level 109H, Carbon Dioxide Level 25, Anion Gap 10, Blood Urea Nitrogen 22H, Creatinine 1.4H, Estimat Glomerular Filtration Rate , Glucose Level 89, Calcium Level 8.9, Ferritin 30, Total Bilirubin 0.2, Aspartate Amino Transf (AST/SGOT) 19, Alanine Aminotransferase (ALT/SGPT) 9L, Alkaline Phosphatase 44L, Total Protein 6.5, Albumin 2.7L, Globulin 3.8, Albumin/Globulin Ratio 0.7L 10/03/18 00:17: Stool Occult Blood [Pending] 10/03/18 05:56: Sodium Level 139, Potassium Level 3.6, Chloride Level 109H, Carbon Dioxide Level 23, Anion Gap 8, Blood Urea Nitrogen 22H, Creatinine 1.4H, Estimat Glomerular Filtration Rate , Glucose Level 121H, Calcium Level 8.7 Height (Feet): 5 Weight (Pounds): 137 Objective NCAT supple CTA RR abd soft ND trace edema non focal Anibal Dash MD Oct 03, 2018 07:48
[2018-10-03 08:00] VITALS: BP 112/60
[2018-10-03] MEDS ORDERED: Nulytely 4L ORAL ONE (09:00)
[2018-10-03] MEDS: Aspirin Baby 81mg ORAL SCH (09:06)
[2018-10-03] MEDS: Docusate 100mg cap ORAL SCH ×2 (09:06→18:46)
[2018-10-03] MEDS: Tamsulosin 0.4mg cap ORAL SCH (09:06)
--- NOTE | 2018-10-03 09:19 | NUR ---
CASE MANAGEMENT:REVIEW 10/03/18 SI: CHF. AC/CHR RENAL FAILURE INTRAVASCULAR VOLUME DEPLETION 98.0 85 18 119/60 96% ON RA IS: IVF@50/HR IV VENOFER QHS PROTONIX PO QD ASA PO QD FLOMAX PO QD NORCO PO Q4HRS PRN : TELEMETRY STATUS DCP: FROM HOME PLAN: CONSENT FOR EGD NPO AFTER MIDNIGHT
--- NOTE | 2018-10-03 11:07 | NUR ---
RD ASSESSMENT & RECOMMENDATIONS SEE CARE ACTIVITY FOR COMPLETE ASSESSMENT DAILY ESTIMATED NEEDS: Needs based on Cardiac 48.9kg adj 25-30 kcals/kg [id number] total kcals 1-1.2 g protein/kg 49-69 g total protein Fluid per MD NUTRITION DIAGNOSIS: Decreased sodium needs r/t cardiac status as evidenced by pt w/ new CHF dx, adm w/ BL LE edema now resolved, elev BNP. (CURRENT DIET: NOW NPO for EGD) PO DIET RECOMMENDATIONS-->> LOW NA DIET as able/ GROUND TEXTURE as per request ADDITIONAL RECOMMENDATIONS: 1) Obtain calibrated bed scale wts 2) Monitor lytes w/ daily laxative use 3) BG mildly elev, rec to monitor need for niss
[2018-10-03 12:00] VITALS: BP 119/60
--- NOTE | 2018-10-03 12:04 | Diagnostic Imaging Report ---
Indication: Abdominal pain, abnormal renal function tests Technique: Mahoney-scale and duplex images of the upper abdomen were obtained. Doppler interrogation of the portal and hepatic veins Comparison: Reference made to renal ultrasound 09/09/2017, abdomen pelvis CT 09/06/2017 Findings: Gallbladder is unremarkable, without stones, wall thickening, nor pericholecystic fluid. Common bile duct measures 8 mm in diameter. No intrahepatic biliary ductal dilatation. Liver demonstrates normal echogenicity, no focal abnormality. Portal vein and hepatic veins are patent. Pancreas is unremarkable. Spleen is unremarkable. Left kidney measures 8.5 cm in length. Right kidney measures 8.5 cm length. Both kidneys demonstrate normal echogenicity. There is no hydronephrosis. Left kidney demonstrates a small cyst . Non-aneurysmal abdominal aorta . Impression: Mildly ectatic common bile duct. Probably related to patient's age. Downstream obstruction not completely excludable, correlation with liver function tests is recommended. Consider MRCP if clinically indicated Negative for gallstones Incidental finding small left renal cyst
[2018-10-03 16:00] VITALS: BP 115/62
--- NOTE | 2018-10-03 19:05 | NUR ---
HAND-OFF: Report given to LYNNE Romeo.
[2018-10-03] MEDS ORDERED: Fleet's Enema 133ml RECTAL SCH (19:45)
[2018-10-03] MEDS ORDERED: Sorbitol Solution UD 30ml ORAL SCH ×2 (19:45→23:00)
[2018-10-03 20:00] VITALS: BP 120/68
[2018-10-03] MEDS ORDERED: Sorbitol Solution UD 30ml ORAL ONE ×2 (20:00→23:00)
[2018-10-03] MEDS: Iron Sucrose 100 MG in NS 55 ML IV SCH (21:08)
[2018-10-03] MEDS: Miralax 17gm pkt ORAL SCH (21:08)
[2018-10-04] VITALS (13 sets, daily range): BP systolic 106–158; BP diastolic 52–86
[2018-10-04] MEDS: Zolpidem 5mg tab ORAL PRN ×2 (00:10→01:15)
[2018-10-04] MEDS ORDERED: Fleet's Enema 133ml RECTAL SCH (05:00)
--- NOTE | 2018-10-04 07:30 | NUR ---
NURSE NOTES: Pt picked up by transporter for EGD and colonoscopy.
--- NOTE | 2018-10-04 07:31 | NUR ---
NURSE NOTES: Received report from LYNNE Romeo. Patient is resting in bed, in stable condition with no rashard and symptoms of acute distress at this time. Breathing is unlabored in room air. IV site is intact and running at RX dose. Bed is in lowest position with two side rails up, brakes engaged . Call light and bed side table are within reach. Will continue plan of care. Patient transferred to GI lab for her procedures.
[2018-10-04 07:35] LABS: ANION GAP 11 mmol/L (5-15); BLOOD UREA NITROGEN 14 mg/dL (7-18); CARBON DIOXIDE 20 MMOL/L (21-32); CHLORIDE 115 MMOL/L (98-107); CREATININE 1.2 MG/DL (0.55-1.30); POTASSIUM 3.7 MMOL/L (3.5-5.1); SODIUM 146 MMOL/L (136-145)
--- NOTE | 2018-10-04 07:49 | NUR ---
HAND-OFF: Report given to LYNNE Luis.
[2018-10-04] MEDS ORDERED: Lidocaine 1% MPF 10mg/ml 5ml ONE (08:00)
[2018-10-04] MEDS ORDERED: Propofol 200mg/20ml IV ONE (08:00)
--- NOTE | 2018-10-04 08:01 | General Progress Note ---
Assessment/Plan Assessment/Plan: Assessment - Chronic nausea - improved - Anemia with Iron deficiency - significant NSAID intake - mild azotemia Recommendations - abd ultrasound - negative - Stool OB - negative - trial of PPI - off NSAID - EGD/Colon today Subjective Allergies: Coded Allergies: No Known Allergies (Unverified , 03/05/17) Subjective Feels better nausea improved (++) BM with prep OB (-) had abdominal ultrasound - negative Objective Last 24 Hour Vital Signs Date Time Temp Pulse Resp B/P (MAP) Pulse Ox O2 Delivery O2 Flow Rate FiO2 10/04/18 04:00 80 10/04/18 04:00 99.0 83 20 134/65 (88) 98 10/04/18 00:00 98.5 81 20 136/68 (90) 98 10/04/18 00:00 85 10/03/18 21:00 Room Air 10/03/18 20:00 98.2 80 18 120/68 (85) 96 10/03/18 16:00 79 10/03/18 16:00 98.5 80 18 115/62 (79) 96 10/03/18 12:00 98.2 79 18 119/60 (79) 95 10/03/18 12:00 81 10/03/18 09:00 Room Air Intake and Output 10/03/18 10/04/18 19:00 07:00 Intake Total 360 ml 790 ml Balance 360 ml 790 ml Intake Oral 360 ml IV Total 790 ml # Voids 4 4 # Bowel Movements 1 7 Laboratory Tests 10/04/18 06:00: Sodium Level 146H, Potassium Level 3.7, Chloride Level 115H, Carbon Dioxide Level 20L, Anion Gap 11, Blood Urea Nitrogen 14, Creatinine 1.2, Estimat Glomerular Filtration Rate , Glucose Level 79, Calcium Level 9.0 Height (Feet): 5 Height (Inches): 2.00 Weight (Pounds): 145 Objective NCAT supple CTA RR abd soft ND trace edema non focal Anibal Dash MD Oct 04, 2018 08:01
--- NOTE | 2018-10-04 08:02 | Pre-Procedure Note/Attestation ---
Pre-Procedure Note/Attestation Complete Prior to Procedure Planned Procedure: not applicable Procedure Narrative: Iron deficiency anemia Indications for Procedure Pre-Operative Diagnosis: (++) inspisated mucous in upper airway, suctioned, PEG placed Attestation I attest that I discussed the nature of the procedure; its benefits; risks and complications; and alternatives (and the risks and benefits of such alternatives ), prior to the procedure, with the patient (or the patient's legal transportation services representative). I attest that, if there was a reasonable possibility of needing a blood transfusion, the patient (or the patient's legal transportation services representative) was given the [place] [employer] standardized written summary, pursuant to the [place] Blood Safety Act ([place] Health and Safety Code # 1645, as amended). I attest that I re-evaluated the patient just prior to the surgery and that there has been no change in the patient's H&P, except as documented below: Anibal Dash MD Oct 04, 2018 08:02
--- NOTE | 2018-10-04 08:59 | Anethesia Preoperative Eval ---
Anesthesia Pre-op PMH/ROS General Date of Evaluation: Oct 04, 2018 Time of Evaluation: 08:17 Anesthesiologist: wyatt ASA Score: ASA 4 Mallampati Score Class I : Soft palate, uvula, fauces, pillars visible Class II: Soft palate, uvula, fauces visible Class III: Soft palate, base of uvula visible Class IV: Only hard plate visible Mallampati Classification: Class II Surgeon: [email or web address] Diagnosis: anemia Surgical Procedure: egd/colonoscopy Anesthesia History: none Social History: smoking - nonsmoker Family History: no anesthesia problems Allergies: Coded Allergies: No Known Allergies (Unverified , 03/05/17) Medications: see eMAR Patient NPO?: Yes Past Medical History Cardiovascular: Reports: other - chf, Gastrointestinal/Genitourinary: Reports: GERD, other - tatyana, dialysis, uti PSxH Narrative: hip replacement, shoulder reduction, Anesthesia Pre-op Phys. Exam Physician Exam Last Vital Signs Date Time Temp Pulse Resp B/P (MAP) Pulse Ox O2 Delivery O2 Flow Rate FiO2 10/04/18 07:30 98.1 82 18 139/86 (103) 95 10/03/18 21:00 Room Air Constitutional: NAD Neurologic: CN 2-12 intact Cardiovascular: RRR Respiratory: CTA Airway Exam Mallampati Score: Class II MO: limited Neck: flexible TMD: 2fb ROM: limited Teeth: missing Anesthesia Pre-op A/P Labs Chemistry Test 10/04/18 06:00 Sodium Level 146 MMOL/L (136-145) H Potassium Level 3.7 MMOL/L (3.5-5.1) Chloride Level 115 MMOL/L (98-107) H Carbon Dioxide Level 20 MMOL/L (21-32) L Anion Gap 11 mmol/L (5-15) Blood Urea Nitrogen 14 mg/dL (7-18) Creatinine 1.2 MG/DL (0.55-1.30) Estimat Glomerular Filtration Rate mL/min (>60) Glucose Level 79 MG/DL (74-106) Calcium Level 9.0 MG/DL (8.5-10.1) Risk Assessment & Plan Assessment: asa4 Plan: mac Status Change Before Surgery: No Pre-Antibiotics Drug: Magy Stanton MD Oct 04, 2018 08:59
[2018-10-04] MEDS ORDERED: Midazolam 2mg/2ml Inj IVP PRN (09:00)
[2018-10-04] MEDS ORDERED: fentaNYL 100 mcg/2 mL IV PRN (09:00)
[2018-10-04] MEDS ORDERED: Atropine Inj 1mg/10ml Syr IV PRN (09:00)
[2018-10-04] MEDS ORDERED: DiphenhydrAMINE 50mg/ml Inj IVP PRN (09:00)
--- NOTE | 2018-10-04 09:04 | Nephrology Progress Note ---
Assessment/Plan Assessment/Plan: 1. SHIMA- secondary to ATN from multiple etiologies from intravascular volume depletion while being on Lasix and NSAIDs. All of which have been discontinued. - Renal US negative - Cr down to 1.2. Stable for DC from renal point 2. Lower extremity edema, most likely secondary to NSAID use. - resolved. PRn lasix if needed 3. Congestive heart failure. -Defer management to Cardiology. 4. Anemia- EGD and colonoscopy today Subjective Date patient seen: Oct 04, 2018 Time patient seen: 09:03 Allergies: Coded Allergies: No Known Allergies (Unverified , 03/05/17) Subjective Patient went to EGD and colonoscopy Objective Last 24 Hour Vital Signs Date Time Temp Pulse Resp B/P (MAP) Pulse Ox O2 Delivery O2 Flow Rate FiO2 10/04/18 07:30 98.1 82 18 139/86 (103) 95 10/04/18 04:00 80 10/04/18 04:00 99.0 83 20 134/65 (88) 98 10/04/18 00:00 98.5 81 20 136/68 (90) 98 10/04/18 00:00 85 10/03/18 21:00 Room Air 10/03/18 20:00 98.2 80 18 120/68 (85) 96 10/03/18 16:00 79 10/03/18 16:00 98.5 80 18 115/62 (79) 96 10/03/18 12:00 98.2 79 18 119/60 (79) 95 10/03/18 12:00 81 Intake and Output 10/03/18 10/04/18 19:00 07:00 Intake Total 360 ml 790 ml Balance 360 ml 790 ml Intake Oral 360 ml IV Total 790 ml # Voids 4 4 # Bowel Movements 1 7 Laboratory Tests 10/04/18 06:00: Sodium Level 146H, Potassium Level 3.7, Chloride Level 115H, Carbon Dioxide Level 20L, Anion Gap 11, Blood Urea Nitrogen 14, Creatinine 1.2, Estimat Glomerular Filtration Rate , Glucose Level 79, Calcium Level 9.0 Height (Feet): 5 Height (Inches): 2.00 Weight (Pounds): 145 Graham Deshpande MD Oct 04, 2018 09:04
[2018-10-04] MEDS ORDERED: NORCO 5-325 TA1 EACH ORAL (09:16)
--- NOTE | 2018-10-04 09:44 | Immediate Post-Op Evaluation ---
Immediate Post-Op Evalulation Immediate Post-Op Evalulation Procedure: egd/colonoscopy w/bx Date of Evaluation: Oct 04, 2018 Time of Evaluation: 09:29 IV Fluids: 250ml 0.9ns Blood Products: none Estimated Blood Loss: negligible Blood Pressure Systolic: 149 Blood Pressure Diastolic: 72 Pulse Rate: 88 Respiratory Rate: 18 O2 Sat by Pulse Oximetry: 97 Temperature (Fahrenheit): 98.1 Pain Score (1-10): 0 Nausea: No Vomiting: No Complications none Patient Status: awake, reacts, patent Hydration Status: adequate Drug: Magy Stanton MD Oct 04, 2018 09:44
--- NOTE | 2018-10-04 09:45 | 48 Hour Post Anesthesia Eval ---
Post Anesthesia Evaluation Procedure: egd/colonoscopy w/bx Date of Evaluation: Oct 04, 2018 Time of Evaluation: 09:31 Blood Pressure Systolic: 146 0: 73 Pulse Rate: 90 Respiratory Rate: 18 Temperature (Fahrenheit): 98.1 O2 Sat by Pulse Oximetry: 97 Airway: patent Nausea: No Vomiting: No Pain Intensity: 0 Hydration Status: adequate Cardiopulmonary Status: stable Mental Status/LOC: patient returned to baseline Post-Anesthesia Complications: none Follow-up care needed: N/A Magy Wise MD Oct 04, 2018 09:45
--- NOTE | 2018-10-04 09:50 | NUR ---
NURSE NOTES: Received patient via gurney after her procedures. Report given by Jerri Patino RN. Patient in stable condition, Vital signs stable, NSR, Breathing unlabored in room air. Patient is alert and oriented x3, be able to talk. Will continue plan of care.
[2018-10-04] MEDS: Aspirin Baby 81mg ORAL SCH (10:00)
[2018-10-04] MEDS: Docusate 100mg cap ORAL SCH ×2 (10:00→17:03)
[2018-10-04] MEDS: Tamsulosin 0.4mg cap ORAL SCH (10:00)
--- NOTE | 2018-10-04 10:48 | NUR ---
PT NOTE Attempted to see patient for PT treatment. Patient s/p EGD/colonoscopy, sleeping. Chris BATISTA notified, will re-attempt later as schedule permits.
--- NOTE | 2018-10-04 12:28 | General Progress Note ---
Assessment/Plan Assessment/Plan: S: I am not doing better O: patient is after the procedure, feels nauseas , interval improvement of leg edema . Denies SOB, CP PHYSICAL EXAMINATION:HEENT: Somewhat pale conjunctivae. Anicteric sclerae. NECK: Supple.LUNGS: Clear to auscultation.HEART: S1, S2 without murmurs or rubs.ABDOMEN: Soft and nontender. EXTREMITIES: Right lower extremity does not show any edema. The left lower extremity has some trace edema. Medication : reviewed and reconciled in the chart IMAGING: Chest x-ray dated September 29 reviewed. Renal ultrasound dated September 29 reviewed. ASSESSMENT: 1. Acute on chronic renal failure. 2. New onset of heart failure (likely diagnosis). 3. Anemia. 4. Hypokalemia. 5. Leukocytosis with no gross evidence of active acute infection. 6. Gastrointestinal and deep venous thrombosis prophylaxis. Plan: Wants to go home, refusing SNIF option once clear by GI, may fu as o/p Subjective Allergies: Coded Allergies: No Known Allergies (Unverified , 03/05/17) Objective Last 24 Hour Vital Signs Date Time Temp Pulse Resp B/P (MAP) Pulse Ox O2 Delivery O2 Flow Rate FiO2 10/04/18 09:55 97.8 87 22 156/75 97 Room Air 10/04/18 09:50 87 21 141/80 97 Room Air 10/04/18 09:45 90 18 97 10/04/18 09:44 88 18 97 10/04/18 09:40 86 20 146/73 96 Room Air 10/04/18 09:30 88 21 141/75 96 Room Air 10/04/18 09:25 90 17 146/73 97 Room Air 10/04/18 09:20 86 16 153/84 98 Nasal Cannula 3 10/04/18 09:17 98.1 88 18 149/77 97 Nasal Cannula 3 10/04/18 09:00 Room Air 10/04/18 08:00 84 10/04/18 07:30 98.1 82 18 139/86 (103) 95 10/04/18 04:00 80 10/04/18 04:00 99.0 83 20 134/65 (88) 98 10/04/18 00:00 98.5 81 20 136/68 (90) 98 10/04/18 00:00 85 10/03/18 21:00 Room Air 10/03/18 20:00 98.2 80 18 120/68 (85) 96 10/03/18 16:00 79 10/03/18 16:00 98.5 80 18 115/62 (79) 96 Intake and Output 10/03/18 10/04/18 19:00 07:00 Intake Total 360 ml 790 ml Balance 360 ml 790 ml Intake Oral 360 ml IV Total 790 ml # Voids 4 4 # Bowel Movements 1 7 Laboratory Tests 10/04/18 06:00: Sodium Level 146H, Potassium Level 3.7, Chloride Level 115H, Carbon Dioxide Level 20L, Anion Gap 11, Blood Urea Nitrogen 14, Creatinine 1.2, Estimat Glomerular Filtration Rate , Glucose Level 79, Calcium Level 9.0 Height (Feet): 5 Height (Inches): 2.00 Weight (Pounds): 136 Roscoe Choudhury MD Oct 04, 2018 12:28
[2018-10-04] MEDS: HYDROcodone/Acetamin 5/325 tab ORAL PRN ×3 (13:28→21:57)
--- NOTE | 2018-10-04 19:12 | Cardiology Progress Note ---
Assessment/Plan Assessment/Plan 1. Peripheral edema resolved status post diuretics. 2. Chronic renal insufficiency. 3. History of intractable nausea and vomiting. 4. Anemia. 5. Electrolyte abnormalities echo not reported or performed she seem to be doing well edema has resolved renal noted had bi au off nsaid discouraged for over use of pain meds in total not seem in sig chf at this time na on higher side of normal cr improved sig sicne admission home soon Subjective Cardiovascular: Denies: chest pain, lightheadedness Gastrointestinal/Abdominal: Reports: abdominal pain, nausea Genitourinary: Reports: burning Objective Last 24 Hour Vital Signs Date Time Temp Pulse Resp B/P (MAP) Pulse Ox O2 Delivery O2 Flow Rate FiO2 10/04/18 16:00 87 10/04/18 16:00 98.8 105 18 106/52 (70) 95 10/04/18 12:00 98.0 92 18 158/78 (104) 95 10/04/18 12:00 94 10/04/18 09:55 97.8 87 22 156/75 97 Room Air 10/04/18 09:50 87 21 141/80 97 Room Air 10/04/18 09:45 90 18 97 10/04/18 09:44 88 18 97 10/04/18 09:40 86 20 146/73 96 Room Air 10/04/18 09:30 88 21 141/75 96 Room Air 10/04/18 09:25 90 17 146/73 97 Room Air 10/04/18 09:20 86 16 153/84 98 Nasal Cannula 3 10/04/18 09:17 98.1 88 18 149/77 97 Nasal Cannula 3 10/04/18 09:00 Room Air 10/04/18 08:00 84 10/04/18 07:30 98.1 82 18 139/86 (103) 95 10/04/18 04:00 80 10/04/18 04:00 99.0 83 20 134/65 (88) 98 10/04/18 00:00 98.5 81 20 136/68 (90) 98 10/04/18 00:00 85 10/03/18 21:00 Room Air 10/03/18 20:00 98.2 80 18 120/68 (85) 96 General Appearance: no apparent distress, alert Neck: supple Cardiovascular: normal rate Respiratory/Chest: lungs clear Abdomen: normal bowel sounds, non tender, soft Extremities: no swelling Intake and Output 10/03/18 10/04/18 18:59 06:59 Intake Total 360 ml 790 ml Balance 360 ml 790 ml Intake Oral 360 ml IV Total 790 ml # Voids 4 4 # Bowel Movements 1 7 Laboratory Tests Test 10/04/18 06:00 Sodium Level 146 MMOL/L (136-145) H Potassium Level 3.7 MMOL/L (3.5-5.1) Chloride Level 115 MMOL/L (98-107) H Carbon Dioxide Level 20 MMOL/L (21-32) L Anion Gap 11 mmol/L (5-15) Blood Urea Nitrogen 14 mg/dL (7-18) Creatinine 1.2 MG/DL (0.55-1.30) Estimat Glomerular Filtration Rate mL/min (>60) Glucose Level 79 MG/DL (74-106) Calcium Level 9.0 MG/DL (8.5-10.1) Forrest Obando MD Oct 04, 2018 19:12
--- NOTE | 2018-10-04 19:25 | NUR ---
HAND-OFF: Report given to LYNNE Romeo.
--- NOTE | 2018-10-04 19:30 | NUR ---
NURSE NOTES: Pt received from LYNNE Gallegos alert and oriented x4 with no acute s/s of distress noted. IV site asymptomatic and patent. Bed in lowest position, call light and belongings within reach. Daughter Namrata at bedside.
[2018-10-04] MEDS: Miralax 17gm pkt ORAL SCH ×2 (21:00→21:15)
[2018-10-04] MEDS: Iron Sucrose 100 MG in NS 55 ML IV SCH (21:15)
[2018-10-05] VITALS: BP 112/60
[2018-10-05] MEDS: Zolpidem 5mg tab ORAL PRN ×2 (00:16→01:06)
[2018-10-05 04:00] VITALS: BP 119/66
--- NOTE | 2018-10-05 07:45 | NUR ---
HAND-OFF: Report given to LYNNE Elias and LYNNE Ye. No acute s/s of distress noted. Plan of care endorsed.
[2018-10-05 07:46] LABS: ANION GAP 11 mmol/L (5-15); BLOOD UREA NITROGEN 14 mg/dL (7-18); CALCIUM 8.6 MG/DL (8.5-10.1); CARBON DIOXIDE 20 MMOL/L (21-32); CHLORIDE 113 MMOL/L (98-107); CREATININE 1.1 MG/DL (0.55-1.30); POTASSIUM 3.6 MMOL/L (3.5-5.1); SODIUM 144 MMOL/L (136-145)
--- NOTE | 2018-10-05 07:51 | NUR ---
NURSE NOTES: Received report from Sarahi Romeo. Patient in bed awake and alert.Denies pain or discomfort. daughter at bedside. will monitor.
--- NOTE | 2018-10-05 07:53 | Nephrology Progress Note ---
Assessment/Plan Assessment/Plan: 1. SHIMA- secondary to ATN from multiple etiologies from intravascular volume depletion while being on Lasix and NSAIDs. - Renal US negative - resolved Cr 1.1 2. Lower extremity edema, most likely secondary to NSAID use. - resolved. 3. Congestive heart failure. -Defer management to Cardiology. 4. Anemia- s/p EGD and colonoscopy, per GI mgmt Subjective Date patient seen: Oct 05, 2018 Time patient seen: 07:52 ROS Limited/Unobtainable: No Allergies: Coded Allergies: No Known Allergies (Unverified , 03/05/17) Subjective Patient resting with family at bedside Objective Last 24 Hour Vital Signs Date Time Temp Pulse Resp B/P (MAP) Pulse Ox O2 Delivery O2 Flow Rate FiO2 10/05/18 04:00 82 10/05/18 04:00 98.4 79 18 119/66 (83) 97 10/05/18 00:00 75 10/05/18 00:00 99.0 77 18 112/60 (77) 95 10/04/18 21:00 Room Air 10/04/18 20:00 80 10/04/18 20:00 98.6 80 18 126/61 (82) 97 10/04/18 16:00 87 10/04/18 16:00 98.8 105 18 106/52 (70) 95 10/04/18 12:00 98.0 92 18 158/78 (104) 95 10/04/18 12:00 94 10/04/18 09:55 97.8 87 22 156/75 97 Room Air 10/04/18 09:50 87 21 141/80 97 Room Air 10/04/18 09:45 90 18 97 10/04/18 09:44 88 18 97 10/04/18 09:40 86 20 146/73 96 Room Air 10/04/18 09:30 88 21 141/75 96 Room Air 10/04/18 09:25 90 17 146/73 97 Room Air 10/04/18 09:20 86 16 153/84 98 Nasal Cannula 3 10/04/18 09:17 98.1 88 18 149/77 97 Nasal Cannula 3 10/04/18 09:00 Room Air 10/04/18 08:00 84 Intake and Output 10/04/18 10/05/18 19:00 07:00 Intake Total 550 ml 690 ml Output Total 0 ml Balance 550 ml 690 ml Intake Oral 150 ml IV Total 400 ml 690 ml Estimated Blood Loss 0 ml # Voids 2 4 Laboratory Tests 10/05/18 06:25: Sodium Level 144, Potassium Level 3.6, Chloride Level 113H, Carbon Dioxide Level 20L, Anion Gap 11, Blood Urea Nitrogen 14, Creatinine 1.1, Estimat Glomerular Filtration Rate , Glucose Level 91, Calcium Level 8.6 Height (Feet): 5 Height (Inches): 2.00 Weight (Pounds): 142 General Appearance: no apparent distress EENT: normal ENT inspection Neck: normal alignment, supple Cardiovascular: normal rate, regular rhythm Respiratory/Chest: lungs clear, normal breath sounds Abdomen: non tender, soft Edema: no edema noted Arm (L), no edema noted Arm (R), no edema noted Leg (L), no edema noted Leg (R), no edema noted Pedal (L), no edema noted Pedal (R), no edema noted Generalized Graham Deshpande MD Oct 05, 2018 07:53
[2018-10-05 08:00] VITALS: BP 137/67
--- NOTE | 2018-10-05 08:07 | NUR ---
CASE MANAGEMENT:REVIEW 10/05/18 SI: CHF. AC/CHR RENAL FAILURE INTRAVASCULAR VOLUME DEPLETION S/P COLONOSCOPY W/ BIOPSY AND SNARE POLYPECTOMY 98.4 79 18 119/66 97% ON RA IS: IVF@50/HR IV VENOFER QHS PROTONIX PO QD ASA PO QD FLOMAX PO QD NORCO PO Q4HRS PRN : TELEMETRY STATUS DCP: FROM HOME
--- NOTE | 2018-10-05 08:22 | NUR ---
DISCHARGE PLANNING PER MD'S REQUEST PATIENT HAS BEEN REFERRED TO [facility] T: [phone] F: [phone] *CLINCALS HAVE BEEN FAXED
[2018-10-05] MEDS: Tamsulosin 0.4mg cap ORAL SCH (08:49)
[2018-10-05] MEDS: Aspirin Baby 81mg ORAL SCH (08:49)
[2018-10-05] MEDS: Docusate 100mg cap ORAL SCH (09:00)
--- NOTE | 2018-10-05 10:33 | General Progress Note ---
Assessment/Plan Status: stable Assessment/Plan: S: I am feeling better O: patient seem comfortable. Denies SOB, CP PHYSICAL EXAMINATION:HEENT: Somewhat pale conjunctivae. Anicteric sclerae. NECK: Supple.LUNGS: Clear to auscultation.HEART: S1, S2 without murmurs or rubs.ABDOMEN: Soft and nontender. EXTREMITIES: Right lower extremity does not show any edema. The left lower extremity has some trace edema. Medication : reviewed and reconciled in the chart IMAGING: Chest x-ray dated September 29 reviewed. Renal ultrasound dated September 29 reviewed. ASSESSMENT: 1. Acute on chronic renal failure. 2. New onset of heart failure (likely diagnosis). 3. Anemia. 4. Hypokalemia. 5. Leukocytosis with no gross evidence of active acute infection. 6. Gastrointestinal and deep venous thrombosis prophylaxis. Plan: Wants to go home, refusing SNIF option May fu as o/p home with PT and HHC Subjective Allergies: Coded Allergies: No Known Allergies (Unverified , 03/05/17) Objective Last 24 Hour Vital Signs Date Time Temp Pulse Resp B/P (MAP) Pulse Ox O2 Delivery O2 Flow Rate FiO2 10/05/18 09:00 Room Air 10/05/18 08:00 87 10/05/18 08:00 98.5 84 20 137/67 (90) 97 10/05/18 04:00 82 10/05/18 04:00 98.4 79 18 119/66 (83) 97 10/05/18 00:00 75 10/05/18 00:00 99.0 77 18 112/60 (77) 95 10/04/18 21:00 Room Air 10/04/18 20:00 80 10/04/18 20:00 98.6 80 18 126/61 (82) 97 10/04/18 16:00 87 10/04/18 16:00 98.8 105 18 106/52 (70) 95 10/04/18 12:00 98.0 92 18 158/78 (104) 95 10/04/18 12:00 94 Intake and Output 10/04/18 10/05/18 19:00 07:00 Intake Total 550 ml 690 ml Output Total 0 ml Balance 550 ml 690 ml Intake Oral 150 ml IV Total 400 ml 690 ml Estimated Blood Loss 0 ml # Voids 2 4 Laboratory Tests 10/05/18 06:25: Sodium Level 144, Potassium Level 3.6, Chloride Level 113H, Carbon Dioxide Level 20L, Anion Gap 11, Blood Urea Nitrogen 14, Creatinine 1.1, Estimat Glomerular Filtration Rate , Glucose Level 91, Calcium Level 8.6 Height (Feet): 5 Height (Inches): 2.00 Weight (Pounds): 136 Roscoe Choudhury MD Oct 05, 2018 10:33
[2018-10-05 12:00] VITALS: BP 123/66
--- NOTE | 2018-10-05 15:30 | NUR ---
NURSE NOTES: Patient discharge to home with daughter in private vehicle. Patient left the floor in wheelchair, Heart monitir take off. all belongings accounted fo, saline lock discontinued. patient left in stable condition.
--- NOTE | 2018-10-05 17:30 | Operative Note - Dictated ---
DATE OF OPERATION: 10/04/2018 PROCEDURE: Upper gastrointestinal endoscopy with biopsy as well as colonoscopy with biopsy and polypectomy. SURGEON: Anibal Dash M.D. ANESTHESIA: Please see the separate anesthesiologist notes for details. PRE-ENDOSCOPIC DIAGNOSES: 1. Anemia. 2. Nausea. POST-ENDOSCOPIC DIAGNOSES: 1. Normal upper endoscopy status post random biopsy of the duodenum, stomach, lower esophagus, and mid esophagus. 2. The colon polyp in the proximal transverse colon at 70 cm status post biopsy removal. 3. Colon polyps in the more distal transverse colon at 65 cm status post cold snare polypectomy removal. 4. Sigmoid diverticulosis. 5. Mild sigmoid erythema of doubtful significance. Status post random biopsies. SURGEON: Anibal Dash M.D. ANESTHESIA: Please see the separate anesthesiologist notes for details. DESCRIPTION OF PROCEDURE: The procedure, its risks, indications, alternatives, and possible complications including, but not limited to bleeding, infection, perforation, , and anesthesia complications were explained to the patient through her daughter as a instrumentation designer and an informed consent was obtained. The patient was then sedated in the left lateral decubitus position. A diagnostic upper endoscope was introduced through oropharynx and advanced to the duodenum. The endoscope was then gradually withdrawn and the mucosa was examined carefully. Examination of the mucosa did not reveal any abnormalities. Biopsies of the duodenum, stomach, lower esophagus, and mid esophagus were sent to pathology for review. Thereafter, the endoscope was removed. The rectal exam was done and the colonoscope was introduced into the rectum and advanced to the cecum without difficulty. The cecum was identified by the appearance of the ileocecal valve. The colonoscope was then gradually withdrawn and the mucosa was examined carefully. Examination of the colonic mucosa revealed a diminutive polyp in the transverse colon at 70 cm, which was removed with the biopsy forceps. A more distal transverse colon polyp at 65 cm was removed with a snare polypectomy and this was of subcentimeter size. There was sigmoid diverticulosis and in this area, there was some mild degree of erythema of doubtful significance. This area was biopsied and biopsies were sent to pathology for review. Retroflexed view of the rectum did not reveal any abnormalities. The colonoscope was removed and the patient was sent to recovery in good condition. COMPLICATIONS: None. RECOMMENDATIONS: 1. Follow up biopsy results. 2. High-fiber diet. 3. Consider outpatient capsule endoscopy to evaluate the small bowel for any cause of chronic anemia. Anibal Dash M.D. DR: GISELA JOB#: [id number] CC:
--- NOTE | 2018-10-05 18:20 | Brief Operative Note ---
Immediate Post Operative Note Operative Note Chief Complaint: anemia Pre-op Diagnosis: (++) inspisated mucous in upper airway, suctioned, PEG placed Procedure: esophagogastroduodenoscopycolon Post-op Diagnosis: normal EGD, colon polyps, tics Surgeon: dixie Anesthesiologist: kristel pham Anesthesia: MAC Specimen: yes Complications: none Condition: stable Fluids: recorded Estimated Blood Loss: none Drains: none Implant(s) used?: No Anibal Dash MD Oct 05, 2018 18:20
--- NOTE | 2018-10-05 18:20 | Endoscopy Procedure Note ---
Endoscopy Procedure Note General Indication for Procedure: anemia Procedures Performed: EGD, colonoscopy Operative Findings/Diagnosis: normal EGD, colon polyps, tics Specimen: yes Pt Tolerated Procedure Well: Yes Estimated Blood Loss: none Anesthesia Anesthesiologist: see report Anesthesia: MAC Medications Medication Given: see anesthesia record Inserted Devices Implant(s) used?: No GI Core Measures 50 yrs or older w/o bx or poly: Not Applicable 10yrs. F/U recommended: Not Applicable If not recommended, why?: Anibal Dash MD Oct 05, 2018 18:19
--- NOTE | 2018-10-05 18:43 | Diagnostic Imaging Report ---
APPROVED REPORT CPT Code: 49280 Present Symptoms Comments: BILATERAL LEGS PAIN. BILATERAL: Imaging reveals a patent deep venous system bilaterally. There is no evidence of thrombus within the femoral, popliteal or tibial segments. The greater saphenous veins are also within normal limits. Doppler indicates normal spontaneous flow within these segments.
--- NOTE | 2018-10-06 13:29 | Discharge Summary ---
Discharge Summary Discharge Summary _ DATE OF ADMISSION: 09/29/2018 DATE OF DISCHARGE: 10/05/2018 DISCHARGED BY: Dr. Juan Choudhury CONSULTANTS: Dr. Graham Dash BRIEF HOSPITAL COURSE: Patient is an 87-year-old [place] female, who presented to hospital due to leg edema. She was started on Lasix. Daughter was concerned. She was reported to be taking 18 tablets of ibuprofen every day in addition to tramadol. She had worsening of the swelling and sensation of shortness of breath. She had been bedbound secondary to pain and swelling. She has medical history significant for hypertension, osteoarthritis, GERD, insomnia, recurrent UTI and history of hip replacement. On evaluation at the ED, blood pressure was 85/55, pulse rate 105. Saturating 93% on room air. Blood work showed WBC of 12 9, hematocrit 29. BUN was 28 and creatinine was elevated to 2.4. Troponin was negative. EKG was in sinus tachycardia with no acute changes. Chest x-ray showed interstitial pulmonary opacification, nonspecific. She was admitted for evaluation of edema and acute renal failure. She was admitted to telemetry. He was given IV hydration. Kidney function was monitored. Lasix was discontinued. Patient developed acute renal failure due to combination of diuretic and large amount of NSAIDs every day. She also complained of nausea and was found to be anemic. She was advised not to take any ibuprofen. GI was consulted for evaluation of nausea. Anemia work-up was done. She was given proton pump inhibitors. She was given bowel regimen and was able to have BM. Anemia work-up showed deficiency. She was given IV iron. Renal ultrasound showed increased echogenicity of renal cortex suggestive of parenchymal disease. Abdominal ultrasound showed mildly ectatic common bile duct. Negative for gallstones. Venous duplex of the lower extremities were negative for acute DVT bilaterally. She was given physical therapy. On 10/05/2018, she underwent EGD with colonoscopy. Patient had normal upper endoscopy. There was a polyp in the proximal transverse colon, status post removal colonic polyp in the more distal transverse colon at 65 cm status post cold snare polypectomy removal. There was mild sigmoid erythema of doubtful significance. She tolerated procedure well. Echocardiogram was done, however no official report. Edema resolved. Patient did not seem to have significant CHF. Kidney function improved. She refused SNF placement. She was eventually discharged home with PT and home health. FINAL DIAGNOSES: Acute on chronic renal failure SHIMA secondary to ATN from multiple etiologies from intravascular volume depletion while being on Lasix and NSAIDs New onset of heart failure Anemia Hypokalemia Leukocytosis Iron deficiency anemia Status post EGD and colonoscopy Intractable nausea and vomiting DISPOSITION: [place] home with home health. DISCHARGE MEDICATIONS: Refer to Discharge Medication List. DISCHARGE INSTRUCTIONS: Follow-up in a week. I have been assigned to complete a discharge summary on this account, I was not involved with the patient's management.--LISANDRO Issa Jacqueline Robles NP Oct 06, 2018 13:29
== END 2018-10-05 15:00 | disposition home or self-care (01) | DRG 683 ==
LOC: EDBEDREQ 20:14 → EMR 21:04 → 2E 21:12 → EDBEDREQ 21:28 → SDSOVERFLO 09-30 11:58 → 2E 09-30 12:00
PROC: 0DBL8ZZ Excision of Transverse Colon, Via Natural or Artificial Opening Endoscopic (ICD-10-PCS; principal; 2018-10-04 08:30)
PROC: 0DB68ZX Excision of Stomach, Via Natural or Artificial Opening Endoscopic, Diagnostic (ICD-10-PCS; principal; 2018-10-04 08:30)
PROC: 0DB98ZX Excision of Duodenum, Via Natural or Artificial Opening Endoscopic, Diagnostic (ICD-10-PCS; principal; 2018-10-04 08:30)
PROC: 0DB38ZX Excision of Lower Esophagus, Via Natural or Artificial Opening Endoscopic, Diagnostic (ICD-10-PCS; principal; 2018-10-04 08:30)
PROC: 0DB28ZX Excision of Middle Esophagus, Via Natural or Artificial Opening Endoscopic, Diagnostic (ICD-10-PCS; principal; 2018-10-04 08:30)
DX: N17.0 Acute kidney failure with tubular necrosis (principal); I13.0 Hypertensive heart and chronic kidney disease with heart failure and stage 1 through stage 4 chronic kidney disease, or unspecified chronic kidney disease; N39.0 Urinary tract infection, site not specified; E87.6 Hypokalemia; I10 Essential (primary) hypertension; K21.9 Gastro-esophageal reflux disease without esophagitis; D50.9 Iron deficiency anemia, unspecified; N18.9 Chronic kidney disease, unspecified; I50.9 Heart failure, unspecified; R11.2 Nausea with vomiting, unspecified; Z87.891 Personal history of nicotine dependence; Z96.649 Presence of unspecified artificial hip joint; M15.9 Polyosteoarthritis, unspecified; K63.5 Polyp of colon; K57.90 Diverticulosis of intestine, part unspecified, without perforation or abscess without bleeding; B96.20 Unspecified Escherichia coli [E. coli] as the cause of diseases classified elsewhere; Z16.12 Extended spectrum beta lactamase (ESBL) resistance; R60.0 Localized edema; T39.395A Adverse effect of other nonsteroidal anti-inflammatory drugs [NSAID], initial encounter
CPT/HCPCS: 36415; 71045; 76700; 76770; 80048; 80053; 81003; 82270; 82306; 82550; 82553; 82728; 83540; 83550; 83880; 84484; 85025; 93005; 93306; 93970; 94003; 94150; 99285; J8499